=== PATIENT | male | born 1945 | race Caucasian/White ===

== ENCOUNTER 2023-12-10 04:08 | Inpatient (IN) | payer MEDICARE, SELFPAY ==
[2023-12-10] VITALS (21 sets, daily range): BP systolic 82–145; BP diastolic 38–79; PULSE 83–117; RESP 15–34; TEMP 36–36.9; O2SAT 89–100; BMI 20.6; BMI 20.2
--- NOTE | 2023-12-10 04:38 | RAD_ITS ---
INDICATION: dyspnea EXAMINATION/TECHNIQUE: X-RAY - XR Chest 2 Views COMPARISON: None. FINDINGS: LINES/DEVICES: None. LUNGS: Lungs mildly hyperexpanded on lateral view. Posterior right lower lobe airspace opacity, best seen on lateral view. Diffuse mild interstitial thickening. No effusion. No pneumothorax. MEDIASTINUM AND CARDIOVASCULAR STRUCTURES: Cardiac silhouette not enlarged. BONES AND SOFT TISSUES: Unremarkable. RAD/Chest PA and Lateral IMPRESSION: Posterior right lower lobe atelectasis or consolidation. Correlate for clinical pneumonia. Findings compatible with chronic obstructive pulmonary disease. Electronically Signed: Dejon Gomes MD at 6:03 EDT ,
--- NOTE | 2023-12-10 04:38 | EKG12_ITS ---
Test Reason : SOB Blood Pressure : / mmHG Vent. Rate : 107 BPM Atrial Rate : 107 BPM P-R Int : 144 ms QRS Dur : 130 ms QT Int : 372 ms P-R-T Axes : 062 118 -36 degrees QTc Int : 496 ms Sinus tachycardia with Premature atrial complexes with Aberrant conduction Right bundle branch block Left posterior fascicular block Bifascicular block Inferior infarct , age undetermined Abnormal ECG Confirmed by EDUARD SLAUGHTER, TAM ([id number]), associate editor ADA CARPENTER ([id number]) on 12/13/2023 2:09:14 PM Referred By: Confirmed By:CANDACE CHAPA MD
[2023-12-10] MEDS: Ipratropium/Albuterol Sulfate 3 ML AMPUL.NEB INHALATION (04:44)
[2023-12-10 04:46] LABS: Absolute Lymphocyte Count 2.67 X10^3/uL (0.83-4.51); Absolute Neutrophil Count 11.1 X10^3/uL (2.0-7.7); Basophil# 0.12 X10^3/uL; Basophil% 0.8 % (0-1); Eosinophil# 0.31 X10^3/uL; Eosinophils% 2.1 % (0-5); Hematocrit 39.1 % (40-54); Hemoglobin 12.6 g/dL (13.0-16.5); Lymphocyte # 2.67 X10^3/ul (0.83-4.51); Lymphocyte % 17.8 % (19-41); Mean Corp Hgb Conc 32.2 g/dL (32-36); Mean Corpuscular Hgb 29.4 pg (27.0-32.0); Mean Corpuscular Volume 91.4 fL (80-94); Mean Platelet Vol. 11.5 fl (6.2-12.0); Monocyte% 4.7 % (0-10); NRBC Flagged by Analyzer 0 % (0-5); Neutrophil # 11.14 X10^3/uL (2.7-7.7); Platelet Count 204 K/mm3 (150-450); RBC Distribution Width CV 14.3 % (11.6-14.6); RBC Distribution Width SD 47.8 fl (35.1-43.9); Red Blood Count 4.28 M/mm3 (4.6-6.2)
[2023-12-10 05:09] LABS: Anion Gap 6 (5-15); BUN 23 mg/dL (7-18); Calcium,Total 8.7 mg/dL (8.5-10.1); Chloride 105 mmol/L (98-107); Creatinine, Serum 1.44 mg/dL (0.70-1.30); EST Glomerular Filtration Rate 51 mL/min (>60); Est Glom Filt Rate - Afr Amer 61 mL/min (>60); Estimated Creatinine Clearance 37.43 ml/min; Glucose 147 mg/dL (74-106); Magnesium 2.1 mg/dL (1.6-2.6); Potassium 3.6 mmol/L (3.5-5.1); Sodium Level 138 mmol/L (136-145); Troponin-I HS 479 pg/mL (3.0-78.0)
--- NOTE | 2023-12-10 05:21 | CT_ITS ---
INDICATION: chest pain EXAMINATION: CTA CHEST, ABDOMEN AND PELVIS WITH CONTRAST - TECHNIQUE: A CTA of the chest, abdomen, and pelvis is obtained with sagittal and coronal reconstructed MIP views. Three-dimensional surface rendered sequence of the thoracic and abdominal aorta was obtained. A radiation dose optimization technique was used for this scan. 75 mL of Isovue-370. Oral contrast: None. COMPARISON: Chest radiograph on same day. FINDINGS: THORACIC AORTA: Three-vessel aortic arch. Aortic valvular calcifications. Mild aortic atherosclerosis. No dissection or ectasia. ABDOMINAL AORTA: Aortic atherosclerosis with minimal infrarenal ectasia to 2.1 cm. Aortic branch vessels are patent. Accessory left renal artery noted. Extensive iliac artery atherosclerosis without ectasia. . 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 CT CHEST: LUNGS: Trace layering pleural effusions. Lungs mildly hyperexpanded. Mild diffuse smooth interlobular septal thickening, most prominent lung bases with groundglass attenuation. Bilateral peribronchial thickening most prominent in the lower lungs. MEDIASTINUM: The thyroid gland is normal. No mediastinal or hilar adenopathy. HEART: No cardiomegaly or pericardial effusion. Severe calcified coronary atherosclerosis. CT ABDOMEN AND PELVIS: LIVER: The liver enhances homogeneously. No masses identified. GALLBLADDER: The CBD is normal. Normal gallbladder. SPLEEN: Normal. PANCREAS: No masses or inflammation. ADRENAL GLANDS: Normal. KIDNEYS AND URETERS: The kidneys both enhance appropriately. There are normal size and shape. No hydronephrosis or nephrolithiasis. No renal masses or cysts. BOWEL: No acute gastric finding. No small bowel distention or focal wall thickening. Normal appendix. Distal colonic diverticulosis without evidence of diverticulitis.. Right inguinal small bowel fat-containing hernia without inflammation or obstruction. Tiny fat-containing left inguinal hernia present. MESENTERY: No mesenteric inflammation. No ascites. IVC: Normal. RETROPERITONEUM: No retroperitoneal lymphadenopathy. PELVIC STRUCTURES: Bladder is well filled without wall thickening or surrounding inflammation. SOFT TISSUES ABDOMEN: The anterior abdominal wall is normal. SOFT TISSUE CHEST: The extrathoracic soft tissues are normal. BONES: No fractures or significant degenerative disease. CT/CTA Chst, Abd, Pel W and/or WO IMPRESSION: Aortic atherosclerosis without dissection or thoracic ectasia. There is mild infrarenal abdominal aortic ectasia to 2.1 cm. Severe calcified coronary atherosclerosis. Findings compatible acute on chronic bronchitis/bronchiolitis with peribronchial thickening most prominent in the lower lungs. Mild interstitial edema with trace layering effusions. Fat and small bowel containing right inguinal hernia without inflammation or evidence of obstruction. Distal colonic diverticulosis without evidence of diverticulitis. Mildly distended distended bladder. Correlate for ability to void. Electronically Signed: Dejon Gomes MD at 6:14 EDT ,
[2023-12-10] MEDS: 0.9% Normal Saline (500mL Bag) 500 ML 999 ML IV (05:37)
[2023-12-10 05:38] LABS: International Normalized Ratio 1.1; Partial Thromboplast Time 32.6 Seconds (24.1-36.2); Prothrombin Time (Protime)PT. 14.1 SECONDS (11.7-14.9)
--- NOTE | 2023-12-10 05:39 | EX.ED.DYSGE1 ---
HPI History of Present Illness Chief Complaint: Shortness of Breath Informant: patient, family and EMS Narrative Narrative: Patient is a 78-year-old male who is a poor historian but reports a past medical history of COPD from tobacco use but no need for supplemental oxygen. He also reports a history of coronary artery disease/peripheral vascular disease and need for stent placement of his lower aorta and bilateral legs. He states he is on Pletal secondary to this. He denies any fevers chills or known sick contacts and states that over the past 2 days he has been having intermittent bouts of shortness of breath. He states this evening/morning he was watching TV when he had increased shortness of breath and discomfort in his left arm. Secondary to his EMS was notified and when they arrived patient was replaced satting roughly 90% on room air and he was given DuoNeb and Solu-Medrol. Upon arrival to the ER the patient does report feeling better however with potential that this was COPD exacerbation versus infection versus coronary event a workup will be obtained [facility] Medical History no medical history Home Medications ?Medication ?Instructions ?Recorded ?Last Taken ?Type albuterol sulfate 90 mcg/actuation 2 puff inhalation Q4H PRN PRN 12/10/23 12/09/23 History aerosol inhaler shortness of breath or wheezing cilostazol 100 mg tablet 100 mg PO BID 12/10/23 12/09/23 History pantoprazole 40 mg tablet,delayed 40 mg PO BID 12/10/23 12/09/23 History release rosuvastatin 10 mg tablet 10 mg PO DAILY 12/10/23 12/09/23 History tamsulosin 0.4 mg capsule 0.4 mg PO DAILY 12/10/23 12/09/23 History Allergy/AdvReac Type Severity Reaction Status Date / Time pseudoephedrine Allergy Mild Hives Verified 12/10/23 05:38 Social History Smoking Status: Current some day smoker tobacco type: cigarettes ROS ROS ED Constitutional Constitutional ED: Denies chills or fever(s) Eyes Eyes: Denies blurry vision or change in vision ENT ENT ED: Denies rhinorrhea or sore throat Cardiovascular Cardiovascular: Denies chest pain or palpitations Respiratory/Chest Respiratory/Chest: Reports dyspnea; Denies cough Gastrointestinal Gastrointestinal: Denies abdominal pain, diarrhea, nausea or vomiting Genitourinary Genitourinary ED: Denies dysuria Musculoskeletal Musculoskeletal: Denies back pain or neck pain Integumentary Denies rash Neurologic Neurologic: Denies headache(s) Hematologic/Lymphatic Hematologic/Lymphatic: Reports easy bleeding and easy bruising Allergic/Immunologic Allergic/Immunologic ED: Denies mouth swelling or tongue swelling EXAM Physical Exam Const Vital Signs: 12/10/23 04:10 12/10/23 04:16 12/10/23 04:40 Temperature 96.8 F L 96.8 F L Temperature Source Temporal Temporal Pulse Rate 117 H 112 H Respiratory Rate 23 H 23 H Respiratory Effort Short of Breath Labored Respiratory Depth Shallow Respiratory Pattern Tachypnea Blood Pressure 133/70 H 133/70 H Blood Pressure Mean 91 91 Pulse Ox 98 97 Oxygen Delivery Method Nasal Cannula Nasal Cannula Nasal Cannula Oxygen Flow Rate (L/min) 2 2 2 12/10/23 04:45 12/10/23 05:10 12/10/23 05:16 Temperature 98 F Temperature Source Temporal Pulse Rate 100 115 H 110 H Respiratory Rate 15 25 H 27 H Respiratory Effort Respiratory Depth Respiratory Pattern Blood Pressure 121/77 H 121/77 H Blood Pressure Mean 91 91 Pulse Ox 96 95 Oxygen Delivery Method Nasal Cannula Room Air Oxygen Flow Rate (L/min) 2 12/10/23 05:36 12/10/23 06:00 12/10/23 06:00 Temperature 97.7 F L Temperature Source Temporal Pulse Rate 111 H 101 H 102 H Respiratory Rate 33 H 30 H 27 H Respiratory Effort Respiratory Depth Respiratory Pattern Blood Pressure 121/77 H 123/64 H 123/64 H Blood Pressure Mean 91 83 83 Pulse Ox 94 94 94 Oxygen Delivery Method Room Air Room Air Room Air Oxygen Flow Rate (L/min) 12/10/23 06:30 12/10/23 07:00 12/10/23 07:00 Temperature 98.4 F Temperature Source Temporal Pulse Rate 109 H 108 H 106 H Respiratory Rate 30 H 32 H Respiratory Effort Respiratory Depth Respiratory Pattern Blood Pressure 116/79 105/79 105/79 Blood Pressure Mean 87 87 Pulse Ox 95 94 Oxygen Delivery Method Room Air Room Air Oxygen Flow Rate (L/min) 12/10/23 07:08 Temperature Temperature Source Pulse Rate 110 H Respiratory Rate Respiratory Effort Respiratory Depth Respiratory Pattern Blood Pressure 105/79 Blood Pressure Mean Pulse Ox Oxygen Delivery Method Oxygen Flow Rate (L/min) Positive well nourished and well developed General Appearance ED: well developed; Negative for pallor HEENT HEENT Narrative: No tongue or lip swelling no oral lesions no airway edema or compromise No signs of infection noted in the posterior pharynx Eyes PERRL and EOMs intact bilaterally General Eye ED: Negative for scleral icterus Neck supple and no JVD Neck Narrative: No nuchal rigidity or meningeal signs Chest Wall palpation of chest normal Chest Narrative: No bony deformity or crepitance Resp normal respiratory effort Resp Narrative: Breath sounds are diminished throughout with diffuse expiratory wheeze consistent with history of COPD. There is also tachypnea noted However no nasal flaring retractions or accessory muscle use Cardio regular rhythm Rate: tachycardic and other Other Details: Tachycardic rate with regular rhythm There is an occasional ectopic beat noted Radial and carotid pulses are equal and symmetric GI normal to inspection, nondistended, normoactive bowel sounds, non-tender, non-distended and no masses GI Narrative: No voluntary guarding or rigidity or pulsatile mass Auscultation: normoactive bowel sounds Palpation: soft Extremity normal to inspection Extremity Narrative: No asymmetric edema no pitting edema negative Homans' sign bilaterally Neuro oriented x3, CN's II-XII intact bilaterally and no sensory deficits noted Sensorium / Orientation: alert Motor Exam: strength 5/5 throughout Psych mental status grossly normal Skin no rashes or lesions noted General Skin Exam: Negative for jaundice or pallor MDM MDM MDM Narrative Medical decision making narrative: Patient reported that he had had intermittent shortness of breath over the past few days which worsened this morning while at rest. He does have a history of COPD and continues to smoke and therefore was felt that symptoms were mostly related to his COPD exacerbation as his pulse ox was in the high 80s to low 90s initially. He also denied any chest pain upon initial evaluation associate with the shortness of breath but simply left arm numbness/tingling. Symptoms also seem to improve with administration of DuoNeb and steroids. However as there is concern this could be related to pneumonia or pneumothorax as well as acute coronary syndrome or cardiac dysrhythmia or even potentially blood loss anemia or electrolyte abnormality a basic workup was obtained. The patient's troponin is elevated at approximately 480 as he does have a history of peripheral vascular disease requiring stent placement there is concern that he could be having a pulmonary embolus or dissection. Therefore CTA of the chest abdomen and pelvis was performed. CT revealed no dissection or aneurysm or PE. It did document changes consistent with bronchitis which could be acute versus chronic and as patient has known COPD and has not had fever I do not feel this is acute infection but chronic irritation of the lung tissue. With the patient's initial troponin coming back at a value consistent with non-STEMI and he does have multiple risk factors I did discuss the case with administration professional on-call Dr. Santiago. At this time he does agree with heparin drip and recommends continuing to trend the patient's troponin. Therefore medicine was contacted and patient was admitted to the hospital. The patient reported resolution of his chest discomfort with 1 sublingual nitro and therefore was placed on 1 inch Nitropaste. His vitals have remained stable and he states that his pain has been gone ever since the sublingual nitro was given. Therefore this time patient will be admitted to the hospital for further evaluation of his non-STEMI History & Record Review Discussion w/independent historian: Patient and Family Lab Data Attestation: I reviewed the patient's lab results. Labs: Laboratory Results - last 24 hr 12/10/23 12/10/23 04:25 06:24 WBC 15.0 H RBC 4.28 L Hgb 12.6 L Hct 39.1 L MCV 91.4 MCH 29.4 MCHC 32.2 RDW Std Deviation 47.8 H RDW Coeff of Mike 14.3 Plt Count 204 MPV 11.5 Immature Gran % (Auto) 0.600 Neut % (Auto) 74.0 H Lymph % (Auto) 17.8 L [place] % (Auto) 4.7 Eos % (Auto) 2.1 Baso % (Auto) 0.8 Absolute Neuts (auto) 11.1 H Absolute Lymphs (auto) 2.67 Nucleated RBC % 0 PT 14.1 INR 1.1 APTT 32.6 Sodium 138 Potassium 3.6 Chloride 105 Carbon Dioxide 27.0 Anion Gap 6 BUN 23 H Creatinine 1.44 H Estim Creat Clear Calc 37.43 Est GFR (MDRD) Af Amer 61 Est GFR (MDRD) Non-Af 51 L BUN/Creatinine Ratio 16.0 Glucose 147 H Calcium 8.7 Magnesium 2.1 Troponin I High Sens 479 H* 969 H* Radiography Diagnostic Testing: Clinical Impression(s) from Imaging Studies Chest X-Ray 12/10/23 04:38 IMPRESSION: Posterior right lower lobe atelectasis or consolidation. Correlate for clinical pneumonia. Findings compatible with chronic obstructive pulmonary disease. Electronically Signed: Dejon Gomes MD at 6:03 EDT , Chest/Abdomen/Pelvis CTA 12/10/23 05:21 IMPRESSION: Aortic atherosclerosis without dissection or thoracic ectasia. There is mild infrarenal abdominal aortic ectasia to 2.1 cm. Severe calcified coronary atherosclerosis. Findings compatible acute on chronic bronchitis/bronchiolitis with peribronchial thickening most prominent in the lower lungs. Mild interstitial edema with trace layering effusions. Fat and small bowel containing right inguinal hernia without inflammation or evidence of obstruction. Distal colonic diverticulosis without evidence of diverticulitis. Mildly distended distended bladder. Correlate for ability to void. Electronically Signed: Dejon Gomes MD at 6:14 EDT , Chest x-ray as interpreted by the emergency medicine physician reveals COPD changes with atelectasis in the bilateral lower lobes Management Discussion w/another healthcare provider: Stereo Compiler Critical Care Time Critical Care Time: Yes Critical care time (excluding procedures): Discussing w/Patient &/or Family/System Configuration Specialist, Discussing w/Consultants and - (Critical care time of 33 minutes) Discharge Plan Dx/Rx/DC Orders Clinical Impression: Non-ST elevated myocardial infarction (non-STEMI), COPD (chronic obstructive pulmonary disease), Hypertension, Hyperlipidemia Disposition Disposition: Acute Care Hospital [facility]
--- NOTE | 2023-12-10 06:04 | EKG12_ITS ---
Test Reason : REPEAT Blood Pressure : / mmHG Vent. Rate : 110 BPM Atrial Rate : 110 BPM P-R Int : 144 ms QRS Dur : 136 ms QT Int : 368 ms P-R-T Axes : 049 120 -54 degrees QTc Int : 498 ms Sinus tachycardia Right bundle branch block Left posterior fascicular block Bifascicular block Inferior infarct , age undetermined Abnormal ECG Confirmed by EDUARD SLAUGHTER, TAM ([id number]), assistant film editor ADA CARPENTER ([id number]) on 12/13/2023 2:09:41 PM Referred By: Confirmed By:CANDACE CHAPA MD
[2023-12-10] MEDS: Heparin Injection (Vial) 5,000 UNIT/ML VIAL 4000 UNIT IV (06:06)
[2023-12-10] MEDS: HEPARIN/D5w 25,000 UNITS 25,000 UNITS/250 ML IV.SOLN. 8 UNITS CONT INF (06:09)
[2023-12-10] MEDS: Nitroglycerin SL (ED/IMG/CATH) 0.4 MG TABLET SL (06:30)
[2023-12-10 06:50] LABS: Troponin-I HS 969 pg/mL (3.0-78.0)
[2023-12-10] MEDS: Nitroglycerin Oint 1 INCH PACKET TD (07:08)
--- NOTE | 2023-12-10 07:27 | HP.PCM.HOS_ITS ---
HPI - General General Date of Admission: 12/10/23 Date of Service: 12/10/23 Chief Complaint: shortness of breath HPI Narrative TERRANCE RODRIGUEZ, is a 78 M with a PMH as outlined who was admitted via the ED on 12/10/2023 with a complaint of shortness of breath. He was apparently watching tv and said he noted he had shortness of breath which worsened, with associated left arm pain. He said he had been having the shortness of breath for several days, but it was mild. He denied any dizziness, nausea, lightheadedness, dizziness, palpitations or any other symptoms. Review of systems is otherwise negative. He has a history of COPD and continues to smoke. He also has a history of CAD and peripheral vascular disease and had stents inserted in his lower aorta and lower extremities. Vitals in the ED were temp of 97.7F, ID of 110, BP of 105/79, RR of 32 and oxygen sats of 94% on room air. CBC showed hemoglobin of 12.6 with WBC of 15 and platelets of 204. INR was 1.1. Chemistry was significant for creatinine of 1.44, sodium of 138 and potassium of 3.6. Initial troponin was 479 and trended upwards to 969. EKG showed no acute ST changes and showed bifascicular block. CXR showed posterior right lower lobe atelectasis or consolidation and CT chest/abdomen and pelvis done showed no evidence of aortic dissection and showed mild infrarenal abdominal aortic ectasia to 2.1cm, with severe calcified coronary atherosclerosis and evidene of acute on chronic bronchitis/bronchiolitis. He is being admitted to be managed for nonstemi. He was started on heparin drip in the ED. [facility] Medical History no medical history Home Medications ?Medication ?Instructions ?Recorded ?Last Taken ?Type albuterol sulfate 90 mcg/actuation 2 puff inhalation Q4H PRN PRN 12/10/23 12/09/23 History aerosol inhaler shortness of breath or wheezing aspirin 81 mg capsule 81 mg PO DAILY heart disease 12/10/23 Unknown History cilostazol 100 mg tablet 100 mg PO BID 12/10/23 12/09/23 History pantoprazole 40 mg tablet,delayed 40 mg PO BID 12/10/23 12/09/23 History release rosuvastatin 10 mg tablet 10 mg PO DAILY 12/10/23 12/09/23 History tamsulosin 0.4 mg capsule 0.4 mg PO DAILY 12/10/23 12/09/23 History Allergy/AdvReac Type Severity Reaction Status Date / Time pseudoephedrine Allergy Mild Hives Verified 12/10/23 05:38 Family History (Updated 12/10/23 @ 09:23 by Kayla Hwang) Son Heart disease Surgical History (Updated 12/10/23 @ 09:25 by Kayla Hwang) H/O endovascular stent graft for abdominal aortic aneurysm Social History (Updated 12/10/23 @ 09:23 by Kayla Hwang) Smoking Status: Light Smoker (<10/day) Tobacco: How many years used: 57 ROS Constitutional Constitutional: Reports fatigue and malaise; Denies anorexia, chills, fever(s) or weakness Eyes Eyes: Denies change in eye color ENT HEENT: Denies dysphagia, epistaxis or hearing loss Cardiovascular Cardiovascular: Denies dyspnea on exertion, edema, lightheadedness, orthopnea, palpitations, paroxysmal nocturnal dyspnea or rapid heart rate Respiratory/Chest Respiratory/Chest: Denies cough, hemoptysis, productive cough, shortness of breath at rest or shortness of breath with exertion Gastrointestinal Gastrointestinal: Denies abdominal pain, constipation, melena, nausea or vomiting Genitourinary Genitourinary: Denies burning urination or dysuria Musculoskeletal Musculoskeletal: Denies arthralgias Neurologic Neurologic: Denies confusion, dizziness, focal weakness, headache(s) or numbness Psychiatric Psychiatric: Denies anxiety or depression Vital Signs Vital Signs Vital Signs: 12/10/23 04:10 12/10/23 04:16 12/10/23 04:40 Temperature 96.8 F L 96.8 F L Temperature Source Temporal Temporal Pulse Rate 117 H 112 H Respiratory Rate 23 H 23 H Respiratory Effort Short of Breath Labored Respiratory Depth Shallow Respiratory Pattern Tachypnea Blood Pressure 133/70 H 133/70 H Blood Pressure Mean 91 91 Pulse Ox 98 97 Oxygen Delivery Method Nasal Cannula Nasal Cannula Nasal Cannula Oxygen Flow Rate (L/min) 2 2 2 12/10/23 04:45 12/10/23 05:10 12/10/23 05:16 Temperature 98 F Temperature Source Temporal Pulse Rate 100 115 H 110 H Respiratory Rate 15 25 H 27 H Respiratory Effort Respiratory Depth Respiratory Pattern Blood Pressure 121/77 H 121/77 H Blood Pressure Mean 91 91 Pulse Ox 96 95 Oxygen Delivery Method Nasal Cannula Room Air Oxygen Flow Rate (L/min) 2 12/10/23 05:36 12/10/23 06:00 12/10/23 06:00 Temperature 97.7 F L Temperature Source Temporal Pulse Rate 111 H 101 H 102 H Respiratory Rate 33 H 30 H 27 H Respiratory Effort Respiratory Depth Respiratory Pattern Blood Pressure 121/77 H 123/64 H 123/64 H Blood Pressure Mean 91 83 83 Pulse Ox 94 94 94 Oxygen Delivery Method Room Air Room Air Room Air Oxygen Flow Rate (L/min) 12/10/23 06:30 12/10/23 07:00 12/10/23 07:00 Temperature 98.4 F Temperature Source Temporal Pulse Rate 109 H 108 H 106 H Respiratory Rate 30 H 32 H Respiratory Effort Respiratory Depth Respiratory Pattern Blood Pressure 116/79 105/79 105/79 Blood Pressure Mean 87 87 Pulse Ox 95 94 Oxygen Delivery Method Room Air Room Air Oxygen Flow Rate (L/min) 12/10/23 07:08 Temperature Temperature Source Pulse Rate 110 H Respiratory Rate Respiratory Effort Respiratory Depth Respiratory Pattern Blood Pressure 105/79 Blood Pressure Mean Pulse Ox Oxygen Delivery Method Oxygen Flow Rate (L/min) Weight Weight: 135 lb 12.876 oz Body Mass Index (BMI) 20.6 Physical Exam Const alert, no apparent distress and average body habitus General Appearance: cooperative HEENT normocephalic, head/scalp atraumatic, moist oral mucous membranes and oropharynx normal Mouth: oral and palatal mucosa normal Eyes PERRL and EOMs intact bilaterally Resp normal respiratory effort, no use of accessory muscles and clear to auscultation bilaterally Cardio regular rate, regular rhythm, S1 normal heart sound, S2 normal heart sound and no murmurs GI normal to inspection, nondistended, normoactive bowel sounds, soft to palpation and non-tender Extremity normal to inspection, full ROM and no clubbing, cyanosis or edema Neuro oriented x3, CN's II-XII intact bilaterally, moves all extremities and no focal motor deficits Sensorium / Orientation: awake Motor Exam: strength 5/5 throughout Psych affect normal Results Lab / Micro Data 12/10/23 04:25 12/10/23 04:25 Labs: Laboratory Results - last 24 hr 12/10/23 04:25: WBC 15.0 H, RBC 4.28 L, Hgb 12.6 L, Hct 39.1 L, MCV 91.4, MCH 29.4, MCHC 32.2, RDW Std Deviation 47.8 H, RDW Coeff of Mike 14.3, Plt Count 204, MPV 11.5, Immature Gran % (Auto) 0.600, Neut % (Auto) 74.0 H, Lymph % (Auto) 17.8 L, [place] % (Auto) 4.7, Eos % (Auto) 2.1, Baso % (Auto) 0.8, Absolute Neuts (auto) 11.1 H, Absolute Lymphs (auto) 2.67, Nucleated RBC % 0, PT 14.1, INR 1.1, APTT 32.6, Sodium 138, Potassium 3.6, Chloride 105, Carbon Dioxide 27.0, Anion Gap 6, BUN 23 H, Creatinine 1.44 H, Estim Creat Clear Calc 37.43, Est GFR (MDRD) Af Amer 61, Est GFR (MDRD) Non-Af 51 L, BUN/Creatinine Ratio 16.0, Glucose 147 H , Calcium 8.7, Magnesium 2.1, Troponin I High Sens 479 H* 12/10/23 06:24: Troponin I High Sens 969 H* Imaging Radiology Impression Chest X-Ray 12/10/23 04:38 IMPRESSION: Posterior right lower lobe atelectasis or consolidation. Correlate for clinical pneumonia. Findings compatible with chronic obstructive pulmonary disease. Electronically Signed: Dejon Gomes MD at 6:03 EDT Reading Location ID and State: [facility] / [place] Tel , Service support , Chest/Abdomen/Pelvis CTA 12/10/23 05:21 IMPRESSION: Aortic atherosclerosis without dissection or thoracic ectasia. There is mild infrarenal abdominal aortic ectasia to 2.1 cm. Severe calcified coronary atherosclerosis. Findings compatible acute on chronic bronchitis/bronchiolitis with peribronchial thickening most prominent in the lower lungs. Mild interstitial edema with trace layering effusions. Fat and small bowel containing right inguinal hernia without inflammation or evidence of obstruction. Distal colonic diverticulosis without evidence of diverticulitis. Mildly distended distended bladder. Correlate for ability to void. Electronically Signed: Dejon Gomes MD at 6:14 EDT Reading Location ID and State: [facility] / [place] Tel , Service support , Assessment & Plan Assessment/Plan (1) Non-ST elevated myocardial infarction (non-STEMI): PLAN: Plan #Nonstemi * admitted with a complaint of shortness of breath as well as left arm pain * initial troponin was 469, and trended upwards to 949. * EKG showed no acute ST changes and showed chronic bifascicular block * admit to PCU * start on heparin drip, aspirin and loading dose of plavix, as well as high intensity statin * cardiology consulted * get 2D echo * #COPD: CXR showed evidence of acute bronchitis. Breathing treatment with bronchodilators. hold off on steroids for now as he is not in COPD exacerbation #Elevated creatinine: Creatinine is 1.44. Baseline not known. Will hydrate gently with IVF and trend Cr. #Hyperlipidemia: on statin #Peripheral artery disease * s/p stents in lower abdominal aorta and lower extremities * on pletal and statin * #BPH: on flomax DVT prophylaxis: on heparin COde status: full code * Patient counseled extensively about different types of CODE STATUS including full code, DNR CCA and DNR CCA. Patient elects to be full code. * Total [id number] time: 16 minutes. Charges/Coding Visit Charges Inpatient E&M: 96004 Init Hosp L3 Procedures Hospitalists Procedures: 42369 Advncd Care Plan 30 Min
--- NOTE | 2023-12-10 09:16 | ECHOD_ITS ---
Reason For Study: CHEST PAIN Procedure This was a 2D Doppler, Color Flow transthoracic echocardiogram. Myocardial strain analysis was performed in this exam to aid in the assessment of cardiac function. Exam performed portable in patient room. Left Ventricle Normal LV size. The estimated ejection fraction is 40-45 %. Mild hypokinesis of the anterior wall and lateral wall. Right Ventricle Normal RV size. Normal systolic function. Atria The left atrium is mildly enlarged. Normal right atrium. No doppler evidence for ASD. Mitral Valve There is no mitral valve stenosis. Mild (1+) mitral valve insufficiency. Tricuspid Valve There is no tricuspid stenosis. Trivial tricuspid valve insufficiency. Unable to estimate RV systolic pressure due to insufficient tricuspid regurgitant envelope. Aortic Valve Severe diffuse aortic valve thickening. Moderate aortic stenosis. Mild (1+) aortic valve insufficiency. Pulmonic Valve There is no pulmonic valvular stenosis. No pulmonic valve insufficiency. Great Vessels Normal aortic root. Pericardium/Pleural No pericardial effusion. MMode/2D Measurements & Calculations LVIDd: 5.1 cm IVSd: 1.1 cm LVOT diam: 2.0 cm LVIDs: 4.1 cm LVPWd: 0.86 cm LVOT area: 3.2 cm2 RVDd: 3.7 cm FS: 18.8 % Ao root diam: 3.6 cm LAV(MOD-bp): 89.8 ml LVAd ap4: 37.0 cm2 LAV(MOD-bp) Indexed: 51.9 ml/m2 LVLd ap4: 8.8 cm LAV(MOD-sp2): 96.2 ml EDV(MOD-sp4): 125.2 ml LAV(MOD-sp4): 81.9 ml EDV(sp4-el): 132.2 ml LVAs ap4: 28.9 cm2 LVLs ap4: 8.2 cm ESV(MOD-sp4): 84.2 ml ESV(sp4-el): 86.7 ml EF(MOD-sp4): 32.7 % EF(sp4-el): 34.4 % LVAd ap2: 34.8 cm2 SV(MOD-sp4): 40.9 ml SV(MOD-sp2): 31.1 ml LVLd ap2: 9.0 cm EDV(MOD-sp2): 113.8 ml EDV(sp2-el): 113.9 ml LVAs ap2: 28.0 cm2 LVLs ap2: 8.0 cm ESV(MOD-sp2): 82.7 ml ESV(sp2-el): 83.2 ml EF(MOD-sp2): 27.3 % SV(sp4-el): 45.5 ml LA dimension(2D): 4.4 cm LA A4 area: 24.2 cm2 RA A4 area: 14.2 cm2 TAPSE: 1.8 cm Time Measurements MV dec time: 0.12 sec Doppler Measurements & Calculations MV E max james: 117.1 cm/sec Lat Peak E' James: 8.1 cm/sec Med Peak E' James: 7.2 cm/sec MV A max james: 56.7 cm/sec E/E' lat: 14.5 E/E' med: 16.3 MV E/A: 2.1 Ao V2 max: 346.1 cm/sec AI max james: 365.9 cm/sec MV dec slope: 997.1 cm/sec2 Ao max P.0 mmHg AI max P.6 mmHg Ao V2 mean: 277.1 cm/sec Ao mean P.5 mmHg AI dec slope: 527.4 cm/sec2 Ao V2 VTI: 66.6 cm AI P1/2t: 203.2 msec AV (velocity ratio): 0.29 TEODORA(I,D): 0.93 cm2 TEODORA(V,D): 0.76 cm2 LV V1 max: 81.2 cm/sec SV(LVOT): 62.0 ml TV V2 max: 270.4 cm/sec LV V1 max P.6 mmHg TV max P.2 mmHg LV V1 mean P.6 mmHg LV V1 mean: 58.7 cm/sec LV V1 VTI: 19.1 cm PA V2 max: 79.0 cm/sec PA max PG (full): 0.08 mmHg ECHO/Echo Complete Interpretation Summary The estimated ejection fraction is 40-45 %. Mild hypokinesis of the anterior wall and lateral wall Mild (1+) mitral valve insufficiency. Moderate aortic stenosis. Mild (1+) aortic valve insufficiency. Ordering Physician: Mildred Weaver Performed By: Nena Nogueira RDCS
[2023-12-10 10:35] LABS: Troponin-I HS 3490 pg/mL (3.0-78.0)
[2023-12-10] MEDS: Aspirin E.C. 81 MG Tablet PO (12:40)
[2023-12-10] MEDS: Pantoprazole Sodium 40 MG Tablet PO ×2 (12:41→21:29)
[2023-12-10] MEDS: Clopidogrel Bisulfate 75 MG Tablet PO (12:41)
--- NOTE | 2023-12-10 14:41 | CON.PCM.CA_ITS ---
Assessment & Plan Assessment/Plan (1) Non-ST elevated myocardial infarction (non-STEMI): PLAN: Agree with IV heparin. Patient currently has orthopnea. Echo showed an EF of 40 to 45% with regional wall motion abnormalities. Will try 2 doses of IV Lasix to see if this helps with his symptoms. Patient is already on aspirin, Plavix, statin. Recommend starting him on carvedilol 3.125 mg p.o. twice daily and lisinopril 2.5 mg p.o. daily. Will plan on proceeding with coronary angiography on Tuesday. Plan was discussed with the patient in detail. (2) Shortness of breath: HPI Consult Data Date of Consult: 12/10/23 HPI Narrative Reason for Consultation: Non-STEMI HPI Narrative: TERRANCE RODRIGUEZ, is a 78 M who presents with shortness of breath. He denies any chest pain. Patient's troponin was elevated and he was started on heparin drip. He is currently admitted in the PCU. He has orthopnea but otherwise denies chest pain or shortness of breath. Review of systems: All systems reviewed. All else is negative except in HPI PFSH Medical History no medical history Home Medications ?Medication ?Instructions ?Recorded ?Last Taken ?Type albuterol sulfate 90 mcg/actuation 2 puff inhalation Q4H PRN PRN 12/10/23 12/09/23 History aerosol inhaler shortness of breath or wheezing aspirin 81 mg capsule 81 mg PO DAILY heart disease 12/10/23 Unknown History cilostazol 100 mg tablet 100 mg PO BID 12/10/23 12/09/23 History pantoprazole 40 mg tablet,delayed 40 mg PO BID 12/10/23 12/09/23 History release rosuvastatin 10 mg tablet 10 mg PO DAILY 12/10/23 12/09/23 History tamsulosin 0.4 mg capsule 0.4 mg PO DAILY 12/10/23 12/09/23 History Allergy/AdvReac Type Severity Reaction Status Date / Time pseudoephedrine Allergy Mild Hives Verified 12/10/23 05:38 Family History (Updated 12/10/23 @ 09:23 by Kayla Hwang) Son Heart disease Surgical History (Updated 12/10/23 @ 09:25 by Kayla Hwang) H/O endovascular stent graft for abdominal aortic aneurysm Social History (Updated 12/10/23 @ 09:23 by Kayla Baker Smoking Status: Light Smoker (<10/day) Tobacco: How many years used: 57 Physical Exam Const alert and oriented x3 HEENT normocephalic Eyes no scleral icterus Resp Resp Narrative: Bibasal crackles Cardio regular rhythm Extremity no pedal edema Psych mental status grossly normal Risk Stratification Risk Stratification Applicable: No Charges/Coding Visit Charges Inpatient E&M: 40662 Init Hosp L2 Objective Data Vital Signs: Vital Signs Temp Pulse Resp BP Pulse Ox O2 Del Method O2 Flow Rate 97.7 F L 98 16 106/65 98 Room Air 2 12/10/23 12:44 12/10/23 12:44 12/10/23 12:44 12/10/23 12:44 12/10/23 12:44 12/10/23 12:44 12/10/23 05:10 Oxygen Flow Rate (L/min) 2 Oxygen Delivery Method Room Air Weight: 132 lb 11.492 oz Body Mass Index (BMI) 20.2 Intake & Output: Intake and Output for Last 24 Hours 12/08/23 12/09/23 12/10/23 23:59 23:59 23:59 Intake Total 500 / 500 Balance 500 / 500 Lab / Micro Data 12/10/23 04:25 12/10/23 04:25 Labs: Laboratory Results - last 24 hr 12/10/23 04:25: WBC 15.0 H, RBC 4.28 L, Hgb 12.6 L, Hct 39.1 L, MCV 91.4, MCH 29.4, MCHC 32.2, RDW Std Deviation 47.8 H, RDW Coeff of Mike 14.3, Plt Count 204, MPV 11.5, Immature Gran % (Auto) 0.600, Neut % (Auto) 74.0 H, Lymph % (Auto) 17.8 L, [place] % (Auto) 4.7, Eos % (Auto) 2.1, Baso % (Auto) 0.8, Absolute Neuts (auto) 11.1 H, Absolute Lymphs (auto) 2.67, Nucleated RBC % 0, PT 14.1, INR 1.1, APTT 32.6, Sodium 138, Potassium 3.6, Chloride 105, Carbon Dioxide 27.0, Anion Gap 6, BUN 23 H, Creatinine 1.44 H, Estim Creat Clear Calc 37.43, Est GFR (MDRD) Af Amer 61, Est GFR (MDRD) Non-Af 51 L, BUN/Creatinine Ratio 16.0, Glucose 147 H , Calcium 8.7, Magnesium 2.1, Troponin I High Sens 479 H* 12/10/23 06:24: Troponin I High Sens 969 H* 12/10/23 10:10: Troponin I High Sens 3490 H* 12/10/23 12:05: APTT 56.0 H Cardiology Labs/Tests 12/10/23 04:25: WBC 15.0 H, RBC 4.28 L, Hgb 12.6 L, Hct 39.1 L, MCV 91.4, MCH 29.4, MCHC 32.2, Plt Count 204, MPV 11.5, Immature Gran % (Auto) 0.600, Neut % (Auto) 74.0 H, Lymph % (Auto) 17.8 L, [place] % (Auto) 4.7, Eos % (Auto) 2.1, Baso % (Auto) 0.8, Absolute Neuts (auto) 11.1 H, Nucleated RBC % 0, PT 14.1, INR 1.1, APTT 32.6, Sodium 138, Potassium 3.6, Chloride 105, Carbon Dioxide 27.0, Anion Gap 6, BUN 23 H, Creatinine 1.44 H, Est GFR (MDRD) Af Amer 61, Est GFR (MDRD) Non-Af 51 L, BUN/Creatinine Ratio 16.0, Glucose 147 H, Calcium 8.7, Magnesium 2.1 12/10/23 12:05: APTT 56.0 H Rhythm: EKG: ECHO: Stress Test: Cardiac Cath: PCI: CT Surgery: Holter monitor: EPS: PPM: CXR: Chest CT Scan: Radiography Diagnostic Testing: Radiology Impression Chest X-Ray 12/10/23 04:38 IMPRESSION: Posterior right lower lobe atelectasis or consolidation. Correlate for clinical pneumonia. Findings compatible with chronic obstructive pulmonary disease. Electronically Signed: Dejon Gomes MD at 6:03 EDT , Chest/Abdomen/Pelvis CTA 12/10/23 05:21 IMPRESSION: Aortic atherosclerosis without dissection or thoracic ectasia. There is mild infrarenal abdominal aortic ectasia to 2.1 cm. Severe calcified coronary atherosclerosis. Findings compatible acute on chronic bronchitis/bronchiolitis with peribronchial thickening most prominent in the lower lungs. Mild interstitial edema with trace layering effusions. Fat and small bowel containing right inguinal hernia without inflammation or evidence of obstruction. Distal colonic diverticulosis without evidence of diverticulitis. Mildly distended distended bladder. Correlate for ability to void. Electronically Signed: Dejon Gomes MD at 6:14 EDT , Echocardiogram 12/10/23 09:16 Interpretation Summary The estimated ejection fraction is 40-45 %. Mild hypokinesis of the anterior wall and lateral wall Mild (1+) mitral valve insufficiency. Moderate aortic stenosis. Mild (1+) aortic valve insufficiency. Ordering Physician: Mildred Weaver Performed By: Nena Nogueira, RDLYNSEY
[2023-12-10] MEDS: Tamsulosin HCl 0.4 MG Capsule PO (16:19)
[2023-12-10] MEDS: Furosemide 40 MG/4 ML Vial IV (16:19)
[2023-12-10 18:31] LABS: Partial Thromboplast Time 49.4 Seconds (24.1-36.2)
[2023-12-10] MEDS: Atorvastatin Calcium 40 MG Tablet PO (21:29)
[2023-12-10] MEDS: Cilostazol 50 MG Tablet 100 MG PO (21:29)
[2023-12-10] MEDS: MELATONIN 3 MG TABLET PO (22:21)
[2023-12-11] VITALS (7 sets, daily range): BP systolic 104–131; BP diastolic 53–67; PULSE 80–100; RESP 16–20; TEMP 36.3–36.7; O2SAT 97–98
[2023-12-11 01:40] LABS: Partial Thromboplast Time 72.3 Seconds (24.1-36.2)
[2023-12-11 08:20] LABS: Absolute Lymphocyte Count 2.19 X10^3/uL (0.83-4.51); Absolute Neutrophil Count 13.5 X10^3/uL (2.0-7.7); Basophil# 0.08 X10^3/uL; Basophil% 0.5 % (0-1); Eosinophil# 0.13 X10^3/uL; Eosinophils% 0.8 % (0-5); Hematocrit 40.5 % (40-54); Hemoglobin 13.4 g/dL (13.0-16.5); Lymphocyte # 2.19 X10^3/ul (0.83-4.51); Lymphocyte % 12.9 % (19-41); Mean Corp Hgb Conc 33.1 g/dL (32-36); Mean Corpuscular Hgb 30.5 pg (27.0-32.0); Mean Corpuscular Volume 92.3 fL (80-94); Mean Platelet Vol. 11.4 fl (6.2-12.0); Monocyte# 0.97 X10^3/uL; Monocyte% 5.7 % (0-10); NRBC Flagged by Analyzer 0 % (0-5); Neutrophil % 79.6 % (47-70); POSITIVE MORPHOLOGY YES; Platelet Count 207 K/mm3 (150-450); RBC Distribution Width CV 14.5 % (11.6-14.6); RBC Distribution Width SD 49.6 fl (35.1-43.9); Red Blood Count 4.39 M/mm3 (4.6-6.2)
[2023-12-11 08:57] LABS: Anion Gap 4 (5-15); BUN 20 mg/dL (7-18); BUN/Creat Ratio 16.1 RATIO (10-20); Chloride 107 mmol/L (98-107); Creatinine, Serum 1.24 mg/dL (0.70-1.30); EST Glomerular Filtration Rate 60 mL/min (>60); Est Glom Filt Rate - Afr Amer 73 mL/min (>60); Estimated Creatinine Clearance 42.48 ml/min; Glucose 122 mg/dL (74-106); Potassium 4.1 mmol/L (3.5-5.1); Sodium Level 138 mmol/L (136-145)
[2023-12-11 09:01] LABS: Differential Indicated SCAN CRITERIA MET
[2023-12-11] MEDS: Furosemide 40 MG/4 ML Vial IV ×2 (10:42→15:12)
[2023-12-11] MEDS: Lisinopril 2.5 MG Tablet PO (10:43)
[2023-12-11] MEDS: Carvedilol 3.125 MG TABLET PO ×2 (10:43→21:25)
[2023-12-11] MEDS: Pantoprazole Sodium 40 MG Tablet PO ×2 (10:44→21:25)
[2023-12-11] MEDS: Aspirin E.C. 81 MG Tablet PO (10:44)
--- NOTE | 2023-12-11 11:03 | PN_ITS ---
Subjective Subjective Patient seen and examined. He had no complaints and had an uneventful night. Review of systems otherwise negative. He has remained hemodynamically stable. He is for cardiac cath tomorrow. He is on room air. Objective Data Objective Data Vital Signs: Vital Signs Temp Pulse Resp BP Pulse Ox O2 Del Method O2 Flow Rate 98.1 F 89 16 111/61 98 Room Air 2 12/11/23 10:00 12/11/23 10:00 12/11/23 10:00 12/11/23 10:00 12/11/23 10:00 12/11/23 10:00 12/11/23 09:09 Oxygen Flow Rate (L/min) 2 Oxygen Delivery Method Room Air Weight: 132 lb 11.492 oz Body Mass Index (BMI) 20.2 Intake & Output: Intake and Output for Last 24 Hours 12/09/23 12/10/23 12/11/23 23:59 23:59 23:59 Intake Total 964.53 / 1444.53 544.8 / 544.8 Balance 964.53 / 1444.53 544.8 / 544.8 Lab / Micro Data 12/11/23 08:12 12/11/23 08:12 Labs: Laboratory Results - last 24 hr 12/10/23 12:05: APTT 56.0 H 12/10/23 18:05: APTT 49.4 H 12/11/23 01:13: APTT 72.3 H 12/11/23 08:12: WBC 17.0 H, RBC 4.39 L, Hgb 13.4, Hct 40.5, MCV 92.3, MCH 30.5, MCHC 33.1, RDW Std Deviation 49.6 H, RDW Coeff of Mike 14.5, Plt Count 207, MPV 11.4, Immature Gran % (Auto) 0.500, Neut % (Auto) 79.6 H, Lymph % (Auto) 12.9 L, [place] % (Auto) 5.7, Eos % (Auto) 0.8, Baso % (Auto) 0.5, Absolute Neuts (auto) 13.5 H, Absolute Lymphs (auto) 2.19, Nucleated RBC % 0, APTT 63.0 H, Sodium 138, Potassium 4.1, Chloride 107, Carbon Dioxide 27.0, Anion Gap 4 L, BUN 20 H, Creatinine 1.24, Estim Creat Clear Calc 42.48, Est GFR (MDRD) Af Amer 73, Est GFR (MDRD) Non-Af 60, BUN/Creatinine Ratio 16.1, Glucose 122 H, Calcium 9.0 Radiography Diagnostic Testing: Radiology Impression Echocardiogram 12/10/23 09:16 Interpretation Summary The estimated ejection fraction is 40-45 %. Mild hypokinesis of the anterior wall and lateral wall Mild (1+) mitral valve insufficiency. Moderate aortic stenosis. Mild (1+) aortic valve insufficiency. Ordering Physician: Mildred Weaver Performed By: Nena Nogueira RDCS Physical Exam Const alert, oriented x3, no apparent distress and average body habitus General Appearance: cooperative HEENT normocephalic, head/scalp atraumatic, moist oral mucous membranes and oropharynx normal Eyes PERRL and EOMs intact bilaterally Neck no lymphadenopathy and supple Resp normal respiratory effort, normal air movement, no use of accessory muscles and clear to auscultation bilaterally Cardio regular rate, regular rhythm, S1 normal heart sound, S2 normal heart sound and no murmurs GI normal to inspection, nondistended, normoactive bowel sounds, soft to palpation and non-tender Extremity normal to inspection, full ROM, normal capillary refill and no clubbing, cyanosis or edema Skin General Skin Exam: no breakdown Neuro oriented x3, CN's II-XII intact bilaterally, moves all extremities and no focal motor deficits Sensorium / Orientation: awake Motor Exam: strength 5/5 throughout Psych thought process normal, cooperative and affect normal Appearance: appropriate Assessment & Plan Assessment/Plan (1) Non-ST elevated myocardial infarction (non-STEMI): PLAN: Plan #Nonstemi * admitted with a complaint of shortness of breath as well as left arm pain * initial troponin was 469, and trended upwards to 949 and to a peak of 3490. * EKG showed no acute ST changes and showed chronic bifascicular block * admit to PCU * on heparin drip, aspirin and plavix, as well as high intensity statin * cardiology on board; for cardiac cath tomorrow * 2D echo showed EF of 40 to 45% with mild hypokinesis of the anterior and lateral maloney and moderate aortic stenosis * * #COPD: CXR showed evidence of acute bronchitis. Breathing treatment with bronchodilators. hold off on steroids for now as he is not in COPD exacerbation #Elevated creatinine: Creatinine is down to 1.24 from 1.44. Improving. Will monitor. #Hyperlipidemia: on statin #Peripheral artery disease * s/p stents in lower abdominal aorta and lower extremities * on pletal and statin * pletal held as he is on plavix now * #BPH: on flomax DVT prophylaxis: on heparin drip Code status: full code * Charges/Coding Visit Charges Inpatient E&M: 51956 Subs Hosp L2
[2023-12-11] MEDS: Clopidogrel Bisulfate 75 MG Tablet PO (13:24)
[2023-12-11] MEDS: HEPARIN/D5w 25,000 UNITS 25,000 UNITS/250 ML IV.SOLN. 8 UNITS CONT INF (13:25)
[2023-12-11 14:38] LABS: Partial Thromboplast Time 70.2 Seconds (24.1-36.2)
[2023-12-11] MEDS: Tamsulosin HCl 0.4 MG Capsule PO (18:46)
[2023-12-11] MEDS: Atorvastatin Calcium 40 MG Tablet PO (21:25)
[2023-12-11] MEDS: MELATONIN 3 MG TABLET PO (21:25)
[2023-12-11 22:00] LABS: Partial Thromboplast Time 98.6 Seconds (24.1-36.2)
[2023-12-12] VITALS (13 sets, daily range): BP systolic 87–110; BP diastolic 52–76; PULSE 66–95; RESP 15–18; TEMP 36.3–36.7; O2SAT 95–100
[2023-12-12 04:21] LABS: Absolute Lymphocyte Count 3.11 X10^3/uL (0.83-4.51); Absolute Neutrophil Count 8.2 X10^3/uL (2.0-7.7); Basophil# 0.09 X10^3/uL; Basophil% 0.7 % (0-1); Eosinophil# 0.31 X10^3/uL; Eosinophils% 2.4 % (0-5); Hematocrit 39.8 % (40-54); Hemoglobin 13.3 g/dL (13.0-16.5); Lymphocyte # 3.11 X10^3/ul (0.83-4.51); Lymphocyte % 24.5 % (19-41); Mean Corp Hgb Conc 33.4 g/dL (32-36); Mean Corpuscular Hgb 30.4 pg (27.0-32.0); Mean Corpuscular Volume 91.1 fL (80-94); Mean Platelet Vol. 11.7 fl (6.2-12.0); Monocyte# 0.92 X10^3/uL; Monocyte% 7.3 % (0-10); NRBC Flagged by Analyzer 0 % (0-5); Neutrophil % 64.8 % (47-70); Platelet Count 206 K/mm3 (150-450); RBC Distribution Width CV 14.3 % (11.6-14.6); Red Blood Count 4.37 M/mm3 (4.6-6.2); White Blood Count 12.7 K/mm3 (4.4-11.0)
[2023-12-12 04:43] LABS: Anion Gap 5 (5-15); BUN 26 mg/dL (7-18); Calcium,Total 9.1 mg/dL (8.5-10.1); Chloride 101 mmol/L (98-107); EST Glomerular Filtration Rate 57 mL/min (>60); Est Glom Filt Rate - Afr Amer 69 mL/min (>60); Estimated Creatinine Clearance 40.52 ml/min; Glucose 100 mg/dL (74-106); Potassium 3.6 mmol/L (3.5-5.1); Sodium Level 136 mmol/L (136-145)
--- NOTE | 2023-12-12 05:00 | EKG12_ITS ---
Test Reason : AM EKG Blood Pressure : / mmHG Vent. Rate : 076 BPM Atrial Rate : 076 BPM P-R Int : 136 ms QRS Dur : 136 ms QT Int : 432 ms P-R-T Axes : 059 099 -13 degrees QTc Int : 486 ms Sinus rhythm with frequent Premature ventricular complexes Right bundle branch block Inferior infarct , age undetermined Anterior infarct , age undetermined Abnormal ECG When compared with ECG of 10-DEC-2023 06:06, MANUAL COMPARISON REQUIRED, DATA IS UNCONFIRMED Confirmed by EDUARD SLAUGHTER, TAM ([id number]), editor department KENYA SLAUGHTER ([id number]) on 12/16/2023 9:47:54 AM Referred By: SALEEM Confirmed By:CANDACE CHAPA MD
[2023-12-12] MEDS: Clopidogrel Bisulfate 75 MG Tablet PO (06:25)
[2023-12-12] MEDS: Aspirin E.C. 81 MG Tablet PO (06:25)
--- NOTE | 2023-12-12 09:17 | NURSING ---
Report called to [facility] [employer]. 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
--- NOTE | 2023-12-12 09:25 | PN_ITS ---
Subjective Subjective Patient seen and examined. His son was by his bedside. He had no active complaints and had an uneventful night. Review of systems otherwise negative. He is for cardiac cath today. He has remained hemodynamically stable. Objective Data Objective Data Vital Signs: Vital Signs Temp Pulse Resp BP Pulse Ox O2 Del Method O2 Flow Rate 97.8 F 76 18 93/52 L 96 Room Air 2 12/12/23 06:24 12/12/23 06:24 12/12/23 06:24 12/12/23 06:24 12/12/23 08:13 12/12/23 08:15 12/11/23 15:13 Oxygen Flow Rate (L/min) 2 Oxygen Delivery Method Room Air Weight: 132 lb 11.492 oz Body Mass Index (BMI) 20.2 Intake & Output: Intake and Output for Last 24 Hours 12/10/23 12/11/23 12/12/23 23:59 23:59 23:59 Intake Total 964.53 / 1444.53 2137.65 / 2137.65 Balance 964.53 / 1444.53 2137.65 / 2137.65 Lab / Micro Data 12/12/23 03:55 12/12/23 03:55 Labs: Laboratory Results - last 24 hr 12/11/23 14:05: APTT 70.2 H 12/11/23 21:30: APTT 98.6 H* 12/12/23 03:55: WBC 12.7 H, RBC 4.37 L, Hgb 13.3, Hct 39.8 L, MCV 91.1, MCH 30.4, MCHC 33.4, RDW Std Deviation 48.0 H, RDW Coeff of Mike 14.3, Plt Count 206, MPV 11.7, Immature Gran % (Auto) 0.300, Neut % (Auto) 64.8, Lymph % (Auto) 24.5, [place] % (Auto) 7.3, Eos % (Auto) 2.4, Baso % (Auto) 0.7, Absolute Neuts (auto) 8.2 H, Absolute Lymphs (auto) 3.11, Nucleated RBC % 0, APTT 61.0 H, Sodium 136, Potassium 3.6, Chloride 101, Carbon Dioxide 30.0, Anion Gap 5, BUN 26 H, Creatinine 1.30, Estim Creat Clear Calc 40.52, Est GFR (MDRD) Af Amer 69, Est GFR (MDRD) Non-Af 57 L, BUN/Creatinine Ratio 20.0, Glucose 100, Calcium 9.1 Physical Exam Const alert, oriented x3, no apparent distress and average body habitus General Appearance: cooperative HEENT normocephalic, head/scalp atraumatic, moist oral mucous membranes and oropharynx normal Eyes PERRL and EOMs intact bilaterally Neck no lymphadenopathy and supple Resp normal respiratory effort, normal air movement, no use of accessory muscles and clear to auscultation bilaterally Cardio regular rate, regular rhythm, S1 normal heart sound, S2 normal heart sound and no murmurs GI normal to inspection, nondistended, normoactive bowel sounds, soft to palpation and non-tender Extremity normal to inspection, full ROM, normal capillary refill and no clubbing, cyanosis or edema Skin General Skin Exam: no breakdown Neuro oriented x3, CN's II-XII intact bilaterally, moves all extremities and no focal motor deficits Sensorium / Orientation: awake Motor Exam: strength 5/5 throughout Psych thought process normal, cooperative and affect normal Appearance: appropriate Assessment & Plan Assessment/Plan (1) Non-ST elevated myocardial infarction (non-STEMI): PLAN: Plan #Nonstemi * admitted with a complaint of shortness of breath as well as left arm pain * initial troponin was 469, and trended upwards to 949 and to a peak of 3490. * EKG showed no acute ST changes and showed chronic bifascicular block * admit to PCU * on heparin drip, aspirin and plavix, as well as high intensity statin * cardiology on board; for cardiac cath tomorrow * 2D echo showed EF of 40 to 45% with mild hypokinesis of the anterior and lateral maloney and moderate aortic stenosis * * #COPD: CXR showed evidence of acute bronchitis. Breathing treatment with bronchodilators. hold off on steroids for now as he is not in COPD exacerbation. On room air. #Elevated creatinine: Creatinine is 1.3 today. Stable. Will monitor #Hyperlipidemia: on statin #Peripheral artery disease * s/p stents in lower abdominal aorta and lower extremities * on pletal and statin * pletal held as he is on plavix now * #BPH: on flomax DVT prophylaxis: on heparin drip Code status: full code * Charges/Coding Visit Charges Inpatient E&M: 85233 Subs Hosp L2
[2023-12-12 09:42] LABS: Partial Thromboplast Time 43.1 Seconds (24.1-36.2)
--- NOTE | 2023-12-12 10:31 | CASEMGMT ---
Tertiary facilities in-network with patient's insurance: [facility], [facility], [facility], , [facility]
[2023-12-12] MEDS: 0.9% Normal Saline (1000mL) 1,000 ML 75 ML IV (11:21)
[2023-12-12] MEDS: Pantoprazole Sodium 40 MG Tablet PO ×2 (11:22→20:56)
--- NOTE | 2023-12-12 11:22 | CL.D_ITS ---
Patient Name: TERRANCE RODRIGUEZ Study Date: 12/12/2023 Performing: Jong Santiago MD Ht: 68 inches 172.72 cm : 1945 Wt: 132.9 lbs 60.2 kg Age: 78 Gender: male BSA: 1.72 PROCEDURE(S) PERFORMED [id number]-([id number])[facility] CLINICAL PROFILE AND INDICATIONS Indications: ACS <= 24 hrs, NSTEMI, CHF Heart Failure: Newly Diagnosed: Yes CONCLUSIONS Multivessel coronary artery disease as described RECOMMENDATIONS CT surgery consult for possible CABG plus AVR DESCRIPTION OF PROCEDURE The patient arrived to the procedure lab. The risks and benefits of the procedure as well as a full description of our services here and current unavailability of surgical backup were fully explained to the patient and/or their significant other prior to the catheterization. The Timeout was completed, verifying the correct patient and procedure. The patient's procedural site was prepped and draped in the usual fashion. Local anesthetic was given subcutaneously to right radial region with Lidocaine 2%. Using a modified Seldinger technique, arterial access was obtained via the right radial artery, a 6Fr sheath was inserted. Left Coronary Artery selective angiography was performed in multiple views using a 5 Fr. JL3.5 catheter. Right Coronary Artery selective angiography was then performed in multiple views using a 5 Fr. JR 4 catheter.The arterial sheath was pulled and a TR Band was applied for hemostasis w/ 11ml air CORONARY ANGIOGRAPHY DOMINANCE: Right Dominant Collaterals noted from the left to the PDA, RPL and OM. There was dampening of pressure waveform with LM engagement LEFT MAIN: 60% eccentric stenosis LEFT ANTERIOR DESCENDING ARTERY: 30% proximal stenosis, 80% mid stenosis, 90% stenosis at the apex DIAGONAL 1: Proximal - 80 % Stenosis CIRCUMFLEX ARTERY: PROX CIRC: 100 % Stenosis RIGHT CORONARY ARTERY: PROX RCA: 100 % Stenosis COMPLICATIONS No Complications PROCEDURE MEDICATIONS Versed 1 mg IV Fentanyl 50 mcg IV Oxygen: 2 L/min via nasal cannula Heparin drip discontinued 12/12/2023 09:35:22 IV Bolus: .9 NaCl 200 ml total 12/12/2023 10:35:50 SUMMARY OF HEMODYNAMIC DATA Time AIR REST ECG 09:38:40 AO 89/47 (65) SA 10:22:51 AO 98/59 (77) 10:31:09 Signed By Jong Santiago MD On 12/12/2023 11:23:53 Jong Santiago MD
[2023-12-12] MEDS: Tamsulosin HCl 0.4 MG Capsule PO (16:36)
--- NOTE | 2023-12-12 18:02 | DS.PCM_ITS ---
Providers Date of Admission: 12/10/23 Date of Discharge: 12/12/23 Primary Care Physician: Dr. Rex Lizama MD Consultations 12/10/23 10:27 Consult: Cardiology Routine Consulting Provider: Yesenia Santiago Reason for Consult: nonstemi EMERGENT Consult: No MD Notified: Yes Date Notified: 12/10/23 Time Notified: 10:28 Method of Notification: Text Reason For Visit: NONSTEMI Diagnosis Discharge Diagnosis (1) Non-ST elevated myocardial infarction (non-STEMI): Status: Acute Code(s): I21.4 - Non-ST elevation (NSTEMI) myocardial infarction Plan #Nonstemi * admitted with a complaint of shortness of breath as well as left arm pain * initial troponin was 469, and trended upwards to 949 and to a peak of 3490. * EKG showed no acute ST changes and showed chronic bifascicular block * admit to PCU * on heparin drip, aspirin and plavix, as well as high intensity statin * cardiology on board; for cardiac cath tomorrow * 2D echo showed EF of 40 to 45% with mild hypokinesis of the anterior and lateral maloney and moderate aortic stenosis * * #COPD: CXR showed evidence of acute bronchitis. Breathing treatment with bronchodilators. hold off on steroids for now as he is not in COPD exacerbation. On room air. #Elevated creatinine: Creatinine is 1.3 today. Stable. Will monitor #Hyperlipidemia: on statin #Peripheral artery disease * s/p stents in lower abdominal aorta and lower extremities * on pletal and statin * pletal held as he is on plavix now * #BPH: on flomax DVT prophylaxis: on heparin drip Code status: full code * Medications at Discharge Home Medications albuterol sulfate 90 mcg/actuation aerosol inhaler 2 puff inhalation Q4H PRN PRN shortness of breath or wheezing 12/10/23 aspirin 81 mg capsule 81 mg PO DAILY heart disease 12/10/23 cilostazol 100 mg tablet 100 mg PO BID 12/10/23 rosuvastatin 10 mg tablet 10 mg PO DAILY 12/10/23 tamsulosin 0.4 mg capsule 0.4 mg PO DAILY 12/10/23 Hospital Course Operations None Procedures 2-D Echocardiogram and Cardiac catheterization Summary of Care Provided Minutes Spent on Discharge: 55 Hospital Course: TERRANCE RODRIGUEZ, is a 78 M with a PMH as outlined who was admitted via the ED on 12/10/2023 with a complaint of shortness of breath. He was apparently watching tv and said he noted he had shortness of breath which worsened, with associated left arm pain. He said he had been having the shortness of breath for several days, but it was mild. He denied any dizziness, nausea, lightheadedness, dizziness, palpitations or any other symptoms. Review of systems is otherwise negative. He has a history of COPD and continues to smoke. He also has a history of CAD and peripheral vascular disease and had stents inserted in his lower aorta and lower extremities. Vitals in the ED were temp of 97.7F, NV of 110, BP of 105/79, RR of 32 and oxygen sats of 94% on room air. CBC showed hemoglobin of 12.6 with WBC of 15 and platelets of 204. INR was 1.1. Chemistry was significant for creatinine of 1.44, sodium of 138 and potassium of 3.6. Initial troponin was 479 and trended upwards to 969. EKG showed no acute ST changes and showed bifascicular block. CXR showed posterior right lower lobe atelectasis or consolidation and CT chest/abdomen and pelvis done showed no evidence of aortic dissection and showed mild infrarenal abdominal aortic ectasia to 2.1cm, with severe calcified coronary atherosclerosis and evidence of acute on chronic bronchitis/bronchiolitis. He was admitted to be managed for nonstemi. He was started on heparin drip in the ED. cardiology was consulted. He was also started on aspirin and Plavix as well as high intensity statin. 2D echo showed EF of 40 to 45% with mild hypokinesis of the anterior and lateral maloney as well as moderate to aortic stenosis. He had cardiac cath on 12/12/2023 which showed multivessel coronary artery disease. He was recommended to have CT surgery consult. He was accepted at [facility] and was transferred on 12/12/2023 for evaluation for CABG. Patient was seen and examined prior to discharge. He had no complaints. His son was by his bedside. Review of systems otherwise negative. Labs and vitals reviewed. Home medication reviewed and reconciled. Physical Exam Const alert, oriented x3, no apparent distress and average body habitus General Appearance: cooperative, comfortable and well kempt Orientation / Consciousness: awake Exam Limitations: no limitations HEENT normocephalic, head/scalp atraumatic, hearing grossly normal bilaterally, moist oral mucous membranes and oropharynx normal Mouth: oral and palatal mucosa normal Eyes PERRL, EOMs intact bilaterally and conjunctivae normal Neck no lymphadenopathy, supple and no JVD Resp normal respiratory effort, normal air movement, no retractions, no use of accessory muscles and clear to auscultation bilaterally Cardio regular rate, regular rhythm, S1 normal heart sound, S2 normal heart sound and no murmurs GI normal to inspection, nondistended, normoactive bowel sounds, soft to palpation and non-tender Extremity normal to inspection, full ROM, normal capillary refill and no clubbing, cyanosis or edema Skin no rashes or lesions noted General Skin Exam: no breakdown Neuro oriented x3, CN's II-XII intact bilaterally, moves all extremities and no focal motor deficits Sensorium / Orientation: awake and alert Motor Exam: strength 5/5 throughout Psych thought process normal, cooperative and affect normal Appearance: appropriate Weight / BMI Weight Weight: 132 lb 11.492 oz Body Mass Index (BMI) 20.2 ABG / Lab / Microbiology Data 12/12/23 03:55 12/12/23 03:55 Laboratory: Laboratory Results - last 24 hr 12/11/23 21:30: APTT 98.6 H* 12/12/23 03:55: WBC 12.7 H, RBC 4.37 L, Hgb 13.3, Hct 39.8 L, MCV 91.1, MCH 30.4, MCHC 33.4, RDW Std Deviation 48.0 H, RDW Coeff of Mike 14.3, Plt Count 206, MPV 11.7, Immature Gran % (Auto) 0.300, Neut % (Auto) 64.8, Lymph % (Auto) 24.5, [place] % (Auto) 7.3, Eos % (Auto) 2.4, Baso % (Auto) 0.7, Absolute Neuts (auto) 8.2 H, Absolute Lymphs (auto) 3.11, Nucleated RBC % 0, APTT 61.0 H, Sodium 136, Potassium 3.6, Chloride 101, Carbon Dioxide 30.0, Anion Gap 5, BUN 26 H, Creatinine 1.30, Estim Creat Clear Calc 40.52, Est GFR (MDRD) Af Amer 69, Est GFR (MDRD) Non-Af 57 L, BUN/Creatinine Ratio 20.0, Glucose 100, Calcium 9.1 12/12/23 09:26: APTT 43.1 H D/C Instructions Discharge Diet: Low fat / Low cholesterol Discharge Activity: Return to Normal Activity Weight Bearing Status: Weight bearing as tolerated Call your doctor if you observe: Fever of 101 or Higher, Shortness of breath, Dizziness, Swelling in the ankles, Chest pain and Increased palpitations (irregular heartbeat) Meaningful Use Info Meaningful Use Meaningful Use Diagnoses (Choose all that apply): AMI AMI/Post PCI/Angioplasty Aspirin given w/in 24hrs of arrival?: Yes ASA at discharge?: Yes Antiplatelet Therapy at Discharge:: No Reason Antiplatelet Therapy not ordered:: transferred Statins at discharge?: No Reason statins not ordered:: Drug Interaction (transferred) Colten/ARB at discharge?: No Reason Colten/ARB not ordered:: Allergy (transferred) Beta Eris at discharge?: No Reason Beta Eris not ordered:: Allergy (transferred) Done w/ Acute DE measure.: Yes Documented LVEF (%): 40 Ischemic Stroke Statin Dosing Therapy Reference: STATIN DOSE THERAPY REFERENCE: * Patients > 75 years receive moderate or high dose statin therapy. * Patients 75 years or YOUNGER should receive HIGH intensity statin dose unless contraindicated. You will be required to document reason for non-treatment if statin daily dose does not meet guidelines. HIGH DOSE STATIN THERAPY DAILY Atorvastatin > than or = to 40 mg Rosuvastatin > than or = to 20 mg Amlodipine + Atorvastatin > than or = to 2.5/40 mg Ezetimibe + Simvastatin 10/80 mg Simvastatin 80mg Discharge Plan Admission Admit Date/Time: 12/10/23 07:41 Primary Reason for Your Visit: nonstemi Attending Provider: Mildred Weaver Primary Care Provider: Rex Lizama Consulting Providers: Yesenia Santiago Instructions Patient Instructions: Heart Attack Angina Sx, Heart Attack Dc, Heart Attack Meds Discharge Orders/Prescriptions Prescriptions: No Action albuterol sulfate 90 mcg/actuation HFA aerosol inhaler 2 puff INHALATION Q4H PRN PRN (Reason: shortness of breath or wheezing) cilostazol 100 mg tablet 100 mg PO BID tamsulosin 0.4 mg capsule 0.4 mg PO DAILY rosuvastatin 10 mg tablet 10 mg PO DAILY aspirin 81 mg capsule 81 mg PO DAILY Referrals / Follow Up: Rex Lizama MD [Primary Care Provider] - Disposition Disposition (needs filled in before D/C Order can be placed): Acute Care Hospital Charges/Coding Visit Charges Inpatient E&M: 85360 Disch Hosp >30min
[2023-12-12] MEDS: Atorvastatin Calcium 40 MG Tablet PO (20:56)
[2023-12-12] MEDS: Carvedilol 3.125 MG TABLET PO (20:56)
== END 2023-12-12 21:15 | disposition short-term general hospital (02) | DRG 280 ==
LOC: ED 07:41 → PCU 07:58
PROVIDERS: Hospitalist; Admitting Provider Student in an Organized Health Care Education/Training Program; Emergency Provider Emergency Medicine; PCP Family Medicine; Visit Provider Student in an Organized Health Care Education/Training Program
DX: I21.4 Non-ST elevation (NSTEMI) myocardial infarction (principal); I50.31 Acute diastolic (congestive) heart failure; I45.2 Bifascicular block; J44.0 Chronic obstructive pulmonary disease with (acute) lower respiratory infection; I73.9 Peripheral vascular disease, unspecified; I11.0 Hypertensive heart disease with heart failure; I35.0 Nonrheumatic aortic (valve) stenosis; I25.10 Atherosclerotic heart disease of native coronary artery without angina pectoris; E78.5 Hyperlipidemia, unspecified; J20.9 Acute bronchitis, unspecified; F17.210 Nicotine dependence, cigarettes, uncomplicated; N40.0 Benign prostatic hyperplasia without lower urinary tract symptoms; Z95.820 Peripheral vascular angioplasty status with implants and grafts
CPT/HCPCS: 36415; 71046; 71275; 74174; 80048; 83735; 84484; 85025; 85610; 85730; 93005; 93306; 93454; 94640; 99152; 99153; 99284; C1769; Q9967; A4216; C1894; J1938

== ENCOUNTER 2024-01-24 22:37 | Inpatient (IN) | payer MEDICARE, SELFPAY ==
[2024-01-24] VITALS (7 sets, daily range): BP systolic 119–179; BP diastolic 53–98; PULSE 92–132; RESP 12–42; TEMP 36.2–36.3; O2SAT 94–100; BMI 21.1
--- NOTE | 2024-01-24 22:41 | EKG12_ITS ---
Test Reason : SOB Blood Pressure : / mmHG Vent. Rate : 123 BPM Atrial Rate : 123 BPM P-R Int : 144 ms QRS Dur : 130 ms QT Int : 348 ms P-R-T Axes : 059 100 022 degrees QTc Int : 498 ms Sinus tachycardia with occasional Premature ventricular complexes Possible Left atrial enlargement Right bundle branch block Possible Inferior infarct (cited on or before 10-DEC-2023) Abnormal ECG Confirmed by GERMÁN SLAUGHTER, OLVIN ([id number]), editorial project manager KENYA SLAUGHTER ([id number]) on 01/25/2024 1:23:47 PM Referred By: Confirmed By:OLVIN DUNLAP MD
--- NOTE | 2024-01-24 22:45 | EDS_ITS ---
HPI History of Present Illness Chief Complaint: Shortness of Breath Informant: patient Onset/Context/Timing Onset: Today Context: gradual Timing: Continuous Quality: Positive for Dyspnea on exertion and Wheezing Worsened by: Exertion Relieved by: Oxygen and Albuterol Associated Symptoms cough and white sputum; Negative for rhinorrhea, ear pain, fever, chills, yellow sputum or green sputum Chest Pain: Positive for None Narrative Narrative: Patient presents with shortness of breath that has been getting worse throughout the day today. Patient states he became acutely worse over the past few hours. Patient called EMS. EMS administered Solu-Medrol and albuterol. EMS placed patient on BiPAP. Patient states that his breathing is starting to improve but he still feels very short of breath. Patient mitts to a cough with some white sputum. Patient denies any fevers or chills. Patient denies any chest pain. Patient denies any nausea or vomiting. Patient denies any pain or swelling in his legs. PFSH PFS Medical History Hyperlipidemia Hypertension COPD (chronic obstructive pulmonary disease) Non-ST elevated myocardial infarction (non-STEMI) Home Medications ?Medication ?Instructions ?Recorded ?Last Taken ?Type albuterol sulfate 90 mcg/actuation 2 puff inhalation Q4H PRN PRN 12/10/23 12/09/23 History aerosol inhaler shortness of breath or wheezing aspirin 81 mg capsule 81 mg PO DAILY heart disease 12/10/23 Unknown History cilostazol 100 mg tablet 100 mg PO BID 12/10/23 12/09/23 History rosuvastatin 10 mg tablet 10 mg PO DAILY 12/10/23 12/09/23 History tamsulosin 0.4 mg capsule 0.4 mg PO DAILY 12/10/23 12/09/23 History Allergy/AdvReac Type Severity Reaction Status Date / Time pseudoephedrine Allergy Mild Hives Verified 12/10/23 05:38 Family History (Updated 12/10/23 @ 09:23 by Kayla Hwang) Son Heart disease Surgical History H/O endovascular stent graft for abdominal aortic aneurysm Social History Smoking Status: Former smoker Tobacco: How many years used: 57 ROS ROS ED Constitutional Constitutional ED: Denies chills or fever(s) ENT ENT ED: Denies rhinorrhea or sore throat Cardiovascular Cardiovascular: Denies chest pain Respiratory/Chest Respiratory/Chest: Reports cough, dyspnea and dyspnea on exertion Gastrointestinal Gastrointestinal: Denies nausea or vomiting Musculoskeletal Musculoskeletal: Denies back pain or neck pain Neurologic Neurologic: Denies headache(s) or weakness EXAM Physical Exam Const Vital Signs: 01/24/24 22:37 01/24/24 22:37 01/24/24 22:41 Temperature 97.1 F L Temperature Source Temporal Pulse Rate 132 H Respiratory Rate 42 H Respiratory Effort Short of Breath Labored Accessory Muscle Use Respiratory Depth Shallow Respiratory Pattern Tachypnea Blood Pressure 179/98 H Blood Pressure Mean 125 Pulse Ox 95 Oxygen Delivery Method Bi-pap Bi-pap Bi-pap Fraction of Inspired Oxygen (FIO2) 01/24/24 22:44 01/24/24 22:50 01/24/24 23:00 Temperature 97.4 F L Temperature Source Temporal Pulse Rate 114 H 115 H 120 H Respiratory Rate 35 H 37 H 38 H Respiratory Effort Respiratory Depth Respiratory Pattern Blood Pressure 179/98 H Blood Pressure Mean 125 Pulse Ox 99 100 Oxygen Delivery Method Bi-pap Fraction of Inspired Oxygen (FIO2) 45 01/24/24 23:00 01/24/24 23:25 01/24/24 23:30 Temperature Temperature Source Pulse Rate 99 96 93 Respiratory Rate 36 H 27 H 32 H Respiratory Effort Respiratory Depth Respiratory Pattern Blood Pressure 141/83 H 123/91 H Blood Pressure Mean 102 101 Pulse Ox 95 97 94 Oxygen Delivery Method Fraction of Inspired Oxygen (FIO2) 35 01/24/24 23:45 01/25/24 00:00 01/25/24 00:00 Temperature Temperature Source Pulse Rate 92 97 Respiratory Rate 31 H 18 Respiratory Effort Respiratory Depth Respiratory Pattern Blood Pressure 119/53 L 110/53 L 110/54 L Blood Pressure Mean 68 72 68 Pulse Ox 97 97 Oxygen Delivery Method Fraction of Inspired Oxygen (FIO2) 01/25/24 00:15 01/25/24 00:21 01/25/24 00:30 Temperature Temperature Source Pulse Rate 91 88 88 Respiratory Rate 26 H 27 H 18 Respiratory Effort Respiratory Depth Respiratory Pattern Blood Pressure 110/71 101/59 L Blood Pressure Mean 83 69 Pulse Ox 97 98 99 Oxygen Delivery Method Fraction of Inspired Oxygen (FIO2) 35 01/25/24 00:45 01/25/24 01:00 01/25/24 01:15 Temperature Temperature Source Pulse Rate 86 87 76 Respiratory Rate 18 24 H 20 H Respiratory Effort Respiratory Depth Respiratory Pattern Blood Pressure 107/55 L 105/70 104/65 Blood Pressure Mean 72 78 76 Pulse Ox 98 99 100 Oxygen Delivery Method Fraction of Inspired Oxygen (FIO2) 01/25/24 01:30 Temperature Temperature Source Pulse Rate 80 Respiratory Rate 24 H Respiratory Effort Respiratory Depth Respiratory Pattern Blood Pressure 97/72 Blood Pressure Mean 80 Pulse Ox 97 Oxygen Delivery Method Fraction of Inspired Oxygen (FIO2) Positive well nourished and well developed General Appearance ED: well developed HEENT Reports moist mucous membranes Neck supple and no meningeal signs Resp Auscultation: wheezes throughout and diminished lung sounds diffuse Cardio regular rhythm Rate: tachycardic GI non-tender and non-distended Extremity normal to inspection General Extremety ED: Negative for edema or tenderness General Extremity: Negative for edema Neuro oriented x3, CN's II-XII intact bilaterally and no sensory deficits noted Delilah Coma Scale: document GCS findings Spontaneous Obeys Commands Oriented 15 Sensorium / Orientation: alert Motor Exam: strength 5/5 throughout Psych Mood & Affect: anxious Sepsis Attestation Sepsis Alert: Yes Date exam was performed: 01/24/24 Time exam was performed: 23:00 Possible Source of Sepsis: Pulmonary Sepsis Organ Dysfunction Criteria Present: Acute Respiratory Failure (New need for BiPAP/CPAP or MV) and Lactic Acid > 2 mmol/L MDM MDM MDM Narrative Medical decision making narrative: Differential diagnose includes cardiac dysrhythmia, cardiac ischemia, pneumonia, pneumothorax, COPD exacerbation, pulmonary embolism, and viral illness. EKG will be obtained to assess for cardiac dysrhythmia and cardiac ischemia. Chest x-ray will be obtained to assess for pneumonia, pneumothorax, and COPD exacerbation. CBC will be obtained to assess for leukocytosis and anemia. Basic metabolic profile will be obtained to assess for electrolyte abnormality and renal function. High-sensitivity troponin will be obtained to assess for cardiac ischemia. Serum lactate will be obtained to assess for sepsis. COVID- 19, influenza, and RSV PCR will be obtained to assess for viral illness. D- dimer will be obtained to assess for pulmonary embolism. Lab Data Attestation: I reviewed the patient's lab results. Lab results narrative: CBC was reviewed. There is a leukocytosis of 16.8. Platelets were normal. Hemoglobin and hematocrit were normal. Basic metabolic profile was reviewed and was essentially within normal limits. Glucose was mildly elevated at 229. D- dimer was reviewed and was elevated at 1.67. Initial high-sensitivity troponin was reviewed and was normal at 60. Serum lactate was reviewed and was elevated at 3.1. 2-hour repeat high-sensitivity troponin was reviewed and was elevated at 114. BNP was reviewed and was 1228.6. COVID-19 PCR was reviewed and was negative. Influenza PCR was reviewed and was negative for influenza A and influenza B. RSV PCR was reviewed and was negative. Labs: Laboratory Results - last 24 hr 01/24/24 01/25/24 22:53 01:15 WBC 16.8 H RBC 4.56 L Hgb 13.3 Hct 42.2 MCV 92.5 MCH 29.2 MCHC 31.5 L RDW Std Deviation 49.5 H RDW Coeff of Mike 14.4 Plt Count 270 MPV 11.3 Immature Gran % (Auto) 0.500 Neut % (Auto) 50.4 Lymph % (Auto) 40.1 [place] % (Auto) 4.4 Eos % (Auto) 3.4 Baso % (Auto) 1.2 H Absolute Neuts (auto) 8.5 H Absolute Lymphs (auto) 6.72 H Nucleated RBC % 0 Differential Comment SCANNED D-Dimer Quant (PE/DVT) 1.67 H* Sodium 138 Potassium 3.7 Chloride 104 Carbon Dioxide 23.0 Anion Gap 11 BUN 21 H Creatinine 1.25 Estim Creat Clear Calc 44.24 Est GFR (MDRD) Af Amer 72 Est GFR (MDRD) Non-Af 60 BUN/Creatinine Ratio 16.8 Glucose 229 H Lactic Acid 3.1 H* Calcium 9.2 Troponin I High Sens 60 114 H B-Natriuretic Peptide 1228.6 H ABG Data Attestation: I personally reviewed and interpreted this ABG as follows: Interpretation: Arterial blood gas was reviewed. There is a respiratory acidosis with a pH of 7.27 and pCO2 of 47.0. pO2 was 102. Bicarb was 21.4. Oxygen saturation was 97%. This was taken on BiPAP with respiratory rate of 12 and FiO2 of 45. ABG results: ABG 01/24/24 23:05 Specimen Type ART Sample Site R Radial pH 7.27 L Bicarbonate Actual 21.4 L Total CO2 23 Base Excess -6 L O2 Saturation 97 O2 % 45.0 ABG pCO2 47.0 H ABG pO2 102 H Mitch Test Positive Respiration Rate 12 O2 Delivery Device BiPAP Vent Mode Not entered POC PEEP 8 Peak Inspir Pressure 18 Radiography Chest X-Ray - ED: 1 View, Read by ED Physician, Read by Radiologist, Right Infiltrate and Left Infiltrate Diagnostic Testing: Clinical Impression(s) from Imaging Studies Chest X-Ray 01/24/24 23:01 IMPRESSION: Bilateral infiltrates and small pleural effusions likely edema. Electronically Signed: Jeanne Lopez MD at 23:39 EDT , Chest CTA 01/24/24 23:35 IMPRESSION: 1. No evidence of pulmonary emboli. 2. Findings consistent with pulmonary edema with small to moderate bilateral pleural effusions, increased compared to the prior study. Cannot exclude superimposed pneumonia especially in the lower lobes. 3. Underlying emphysematous changes. The presence of pulmonary emphysema on CT scan is an independent risk factor for lung cancer. Consider low dose lung cancer screening in the future. This study serves as a baseline. 4. Mediastinal and hilar adenopathy may be reactive, and not significantly changed. Follow-up suggested. Electronically Signed: Jeanne Lopez MD at 1:33 EDT , Portable chest x-ray was obtained. There is 1 view. On my independent interpretation, there is small to moderate bilateral pleural effusions. There is bilateral infiltrates. Bony thorax is normal. There is no cardiomegaly noted. Radiologist also interpreted the x-rays and agrees. Because of the elevated D-dimer, CTA of the chest was obtained. There is no evidence of pulmonary emboli. There is findings consistent with pulmonary edema with small to moderate bilateral pleural effusions. Cannot exclude superimposed pneumonia in the lower lobes. There is underlying emphysematous changes. There is mediastinal and hilar adenopathy. This was interpreted by the radiologist and was also independently reviewed by myself. EKG Initial EKG: Attestation: I personally reviewed and interpreted this EKG as follows: Interpretation: Sinus Tachycardia (123), RBBB and Non-Specific ST Changes Comments: EKG was obtained. On my independent interpretation, it showed sinus tachycardia with occasional PVCs with a rate of 123. MT interval was normal at 144 ms. QRS interval was slightly prolonged at 130 ms. QTc interval was borderline at 498 ms. [place] was normal. There are nonspecific ST-T wave changes noted. Prior EKG tracings: available for review Prior: Unchanged (12/12/2023) Management Discussion w/another healthcare provider: Hospitalist Treatment and Re-Evaluation :: Patient was given a DuoNeb aerosol here. Patient was given albuterol aerosols after that. Patient was placed on BiPAP. Patient was started on Rocephin and Zithromax. When the repeat troponin came back mildly elevated, patient was given aspirin. Patient was also given Lasix. Patient was advised of his findings. Patient was advised of the need for hospitalization. Patient is agreeable with this. Case was discussed with the hospitalist. He will admit the patient to ICU. Patient understood and was agreeable with the plan. All questions were answered. Critical Care Time Critical Care Time: Yes Critical care time (excluding procedures): 30-74 minutes (37), Including time spent:, Discussing w/Patient &/or Family/Admissions Manager Rn, Discussing w/Consultants, Arranging Admission or Transfer and Performing Direct Patient Care at Bedside Discharge Plan Dx/Rx/DC Orders Clinical Impression: Pulmonary edema, COPD (chronic obstructive pulmonary disease), Acute respiratory acidosis, Elevated troponin, Leukocytosis, Lactic acidosis, Sepsis Disposition Disposition: Acute Care [facility]
[2024-01-24] MEDS: Ipratropium/Albuterol Sulfate 3 ML AMPUL.NEB INHALATION (22:49)
[2024-01-24] MEDS: Albuterol 2.5 MG/3 ML VIAL.NEB. INHALATION ×2 (22:49)
--- NOTE | 2024-01-24 23:01 | RAD_ITS ---
INDICATION: DYSPNEA EXAMINATION/TECHNIQUE: X-RAY - XR Chest 1 View AP portable.10:58 PM COMPARISON: 12/10/2023 FINDINGS: LINES/DEVICES: None. LUNGS: Mixed interstitial and alveolar infiltrates bilaterally increased compared to the prior study. Small bilateral pleural effusions increased. No consolidation. No pneumothorax. MEDIASTINUM: Aorta is atherosclerotic. CARDIAC SILHOUETTE: Not enlarged. BONES AND SOFT TISSUES: No acute abnormalities. RAD/Chest 1 View (Portable) IMPRESSION: Bilateral infiltrates and small pleural effusions likely edema. Electronically Signed: Jeanne Lopez MD at 23:39 EDT ,
[2024-01-24 23:06] LABS: Absolute Lymphocyte Count 6.72 X10^3/uL (0.83-4.51); Absolute Neutrophil Count 8.5 X10^3/uL (2.0-7.7); Basophil% 1.2 % (0-1); Eosinophil# 0.57 X10^3/uL; Eosinophils% 3.4 % (0-5); Hematocrit 42.2 % (40-54); Hemoglobin 13.3 g/dL (13.0-16.5); Lymphocyte # 6.72 X10^3/ul (0.83-4.51); Lymphocyte % 40.1 % (19-41); Mean Corp Hgb Conc 31.5 g/dL (32-36); Mean Corpuscular Hgb 29.2 pg (27.0-32.0); Mean Corpuscular Volume 92.5 fL (80-94); Mean Platelet Vol. 11.3 fl (6.2-12.0); Monocyte# 0.74 X10^3/uL; Monocyte% 4.4 % (0-10); NRBC Flagged by Analyzer 0 % (0-5); Neutrophil # 8.45 X10^3/uL (2.7-7.7); Neutrophil % 50.4 % (47-70); POSITIVE DIFFERENTIAL YES; Platelet Count 270 K/mm3 (150-450); RBC Distribution Width CV 14.4 % (11.6-14.6); RBC Distribution Width SD 49.5 fl (35.1-43.9); Red Blood Count 4.56 M/mm3 (4.6-6.2); White Blood Count 16.8 K/mm3 (4.4-11.0)
[2024-01-24 23:09] LABS: Allen Test Positive; Base Excess -6 mmol/L (-2 to +2); Bicarbonate 21.4 mmol/L (22-26); Blood Gas Specimen Type ART; Mode Not entered; O2 Delivery Device BiPAP; PEEP 8; PIP 18; PO2 102 mmHG (75-100); RR 12; SITE R Radial; SO2 97 % (95-99); Total Carbon Dioxide 23 mmol/L; pH 7.27 (7.35-7.45)
[2024-01-24 23:10] LABS: Differential Indicated SCAN CRITERIA MET
[2024-01-24 23:30] LABS: Anion Gap 11 (5-15); BUN 21 mg/dL (7-18); BUN/Creat Ratio 16.8 RATIO (10-20); Calcium,Total 9.2 mg/dL (8.5-10.1); Chloride 104 mmol/L (98-107); Creatinine, Serum 1.25 mg/dL (0.70-1.30); EST Glomerular Filtration Rate 60 mL/min (>60); Est Glom Filt Rate - Afr Amer 72 mL/min (>60); Estimated Creatinine Clearance 44.24 ml/min; Glucose 229 mg/dL (74-106); Potassium 3.7 mmol/L (3.5-5.1); Sodium Level 138 mmol/L (136-145); Troponin-I HS 60 pg/mL (3.0-78.0); Troponin-I HS (w/2H Reflex) 60 pg/mL (3.0-78.0)
--- NOTE | 2024-01-24 23:35 | CT_ITS ---
STUDY: CTA CHEST REASON FOR EXAM: Male, 78 years old. HYPOXIA RADIATION DOSAGE (If Supplied By Facility): CTDIvol = ( 17.61 ) mGy, DLP = ( 526.45 ) mGycm TECHNIQUE: The examination was performed with the intravenous administration of IV 100mL Isovue-370. Post-processing of the angiographic images was performed, with multiplanar reformation and 3D reconstruction. The protocol utilizes one or more of the following dose reduction techniques: automated exposure control, adjustment of mA and/or kV according to patient size,and/or use of iterative reconstruction technique. COMPARISON: CT chest 12/10/2023 FINDINGS: LUNGS: Hazy groundglass opacities throughout the lungs. More focal consolidation or atelectasis in the lower lobes. Mild septal thickening. Findings are increased compared to the prior. Underlying emphysematous changes. PLEURA: Small to moderate bilateral pleural effusions, greater on the left, increased compared to prior. No pneumothorax. PULMONARY VESSELS: No pulmonary emboli identified. MEDIASTINUM: Several mildly enlarged lymph nodes in the mediastinum and hilar regions not significantly changed. HEART: Not enlarged. Coronary artery calcifications are noted. AORTA/GREAT VESSELS: Thoracic aorta is normal caliber. No aneurysm or dissection. UPPER ABDOMEN: No acute findings. BONES/SOFT TISSUES: No acute findings. OTHER: None. CT/CTA Chest W/WO Contrast IMPRESSION: 1. No evidence of pulmonary emboli. 2. Findings consistent with pulmonary edema with small to moderate bilateral pleural effusions, increased compared to the prior study. Cannot exclude superimposed pneumonia especially in the lower lobes. 3. Underlying emphysematous changes. The presence of pulmonary emphysema on CT scan is an independent risk factor for lung cancer. Consider low dose lung cancer screening in the future. This study serves as a baseline. 4. Mediastinal and hilar adenopathy may be reactive, and not significantly changed. Follow-up suggested. Electronically Signed: Jeanne Lopez MD at 1:33 EDT ,
[2024-01-24 23:47] LABS: Lactic Acid 3.1 mmol/L (0.4-1.9)
[2024-01-24 23:51] LABS: D-Dimer Quantitative (DVT/PE) 1.67 FEU/ug/m (0.27-0.49)
[2024-01-25] VITALS (33 sets, daily range): BP systolic 97–156; BP diastolic 53–85; PULSE 66–128; RESP 12–35; TEMP 36.2–36.7; O2SAT 91–100; BMI 20.2
[2024-01-25 00:41] LABS: Differential Comment SCANNED
[2024-01-25 01:02] LABS: Reflex Troponin-HS? (from REC) Y
[2024-01-25 01:45] LABS: Troponin-I HS 114 pg/mL (3.0-78.0)
[2024-01-25 01:50] LABS: BNP,B-Type NATRIURETIC PEPTIDE 1228.6 pg/mL (0-100)
[2024-01-25] MEDS: Ceftriaxone 2 GM in 0.9% Normal Saline (50mL MB+) 50 ML IV (02:06)
--- NOTE | 2024-01-25 02:19 | HP.PCM.HOS_ITS ---
[facility] - General General Date of Admission: 01/25/24 Date of Service: 01/25/24 Chief Complaint: SOB. [facility] Narrative TERRANCE RUSSELL, is a 78 M with a past medical history of essential hypertension, hyperlipidemia, history of tobacco abuse; with subsequent COPD, CAD; s/p NSTEMI, Chronic Systolic CHF; with reduced LVEF ~45% (11/2023), history of AAA; s/p endovascular stent graft, BPH and OA who presents to [facility] ER complaining of SOB. Mr. Russell reports his symptoms began approximately one day prior to admission with the gradual-onset of BRYAN that progressed to SOB at rest with wheezing. He also admits to cough productive of whitish sputum. He states his symptoms have improved after he called EMS who treated him with supplemental oxygen and albuterol. He denies associated fever, chills, nausea, vomiting, LE edema or chest pain. In the ER he was diagnosed with Sepsis due to suspected Pneumonia on CTA of chest with Leukocytosis of 16.8K and Lactic Acidosis of 3.1 mmol/L present on admission complicated by clinical evidence of AE COPD along with AE of Chronic Systolic CHF; with reduced LVEF ~45% evidenced by an elevated BNP of 1,228.6 pg/mL present on admission with elevated second troponin of 114 pg/mL resulting in Acute Hypoxic and Hypercapnic Respiratory Failure with Acute Respiratory Acidosis; on BiPAP and he was then admitted to the ICU for ongoing care for a stay that is expected to extend beyond 2 midnights. [facility] Medical History Elevated troponin Hyperlipidemia Hypertension COPD (chronic obstructive pulmonary disease) Non-ST elevated myocardial infarction (non-STEMI) Home Medications ?Medication ?Instructions ?Recorded ?Last Taken ?Type albuterol sulfate 90 mcg/actuation 2 puff inhalation Q4H PRN PRN 12/10/23 12/09/23 History aerosol inhaler shortness of breath or wheezing aspirin 81 mg capsule 81 mg PO DAILY heart disease 12/10/23 Unknown History cilostazol 100 mg tablet 100 mg PO BID 12/10/23 12/09/23 History rosuvastatin 10 mg tablet 10 mg PO DAILY 12/10/23 12/09/23 History tamsulosin 0.4 mg capsule 0.4 mg PO DAILY 12/10/23 12/09/23 History Allergy/AdvReac Type Severity Reaction Status Date / Time pseudoephedrine Allergy Mild Hives Verified 12/10/23 05:38 Family History Son Heart disease Surgical History H/O endovascular stent graft for abdominal aortic aneurysm Social History Smoking Status: Former smoker Tobacco: How many years used: 57 ROS ROS Narrative Review of Systems: Constitutional: Patient denies fever or chills. Eyes: Patient denies changes in vision or discharge from eyes. ENT: Patient denies runny nose, sore throat or ear pain. Resp: Patient admits to BRYAN that progressed to SOB at rest with wheezing and cough productive of whitish sputum. CV: Patient denies chest pain, palpitations or heart racing. GI: Patient denies abdominal pain, nausea, vomiting, diarrhea or constipation. : Patient denies dysuria or hematuria. MSK: Patient denies neck pain or back pain. Skin: Patient denies rash, abscess or jaundice. Psych: Patient denies symptoms of uncontrolled depression or anxiety. Neuro: Patient denies headache, paresthesias or focal neurologic deficits. Allergy: Patient denies lip swelling, tongue swelling or urticaria. Hematology: Patient denies easy bleeding or easy bruisability. Endocrinology: Patient denies polyuria, polydipsia and polyphagia. 14 point ROS otherwise negative except for positives noted above in HPI. Vital Signs Vital Signs Vital Signs: 01/24/24 22:37 01/24/24 22:37 01/24/24 22:41 Temperature 97.1 F L Temperature Source Temporal Pulse Rate 132 H Respiratory Rate 42 H Respiratory Effort Short of Breath Labored Accessory Muscle Use Respiratory Depth Shallow Respiratory Pattern Tachypnea Blood Pressure 179/98 H Blood Pressure Mean 125 Pulse Ox 95 Oxygen Delivery Method Bi-pap Bi-pap Bi-pap Fraction of Inspired Oxygen (FIO2) 01/24/24 22:44 01/24/24 22:50 01/24/24 23:00 Temperature 97.4 F L Temperature Source Temporal Pulse Rate 114 H 115 H 120 H Respiratory Rate 35 H 37 H 38 H Respiratory Effort Respiratory Depth Respiratory Pattern Blood Pressure 179/98 H Blood Pressure Mean 125 Pulse Ox 99 100 Oxygen Delivery Method Bi-pap Fraction of Inspired Oxygen (FIO2) 45 01/24/24 23:00 01/24/24 23:25 01/24/24 23:30 Temperature Temperature Source Pulse Rate 99 96 93 Respiratory Rate 36 H 27 H 32 H Respiratory Effort Respiratory Depth Respiratory Pattern Blood Pressure 141/83 H 123/91 H Blood Pressure Mean 102 101 Pulse Ox 95 97 94 Oxygen Delivery Method Fraction of Inspired Oxygen (FIO2) 35 01/24/24 23:45 01/25/24 00:00 01/25/24 00:00 Temperature Temperature Source Pulse Rate 92 97 Respiratory Rate 31 H 18 Respiratory Effort Respiratory Depth Respiratory Pattern Blood Pressure 119/53 L 110/53 L 110/54 L Blood Pressure Mean 68 72 68 Pulse Ox 97 97 Oxygen Delivery Method Fraction of Inspired Oxygen (FIO2) 01/25/24 00:15 01/25/24 00:21 01/25/24 00:30 Temperature Temperature Source Pulse Rate 91 88 88 Respiratory Rate 26 H 27 H 18 Respiratory Effort Respiratory Depth Respiratory Pattern Blood Pressure 110/71 101/59 L Blood Pressure Mean 83 69 Pulse Ox 97 98 99 Oxygen Delivery Method Fraction of Inspired Oxygen (FIO2) 35 01/25/24 00:45 01/25/24 01:00 01/25/24 01:15 Temperature Temperature Source Pulse Rate 86 87 76 Respiratory Rate 18 24 H 20 H Respiratory Effort Respiratory Depth Respiratory Pattern Blood Pressure 107/55 L 105/70 104/65 Blood Pressure Mean 72 78 76 Pulse Ox 98 99 100 Oxygen Delivery Method Fraction of Inspired Oxygen (FIO2) 01/25/24 01:30 Temperature Temperature Source Pulse Rate 80 Respiratory Rate 24 H Respiratory Effort Respiratory Depth Respiratory Pattern Blood Pressure 97/72 Blood Pressure Mean 80 Pulse Ox 97 Oxygen Delivery Method Fraction of Inspired Oxygen (FIO2) Weight Weight: 139 lb 5.314 oz Body Mass Index (BMI) 21.1 Physical Exam Const alert, oriented x3 and average body habitus Constitutional Narrative: Patient appears more comfortable on BiPAP. General Appearance: cooperative HEENT normocephalic, head/scalp atraumatic, hearing grossly normal bilaterally and moist oral mucous membranes Eyes PERRL and EOMs intact bilaterally Neck no lymphadenopathy and supple Resp Resp Narrative: Diminished breath sounds throughout with diffuse wheezing. Auscultation: wheezes Cardio regular rhythm Cardio Narrative: Tachycardia noted. GI normal to inspection, nondistended, normoactive bowel sounds, soft to palpation, non-tender and non-distended Extremity normal to inspection, full ROM and no clubbing, cyanosis or edema Skin Skin Narrative: Patient has no evidence of rash, abscess or jaundice. Neuro oriented x3, CN's II-XII intact bilaterally, moves all extremities and no focal motor deficits Sensorium / Orientation: awake, alert, oriented to person, oriented to place and oriented to time Speech: speech normal Psych affect normal Results Medical Records Data Attestation: I reviewed the patient's medical records Lab / Micro Data Attestation: I reviewed the patient's lab results. 01/24/24 22:53 01/24/24 22:53 Labs: Laboratory Results - last 24 hr 01/24/24 22:53: WBC 16.8 H, RBC 4.56 L, Hgb 13.3, Hct 42.2, MCV 92.5, MCH 29.2, MCHC 31.5 L, RDW Std Deviation 49.5 H, RDW Coeff of Mike 14.4, Plt Count 270, MPV 11.3, Immature Gran % (Auto) 0.500, Neut % (Auto) 50.4, Lymph % (Auto) 40.1, [place] % (Auto) 4.4, Eos % (Auto) 3.4, Baso % (Auto) 1.2 H, Absolute Neuts (auto) 8.5 H, Absolute Lymphs (auto) 6.72 H, Nucleated RBC % 0, Differential Comment SCANNED, D-Dimer Quant (PE/DVT) 1.67 H*, Sodium 138, Potassium 3.7, Chloride 104, Carbon Dioxide 23.0, Anion Gap 11, BUN 21 H, Creatinine 1.25, Estim Creat Clear Calc 44.24, Est GFR (MDRD) Af Amer 72, Est GFR (MDRD) Non-Af 60, BUN/Creatinine Ratio 16.8, Glucose 229 H, Lactic Acid 3.1 H*, Calcium 9.2, Troponin I High Sens 60, B-Natriuretic Peptide 1228.6 H 01/25/24 01:15: Troponin I High Sens 114 H Micro: Microbiology 01/24/24 22:53 Mucosa - Nose SARS-CoV-2, Influenza & RSV (PCR) - Final ABG Data ABG results: ABG 01/24/24 23:05 Specimen Type ART Sample Site R Radial pH 7.27 L Bicarbonate Actual 21.4 L Total CO2 23 Base Excess -6 L O2 Saturation 97 O2 % 45.0 ABG pCO2 47.0 H ABG pO2 102 H Mitch Test Positive Respiration Rate 12 O2 Delivery Device BiPAP Vent Mode Not entered POC PEEP 8 Peak Inspir Pressure 18 Imaging Radiology Impression Chest X-Ray 01/24/24 23:01 IMPRESSION: Bilateral infiltrates and small pleural effusions likely edema. Electronically Signed: Jeanne Lopez MD at 23:39 EDT , Chest CTA 01/24/24 23:35 IMPRESSION: 1. No evidence of pulmonary emboli. 2. Findings consistent with pulmonary edema with small to moderate bilateral pleural effusions, increased compared to the prior study. Cannot exclude superimposed pneumonia especially in the lower lobes. 3. Underlying emphysematous changes. The presence of pulmonary emphysema on CT scan is an independent risk factor for lung cancer. Consider low dose lung cancer screening in the future. This study serves as a baseline. 4. Mediastinal and hilar adenopathy may be reactive, and not significantly changed. Follow-up suggested. Electronically Signed: Jeanne Lopez MD at 1:33 EDT , Assessment & Plan Assessment/Plan (1) Sepsis: QUALIFIERS: Acute respiratory failure type: unspecified Sepsis acute organ dysfunction status: with acute organ dysfunction Sepsis type: s epsis due to unspecified organism Severe sepsis acute organ dysfunction type: a cute respiratory failure Severe sepsis shock status: without septic shock Q ualified Code(s): A41.9 - Sepsis, unspecified organism; R65.20 - Severe sepsis without septic shock; J96.00 - Acute respiratory failure, unspecified whether with hypoxia or hypercapnia (2) Pneumonia: QUALIFIERS: Laterality: bilateral Lung location: unspecified part of lung Pneumonia type: due to unspecified organism Qualified Code(s): J18.9 - Pneumonia, unspecified organism (3) COPD with acute exacerbation: (4) Acute hypoxic on chronic hypercapnic respiratory failure: (5) Leukocytosis: QUALIFIERS: Leukocytosis type: unspecified Qualified Code(s): D 72.829 - Elevated white blood cell count, unspecified (6) Lactic acidosis: (7) Acute respiratory acidosis: (8) Pulmonary edema: QUALIFIERS: Chronicity: acute Qualified Code(s): J81.0 - Acute pulmonary edema (9) Heart failure, systolic, chronic, etiology unknown: (10) Elevated troponin: (11) D-dimer, elevated: (12) Hyperglycemia: PLAN: Plan 1. Sepsis with CT positive for evidence of Pneumonia with Leukocytosis of 16.8K and Lactic Acidosis of 3.1 mmol/L present on admission - Admit to ICU for treatment under the Sepsis protocol. Give empiric IV Zosyn and IV Vancomycin and then await culture & sensitivity data. Check urinary antigens for Streptococcus pneumonia and Legionella. Give Tylenol prn pain or fever. Followup lactate decreased to 2.1 mmol/L after initial round of treatment. 2. AE COPD complicating #1 - Add IV Solumedrol plus scheduled and prn nebulizers. Give Mucinex 600 mg PO BID. 3. AE of Chronic Systolic CHF; with reduced LVEF ~45% evidenced by elevated BNP of 1,228.6 pg/mL present on admission with confirmatory pleural effusions on CT and elevated second troponin of 114 pg/mL likely due to Acute Cardiac Strain compounding #1 & #2 - Patient will need at least a limited fluid bolus to treat the Sepsis outlined in #1 before diuresis can begin. Serialize troponin. 4. Acute Hypoxic and Hypercapnic Respiratory Failure requiring BiPAP attributable to #1 - #3 - Wean BiPAP as tolerated. 5. Elevated d-dimer of 1.67 present on admission adding to the complexity of #1 - #4 - CTA negative for PE done on admission. Check bilateral LE dopplers. Start full-dose Lovenox until study confirmed negative. 6. Hyperglycemia of 229 mg/dL present on admission worrisome for possible underlying DM-2 - Check HgbA1c to confirm suspicion. 7. Essential hypertension - Hold scheduled antihypertensives until infection outlined in #1. 8. Hyperlipidemia - Resume statin. 9. CAD; s/p NSTEMI - Noted. Serialize troponin and continue BASA and statin. 10. History of AAA; s/p endovascular stent graft - Noted. 11. BPH - Stable. 12. OA - Give Tylenol prn. 13. DVT prophylaxis - Patient on full-dose Lovenox for #5. Total time: Approximately 75 minutes. Sepsis Attestation Sepsis Alert: Yes Sepsis Attestation: Agree w/Sepsis Date exam was performed: 01/25/24 Time exam was performed: 03:00 Possible Source of Sepsis: Pulmonary Sepsis Organ Dysfunction Criteria Present: Acute Respiratory Failure (New need for BiPAP/CPAP or MV) and Lactic Acid > 2 mmol/L Fluid Resuscitation Fluid resuscitation indicated?: Yes Fluid Resuscitation ordered: 30 ml/kg fluid bolus ordered Amount of fluid ordered: 1 Reason for lesser fluid bolus:: Concern for fluid overload and Heart failure Sepsis Note Date exam was performed: 01/25/24 Time exam was performed: 06:15 Sepsis Attestation: Sepsis re-evaluation was performed Response to fluids: Fluid responsive hypotension Charges/Coding Visit Charges Inpatient E&M: 15144 Init Hosp L3
--- NOTE | 2024-01-25 02:45 | VDLE_ITS ---
Reason For Study: Elevated D-dimer: 1.67 RIGHT LEFT GSV is normal. GSV is normal. CFV is compressible, spontaneous, phasic, CFV is compressible, spontaneous, phasic, competent and demonstrates normal competent, and demonstrates normal augmentation. augmentation. FV is compressible, spontaneous, phasic, FV is compressible, spontaneous, phasic, competent and demonstrates normal competent and demonstrates normal augmentation. augmentation. POP V is compressible, spontaneous, phasic, POP V is compressible, spontaneous, phasic, competent and demonstrates normal competent and demonstrates normal augmentation. augmentation. T/P Trunk is compressible. T/P Trunk is compressible. PTV is compressible. PTV is compressible. RT PerV is compressible. LT PerV is compressible. Procedure This is a venous duplex using B-mode, color flow and spectral Doppler. Exam performed in department. A preliminary report was called and/or faxed to [facility]. VL/Venous Duplex US - Amrc Extrem Interpretation Summary Deep veins of the bilateral lower extremities are patent and compressible segme ntally. There is no evidence of bilateral lower extremity deep vein thrombosis. The bilateral great saphenous veins appear patent and compressible segmentally. Ordering Physician: Isreal Tovar Referring Physician: Rex Lizama Performed By: Martine Hernandez RVT
[2024-01-25 03:02] LABS: Reflex Lactate? Y
[2024-01-25] MEDS: Azithromycin 500 MG in Dextrose 5%-Water (250mL Bag) 250 ML 250 MG IV (03:14)
[2024-01-25] MEDS: Furosemide 40 MG/4 ML Vial IV ×2 (03:14→19:57)
[2024-01-25] MEDS: Aspirin 81 MG TAB.CHEW 324 MG PO (03:14)
[2024-01-25 03:19] LABS: Allen Test Positive; Base Excess -1 mmol/L (-2 to +2); Bicarbonate 23.4 mmol/L (22-26); Blood Gas Specimen Type ART; Comment 18. 8.; Mode Not entered; O2 Delivery Device BiPAP; PO2 91 mmHG (75-100); SITE R Radial; SO2 97 % (95-99); Total Carbon Dioxide 25 mmol/L; pCO2 36.6 mmHg (35-45); pH 7.41 (7.35-7.45)
[2024-01-25] MEDS: Enoxaparin 60 MG/0.6 ML Syringe SC ×2 (04:05→17:49)
[2024-01-25] MEDS: Vancomycin HCl 1,500 MG in 0.9% Normal Saline (500mL Bag) 500 ML 250 MG IV (04:06)
[2024-01-25] MEDS: 0.9% Normal Saline (1000mL) 1,000 ML 999 ML IV ×2 (04:06→06:17)
[2024-01-25] MEDS: MethylPREDNISolone 125 MG/2 ML Vial IV (04:06)
--- NOTE | 2024-01-25 04:13 | PCM.RX.CS ---
Consult Antibiotic Management Pharmacy has been consulted to manage selected antibiotic: Vancomycin Type of Intervention Type of Consult: New start Suspected Infection Suspected Infection: Sepsis Labs Labs: Sodium 138 mmol/L (136-145) 01/24/24 22:53 Potassium 3.7 mmol/L (3.5-5.1) 01/24/24 22:53 Chloride 104 mmol/L (98-107) 01/24/24 22:53 Carbon Dioxide 23.0 mmol/L (21.0-32.0) 01/24/24 22:53 Anion Gap 11 (5-15) 01/24/24 22:53 BUN 21 mg/dL (7-18) H 01/24/24 22:53 Creatinine 1.25 mg/dL (0.70-1.30) 01/24/24 22:53 Est GFR (MDRD) Af Amer 72 mL/min (>60) 01/24/24 22:53 Est GFR (MDRD) Non-Af 60 mL/min (>60) 01/24/24 22:53 BUN/Creatinine Ratio 16.8 RATIO (10-20) 01/24/24 22:53 Glucose 229 mg/dL (74-106) H 01/24/24 22:53 Microbiology Microbiology: Microbiology 01/24/24 22:53 Mucosa - Nose SARS-CoV-2, Influenza & RSV (PCR) - Final Goal Trough Goal Trough: 15-20 mcg/mL Pharmacy Plan for Drug Dosing Pharmacy Plan for Drug Dosing: NEW START IV VANCOMYCIN Consulting Physician: Dr. Tovar Indication: Sepsis Goal Trough: 15-20 SrCr: 1.25 CrCl: 44.2 Comments: Loading dose 1500mg x1 given @ 04:06 01/25/24 Vancomycin Dose: 500mg Q12H to start at 16:00 01/25/24 Pending Level: Vancomycin trough @ 15:30 01/26/24 Pharmacy Service will continue to monitor and adjust dosing as required. Follow-Up Labs Follow-Up Labs: Trough: Vancomycin (15:30 01/26/24)
[2024-01-25 04:29] LABS: Troponin-I HS 134 pg/mL (3.0-78.0)
[2024-01-25 04:43] LABS: Lactic Acid 2.1 mmol/L (0.4-1.9)
[2024-01-25] MEDS: Piperacil/Tazobactam 3.375 GM in 0.9% Normal Saline (50mL MB+) 50 ML IV ×3 (06:17→21:41)
--- NOTE | 2024-01-25 07:19 | PN.HOSP_ITS ---
Reason for Visit Reason for Visit: Diagnoses Sepsis, unspecified organism (01/25/24) Elevated white blood cell count, unspecified (01/25/24) Acidosis, unspecified (01/25/24) Chronic systolic (congestive) heart failure (01/25/24) Heart failure, unspecified (01/25/24) Pneumonia, unspecified organism (01/25/24) Chronic obstructive pulmonary disease with (acute) exacerbation (01/25/24) Acute pulmonary edema (01/25/24) Chronic pulmonary edema (01/25/24) Acute respiratory failure, unspecified whether with hypoxia or hypercapnia (01/25/24) Acute respiratory failure with hypoxia (01/25/24) Acute respiratory failure with hypercapnia (01/25/24) Chronic respiratory failure with hypercapnia (01/25/24) Severe sepsis without septic shock (01/25/24) Hyperglycemia, unspecified (01/25/24) Other specified abnormal findings of blood chemistry (01/25/24) Subjective Subjective Feeling better. Now back on room air. Objective Data Objective Data Vital Signs: Vital Signs Temp Pulse Resp BP Pulse Ox O2 Del Method O2 Flow Rate 36.3 C L 67 22 H 108/69 99 Nasal Cannula 4 01/25/24 03:49 01/25/24 06:00 01/25/24 03:49 01/25/24 03:49 01/25/24 06:00 01/25/24 06:00 01/25/24 06:00 FiO2 35 01/25/24 00:21 Oxygen Flow Rate (L/min) 4 Oxygen Delivery Method Nasal Cannula Weight: 60.5 kg Body Mass Index (BMI) 20.2 Intake & Output: Intake and Output for Last 24 Hours 01/23/24 01/24/24 01/25/24 23:59 23:59 23:59 Intake Total 1000 / 1000 Balance 1000 / 1000 Lab / Micro Data 01/24/24 22:53 01/24/24 22:53 Labs: Laboratory Results - last 24 hr 01/24/24 22:53: WBC 16.8 H, RBC 4.56 L, Hgb 13.3, Hct 42.2, MCV 92.5, MCH 29.2, MCHC 31.5 L, RDW Std Deviation 49.5 H, RDW Coeff of Mike 14.4, Plt Count 270, MPV 11.3, Immature Gran % (Auto) 0.500, Neut % (Auto) 50.4, Lymph % (Auto) 40.1, [place] % (Auto) 4.4, Eos % (Auto) 3.4, Baso % (Auto) 1.2 H, Absolute Neuts (auto) 8.5 H, Absolute Lymphs (auto) 6.72 H, Nucleated RBC % 0, Differential Comment SCANNED, D-Dimer Quant (PE/DVT) 1.67 H*, Sodium 138, Potassium 3.7, Chloride 104, Carbon Dioxide 23.0, Anion Gap 11, BUN 21 H, Creatinine 1.25, Estim Creat Clear Calc 44.24, Est GFR (MDRD) Af Amer 72, Est GFR (MDRD) Non-Af 60, BUN/Creatinine Ratio 16.8, Glucose 229 H, Lactic Acid 3.1 H*, Calcium 9.2, Troponin I High Sens 60, B-Natriuretic Peptide 1228.6 H 01/25/24 01:15: Troponin I High Sens 114 H 01/25/24 03:55: Lactic Acid 2.1 H*, Troponin I High Sens 134 H*, B-Natriuretic Peptide 1330.0 H Micro: Microbiology 01/24/24 22:53 Mucosa - Nose SARS-CoV-2, Influenza & RSV (PCR) - Final ABG Data ABG results: ABG 01/24/24 01/25/24 23:05 03:15 Specimen Type ART ART Sample Site R Radial R Radial pH 7.27 L 7.41 Bicarbonate Actual 21.4 L 23.4 Total CO2 23 25 Base Excess -6 L -1 O2 Saturation 97 97 O2 % 45.0 35.0 ABG pCO2 47.0 H 36.6 ABG pO2 102 H 91 Mitch Test Positive Positive Respiration Rate 12 O2 Delivery Device BiPAP BiPAP Vent Mode Not entered Not entered POC PEEP 8 Peak Inspir Pressure 18 Clinical Comments 18. 8. Radiography Diagnostic Testing: Radiology Impression Chest X-Ray 01/24/24 23:01 IMPRESSION: Bilateral infiltrates and small pleural effusions likely edema. Electronically Signed: Jeanne Lopez MD at 23:39 EDT , Chest CTA 01/24/24 23:35 IMPRESSION: 1. No evidence of pulmonary emboli. 2. Findings consistent with pulmonary edema with small to moderate bilateral pleural effusions, increased compared to the prior study. Cannot exclude superimposed pneumonia especially in the lower lobes. 3. Underlying emphysematous changes. The presence of pulmonary emphysema on CT scan is an independent risk factor for lung cancer. Consider low dose lung cancer screening in the future. This study serves as a baseline. 4. Mediastinal and hilar adenopathy may be reactive, and not significantly changed. Follow-up suggested. Electronically Signed: Jeanne Lopez MD at 1:33 EDT , Physical Exam Const alert and no apparent distress HEENT head/scalp atraumatic and moist oral mucous membranes Resp normal respiratory effort, no retractions, no use of accessory muscles and clear to auscultation bilaterally Cardio regular rate, regular rhythm, S1 normal heart sound and S2 normal heart sound GI normal to inspection, nondistended, normoactive bowel sounds, soft to palpation, non-tender, non-distended and hepatosplenomegaly Extremity normal to inspection Assessment & Plan Assessment/Plan (1) Sepsis: QUALIFIERS: Acute respiratory failure type: unspecified Sepsis acute organ dysfunction status: with acute organ dysfunction Sepsis type: s epsis due to unspecified organism Severe sepsis acute organ dysfunction type: a cute respiratory failure Severe sepsis shock status: without septic shock Q ualified Code(s): A41.9 - Sepsis, unspecified organism; R65.20 - Severe sepsis without septic shock; J96.00 - Acute respiratory failure, unspecified whether with hypoxia or hypercapnia (2) Pneumonia: QUALIFIERS: Laterality: bilateral Lung location: unspecified part of lung Pneumonia type: due to unspecified organism Qualified Code(s): J18.9 - Pneumonia, unspecified organism (3) COPD with acute exacerbation: (4) Acute hypoxic on chronic hypercapnic respiratory failure: (5) Leukocytosis: QUALIFIERS: Leukocytosis type: unspecified Qualified Code(s): D 72.829 - Elevated white blood cell count, unspecified (6) Lactic acidosis: (7) Pulmonary edema: QUALIFIERS: Chronicity: acute Qualified Code(s): J81.0 - Acute pulmonary edema (8) Heart failure, systolic, chronic, etiology unknown: (9) D-dimer, elevated: PLAN: Plan Possible Sepsis * SIRS 3/4 (HR 132, RR 42, WBC 16.8), qSOFA 2 (BP 97/72, RR 42) * pt did not receive 30cc/kg of IVF due to CHF. * on pip/tazo and vancomycin. Follow up cultures. * Etiology unclear: possible pneumonia, but cannot parse out at this time given CHF. Additionally, cannot determine if pt does indeed have an infection at this time. Through [employer], WBCs have chronically been elevated. * Follow up SCx, BCx, Strep and legionella antigens, UA, UCx. * CCM consult AECOPD * on methylpred and BDs. Acute HFrEF: * Echo on 12/09: EF 45% * Did receive 40 of IV furosemide in ED Acute hypercapnic respiratory failure * improved. Did require BiPAP, but since weaned down. NSTEMI * suspect type II given possible sepsis. respiratory failure. Elevation not as profound as it was back in November. * on therapeutic enoxaparin. * Pt noted to have multivessel disease back in November and was transferred to [facility] for a bypass. Attempted to review through [facility] but the service currently unavailable. Request records from [facility]. Discussed with the patient he stated that when he was at [facility] that he did not have any procedures performed however, he is supposed undergo a CABG later on this month at the [facility]. * repeat echo * on ASA, atorvastatin Elevated d-dimer * 1.67 present on admission * CTA of the chest negative for PE. Duplex lower extremities negative. Discontinue therapeutic enoxaparin. Chronic conditions: * Hyperlipidemia: statintin. * PAD: AAA s/p endovascular stent graft * BPH: tamsulosin VTE prophylaxis: Not indicated as patient is anticoagulated Charges/Coding Procedures Hospitalists Procedures: Other Procedure - See Report (Nonbillable rounding as patient was admitted after midnight.)
[2024-01-25 07:41] LABS: Hemoglobin A1c 5.5 % (3.8-5.6)
--- NOTE | 2024-01-25 08:05 | ECHOD_ITS ---
Reason For Study: NSTEMI Procedure This was a 2D Doppler, Color Flow transthoracic echocardiogram. Myocardial strain analysis was performed in this exam to aid in the assessment of cardiac function. Exam performed portable in ICU/CCU. Left Ventricle Normal LV size. The left ventricular ejection fraction is 50 %. Mild segmental systolic dysfunction (see wall motion). Infero-Basal: Hypokinetic. Mid-Inferior: Hypokinetic. Right Ventricle Normal RV size. Normal systolic function. Mitral Valve Bileaflet diffuse mitral valve thickening. Mild-Moderate (1-2+) eccentric mitral valve insufficiency. Tricuspid Valve Normal tricuspid valve. Aortic Valve Trisinus/trileaflet aortic valve. Severe focal aortic valve calcification. Peak aortic valve gradient 61 mmHg. Mean aortic valve gradient 35 mmHg. Moderate to severe aortic stenosis. Mild (1+) aortic valve insufficiency. Pulmonic Valve Normal pulmonic valve. Great Vessels Normal aortic root. The pulmonary artery is normal size. Inferior vena cava collapse with respiration. Pericardium/Pleural No pericardial effusion. MMode/2D Measurements & Calculations LVIDd: 5.0 cm IVSd: 1.6 cm LVOT diam: 2.0 cm LVIDs: 4.3 cm LVPWd: 1.1 cm LVOT area: 3.1 cm2 RVDd: 3.6 cm FS: 14.7 % LA dimension: 4.5 cm LAV(MOD-bp): 65.4 ml LVAd ap4: 42.1 cm2 LAV(MOD-bp) Indexed: 38.0 ml/m2 LVLd ap4: 9.2 cm LAV(MOD-sp2): 66.4 ml EDV(MOD-sp4): 158.5 ml LAV(MOD-sp4): 64.5 ml EDV(sp4-el): 163.7 ml LVAs ap4: 28.2 cm2 LVLs ap4: 7.6 cm ESV(MOD-sp4): 87.2 ml ESV(sp4-el): 88.7 ml EF(MOD-sp4): 45.0 % EF(sp4-el): 45.8 % SV(MOD-sp4): 71.4 ml SV(sp4-el): 75.0 ml LA A4 area: 20.3 cm2 RA A4 area: 11.1 cm2 TAPSE: 1.9 cm Time Measurements MV dec time: 0.16 sec Doppler Measurements & Calculations MV E max james: 97.4 cm/sec Lat Peak E' James: 6.9 cm/sec Med Peak E' James: 5.9 cm/sec MV A max james: 54.4 cm/sec E/E' lat: 14.0 E/E' med: 16.6 MV E/A: 1.8 MV V2 max: 140.5 cm/sec MV P1/2t max james: 138.3 cm/sec Ao V2 max: 391.1 cm/sec MV max P.9 mmHg MV P1/2t: 65.1 msec Ao max P.2 mmHg MV V2 mean: 69.0 cm/sec Ao V2 mean: 279.6 cm/sec MV mean P.4 mmHg MV dec slope: 622.9 cm/sec2 Ao mean P.4 mmHg MV V2 VTI: 35.3 cm MVA(P1/2t): 3.4 cm2 Ao V2 VTI: 91.1 cm AV (velocity ratio): 0.19 MVA(VTI): 1.5 cm2 TEODORA(I,D): 0.59 cm2 TEODORA(V,D): 0.56 cm2 AI max james: 393.1 cm/sec LV V1 max: 71.1 cm/sec MR max james: 488.3 cm/sec AI max P.8 mmHg LV V1 max P.0 mmHg MR max P.4 mmHg AI dec slope: 358.2 cm/sec2 LV V1 mean P.2 mmHg MR mean james: 363.7 cm/sec AI P1/2t: 321.4 msec LV V1 mean: 52.1 cm/sec MR mean P.6 mmHg LV V1 VTI: 17.6 cm MR VTI: 150.6 cm SV(LVOT): 54.1 ml PA V2 max: 85.2 cm/sec TR max james: 127.4 cm/sec PA max PG (full): -0.23 mmHg TR max P.5 mmHg ECHO/Echo Complete Interpretation Summary Normal LV size. The left ventricular ejection fraction is 50 %. Mild segmental systolic dysfunction (see wall motion). Mean aortic valve gradient 35 mmHg. Severe focal aortic valve calcification. Mild (1+) aortic valve insufficiency. Moderate to severe aortic stenosis. The global longitudinal strain is severely abnormal. The global longitudinal st rain = -10.9% (abnormal). Ordering Physician: Pablo Noel Performed By: Ebenezer Styles RCS
[2024-01-25 08:10] LABS: Bacteria 0 SEEN /hpf (None Seen); Mucous, Urine 0 SEEN /hpf (<or=2+); Red Blood Cells-Urine 0 SEEN /hpf (0-5); Squamous Epithelial Cells - UA 0 SEEN /hpf (0-5); White Blood Cells 0 SEEN /hpf (0-5)
[2024-01-25 08:15] LABS: Color, Urine Straw (Yellow); Glucose, Dipstick Normal (Normal); Ketone-Dipstick Negative (Negative); Leukocyte Esterase-Dipstick Negative /ul (Negative); Nitrite-Dipstick Negative (Negative); Occult Blood-Urine Negative /ul (Negative); Protein-Dipstick Negative (Negative); Urine Bilirubin Dipstick Negative (Negative); Urine Clarity Clear (Clear); Urine Urobilinogen Normal (Normal)
--- NOTE | 2024-01-25 08:30 | EX.PCM.CONCC ---
Assessment & Plan Assessment/Plan (1) Acute respiratory failure with hypoxia and hypercapnia: PLAN: Plan RECOMMENDATIONS: 1. Continue supplemental oxygen to maintain saturations at or above 90%. 2. Start scheduled bronchodilator therapy. 3. Continue IV steroids. 4. Recommend PAP therapy with naps and nightly. 5. Continue empiric antibiotics, pending infectious workup. 6. Repeat echocardiogram is pending. 7. Check respiratory viral panel. 8. Continue Lovenox for prophylaxis. 9. Ultimately, close outpatient follow-up with primary linderman machine operator at [facility] is recommended. IMPRESSIONS: 1. Acute hypoxemic and hypercapnic respiratory failure Clinical concern for underlying COPD with exacerbation coupled with decompensated heart failure, given findings noted on chest imaging and rapid response clinically to diuretics and noninvasive positive pressure ventilatory support. The patient is currently being worked up by an outside linderman machine operator. While he does have an extensive tobacco abuse history, he has yet to complete pulmonary function studies to confirm a diagnosis of COPD. Regardless, it is reasonable at this particular time, to continue bronchodilator therapy and steroids. While sepsis is a possibility, I feel that it is far more likely that his presenting respiratory failure and lactic acidemia are likely secondary to inadequately addressed chronic lung disease with resultant hypoxemia. Nevertheless, we will plan to continue empiric antibiotics for the next 24 hours, pending infectious workup. 2. Acute on chronic systolic heart failure The patient has known multivessel coronary disease and was referred to undergo CABG. According to the patient, he is being worked up by cardiothoracic surgery through [facility], with tentative plans for upcoming surgical intervention. Repeat echocardiogram is pending. 3. History of tobacco dependency in remission/history of AAA/hyperlipidemia Complicates care, management, recovery and prognosis. Continue supportive measures as noted above. CODE status: Discussed CODE status at length including difference between FULL code, DNR-CCA and DNR-CC status. Following discussions about the differences in these status, patient requested FULL CODE STATUS. Advanced Care Planning Face to Face Time: 19 minutes This note was generated with CoderBuddyation software. It may contain incorrect words, spelling, and punctuation that were not noted in checking the note before signing. HPI Consult Data Date of Consult: 01/25/24 HPI Narrative Reason for Consultation: Respiratory failure HPI Narrative: The patient is a 78-year-old male, with a history as outlined below, who presented to the emergency department on January 23 with progressive shortness of breath. The patient did report a longstanding tobacco abuse history, but stated that he quit smoking 1 month ago. He also reported that he used to be a heavy drinker, but more recently, only drinks on average 3 beers per month. According to the patient, he was evaluated by Dr. Tessie Ortega at [facility] pulmonary, who apparently ordered pulmonary function studies on him. He has yet to complete testing. He reported that he does not regularly utilize supplemental oxygen at his baseline. He stated that he does have access to an albuterol rescue inhaler, but is not currently prescribed any maintenance inhaler medications. In addition to the aforementioned, the patient underwent cardiac catheterization in November 2023 which demonstrated multivessel coronary artery disease for which CT surgery consultation for possible CABG was recommended. The patient reported to me that he was seen by cardiothoracic who is apparently planning for surgery in 1 week. On presentation to the emergency department, the patient was documented to have a temperature of 97.4 ?F. He was mildly tachycardic and tachypneic but otherwise hemodynamically stable. Laboratory evaluation revealed an elevated white blood cell count to 17,000. D-dimer was mildly elevated at 1.67. ABG was obtained and was notable for a pH of 7.27 with a pCO2 of 47 and pO2 of 102. Chemistry profile was unremarkable. Lactate was elevated at 3.1. Troponin was increased at 114 with a BNP of 1228. Urine analysis was unremarkable. CTA chest showed no evidence for pulmonary embolism. Bilateral emphysematous changes were noted along with interstitial septal thickening and small bilateral pleural effusions. The patient ultimately received IV Lasix and was started on PAP therapy along with antimicrobials. He was admitted to the medical intensive care unit for further management. [facility] Medical History Elevated troponin Hyperlipidemia Hypertension COPD (chronic obstructive pulmonary disease) Non-ST elevated myocardial infarction (non-STEMI) Home Medications ?Medication ?Instructions ?Recorded ?Last Taken ?Type albuterol sulfate 90 mcg/actuation 2 puff inhalation Q4H PRN PRN 12/10/23 12/09/23 History aerosol inhaler shortness of breath or wheezing aspirin 81 mg capsule 81 mg PO DAILY heart disease 12/10/23 Unknown History cilostazol 100 mg tablet 100 mg PO BID 12/10/23 12/09/23 History rosuvastatin 10 mg tablet 10 mg PO DAILY 12/10/23 12/09/23 History tamsulosin 0.4 mg capsule 0.4 mg PO DAILY 12/10/23 12/09/23 History Allergy/AdvReac Type Severity Reaction Status Date / Time pseudoephedrine Allergy Mild Hives Verified 12/10/23 05:38 Family History Son Heart disease Surgical History H/O endovascular stent graft for abdominal aortic aneurysm Social History Smoking Status: Former smoker Tobacco: How many years used: 57 ROS ROS Narrative 10 systems were reviewed with pertinent positives as noted in the HPI above. Physical Exam Const alert, oriented x3 and no apparent distress General Appearance: cooperative HEENT normocephalic, head/scalp atraumatic and moist oral mucous membranes Eyes PERRL, EOMs intact bilaterally and conjunctivae normal Neck supple General: trachea midline Chest Chest Narrative: Increased AP diameter Resp normal respiratory effort Auscultation: diminished lung sounds; Negative for rales, rhonchi or wheezes Cardio regular rate and regular rhythm GI normal to inspection, nondistended, normoactive bowel sounds Extremity no clubbing, cyanosis or edema Skin no rashes or lesions noted Neuro CN's II-XII intact bilaterally, moves all extremities and no focal motor deficits Psych cooperative and affect normal Lab / Micro Data 01/24/24 22:53 01/24/24 22:53 Labs: Laboratory Results - last 24 hr 01/24/24 22:53: WBC 16.8 H, RBC 4.56 L, Hgb 13.3, Hct 42.2, MCV 92.5, MCH 29.2, MCHC 31.5 L, RDW Std Deviation 49.5 H, RDW Coeff of Mike 14.4, Plt Count 270, MPV 11.3, Immature Gran % (Auto) 0.500, Neut % (Auto) 50.4, Lymph % (Auto) 40.1, [place] % (Auto) 4.4, Eos % (Auto) 3.4, Baso % (Auto) 1.2 H, Absolute Neuts (auto) 8.5 H, Absolute Lymphs (auto) 6.72 H, Nucleated RBC % 0, Differential Comment SCANNED, D-Dimer Quant (PE/DVT) 1.67 H*, Sodium 138, Potassium 3.7, Chloride 104, Carbon Dioxide 23.0, Anion Gap 11, BUN 21 H, Creatinine 1.25, Estim Creat Clear Calc 44.24, Est GFR (MDRD) Af Amer 72, Est GFR (MDRD) Non-Af 60, BUN/Creatinine Ratio 16.8, Glucose 229 H, Lactic Acid 3.1 H*, Calcium 9.2, Troponin I High Sens 60, B-Natriuretic Peptide 1228.6 H 01/25/24 01:15: Troponin I High Sens 114 H 01/25/24 03:55: Lactic Acid 2.1 H*, Troponin I High Sens 134 H*, B-Natriuretic Peptide 1330.0 H 01/25/24 06:10: Hemoglobin A1c 5.5 01/25/24 08:00: Urine Color Straw, Urine Clarity Clear, Urine pH 6.0, Ur Specific [place] 1.010, Urine Protein Negative, Urine Glucose (UA) Normal, Urine Ketones Negative, Urine Occult Blood Negative, Urine Nitrite Negative, Urine Bilirubin Negative, Urine Urobilinogen Normal, Ur Leukocyte Esterase Negative, Urine RBC 0 SEEN, Urine WBC 0 SEEN, Ur Squamous Epith Cells 0 SEEN, Urine Bacteria 0 SEEN, Urine Mucus 0 SEEN Micro: Microbiology 01/24/24 22:53 Mucosa - Nose SARS-CoV-2, Influenza & RSV (PCR) - Final ABG Data ABG results: ABG 01/24/24 01/25/24 23:05 03:15 Specimen Type ART ART Sample Site R Radial R Radial pH 7.27 L 7.41 Bicarbonate Actual 21.4 L 23.4 Total CO2 23 25 Base Excess -6 L -1 O2 Saturation 97 97 O2 % 45.0 35.0 ABG pCO2 47.0 H 36.6 ABG pO2 102 H 91 Mitch Test Positive Positive Respiration Rate 12 O2 Delivery Device BiPAP BiPAP Vent Mode Not entered Not entered POC PEEP 8 Peak Inspir Pressure 18 Clinical Comments 18. 8. Imaging Radiology Impression Chest X-Ray 01/24/24 23:01 IMPRESSION: Bilateral infiltrates and small pleural effusions likely edema. Electronically Signed: Jeanne Lopez MD at 23:39 EDT , Chest CTA 01/24/24 23:35 IMPRESSION: 1. No evidence of pulmonary emboli. 2. Findings consistent with pulmonary edema with small to moderate bilateral pleural effusions, increased compared to the prior study. Cannot exclude superimposed pneumonia especially in the lower lobes. 3. Underlying emphysematous changes. The presence of pulmonary emphysema on CT scan is an independent risk factor for lung cancer. Consider low dose lung cancer screening in the future. This study serves as a baseline. 4. Mediastinal and hilar adenopathy may be reactive, and not significantly changed. Follow-up suggested. Electronically Signed: Jeanne Lopez MD at 1:33 EDT , Charges/Coding Visit Charges Inpatient E&M: 98360 Init Hosp L3 Multi Select Codes Hospitalists' Procedures Procedures: 43962 Advncd Care Plan 30 Min
[2024-01-25] MEDS: Atorvastatin Calcium 20 MG Tablet PO (09:45)
[2024-01-25] MEDS: Aspirin 81 MG TAB.CHEW PO (09:45)
[2024-01-25] MEDS: Tamsulosin HCl 0.4 MG Capsule PO (09:45)
[2024-01-25] MEDS: Cilostazol 50 MG Tablet 100 MG PO ×2 (09:46→21:43)
[2024-01-25] MEDS: Pantoprazole Sodium 40 MG Tablet PO (09:46)
[2024-01-25] MEDS: 0.9% Saline Lock 10 ML Syringe IV ×3 (09:46→17:52)
[2024-01-25] MEDS: MethylPREDNISolone 125 MG/2 ML Vial 60 MG IV (09:46)
[2024-01-25] MEDS: guaiFENesin 600 MG Tablet PO ×2 (09:46→21:43)
[2024-01-25] MEDS: Ipratropium/Albuterol Sulfate 3 ML AMPUL.NEB INHALATION ×3 (11:12→18:58)
--- NOTE | 2024-01-25 12:03 | CASEMGMT ---
YAYO CAUSEY Assessment Face to Face with patient for initial transition planning/care coordination assessment. RN MARIUM introduced self and role at [facility], pt voices understanding. Pt is A&Ox4 and is resting comfortably in bed and is calm. Care providers, pharmacy, and demographics verified. Admitting dx: AE COPD, PNA, Elevated Troponin LACE Strata: 2 PCP: Rex Lizama Specialists: Dr. Tessie Ortega (Pulmonary). Per chart review, Dr. Will Ortega states that apparently the pt has pulmonary function studies ordered from this specialist that the pt has yet to complete. Pt also states that he plans to see a technical illustrator at [facility] for cardiac surgery sometime after DC. Preferred Pharmacy: [facility] Insurance: [employer] Prescription Benefit: Yes LNOK: Ancelmo Russell (Son). Pt also has 2 more sons that he declined to give names Living Arrangements: Pt lives with his 3 sons in a two story home with a flat entrance ADLs/IADLs: Ind Transportation: Self, Sons. Denies concerns DME: [employer]. Pt denies all other DME uses or needs. CM to follow in the case that the pt qualifies for home oxygen. Pt is currently 96% on RA. HHC/SNF: Denies Hx or needs ETOH/ Smoking Hx: Pt states that he quit smoking x 1 month ago. Pt states that he drinks around 3 beers per month Pt?s goal: Home Plan: Home. 6c=23. Pt denies the need for HHC, OP Tx, or SNF. Pt states that he plans to DC home with his sons once he is medically ready. Pt states that he plans to f/u with his technical illustrator through the for cardiac surgery in the near future. Pt denies further questions or concerns from this RN MARIUM at this time. Raheel Martínez RN, CM
[2024-01-25] MEDS: Vancomycin IV 500 MG/100 ML BAG 100 MG IV (16:29)
[2024-01-25 17:00] LABS: Troponin-I HS 58 pg/mL (3.0-78.0)
[2024-01-25] MEDS: Isosorbide Mononitrate 30 MG Tablet PO (18:41)
[2024-01-25 18:56] LABS: Troponin-I HS 1110 pg/mL (3.0-78.0)
[2024-01-25] MEDS: Metoprolol Tartrate 25 MG Tablet PO (21:40)
[2024-01-25 22:57] LABS: Troponin-I HS 14834 pg/mL (3.0-78.0)
[2024-01-26] VITALS (15 sets, daily range): BP systolic 92–114; BP diastolic 47–83; PULSE 72–109; RESP 17–31; TEMP 36.4–36.7; O2SAT 96–99; BMI 19.8
[2024-01-26] MEDS: Vancomycin IV 500 MG/100 ML BAG 100 MG IV (03:50)
[2024-01-26] MEDS: Piperacil/Tazobactam 3.375 GM in 0.9% Normal Saline (50mL MB+) 50 ML IV ×2 (05:16→14:41)
[2024-01-26] MEDS: Enoxaparin 60 MG/0.6 ML Syringe SC ×2 (05:42→16:29)
--- NOTE | 2024-01-26 06:43 | PCM.PN.INT ---
Assessment & Plan Assessment/Plan (1) Acute respiratory failure with hypoxia and hypercapnia: PLAN: Plan RECOMMENDATIONS: 1. Continue scheduled bronchodilator therapy. 2. Continue prednisone daily. 3. Recommend PAP therapy with naps and nightly. 4. Okay from my perspective to discontinue antimicrobials. 5. Continue Lovenox for prophylaxis. 6. Ultimately, close outpatient follow-up with primary cobol mainframe developer at [facility] is recommended. 7. Transfer to [facility] is pending. Will sign off from a critical care perspective. IMPRESSIONS: 1. Acute hypoxemic and hypercapnic respiratory failure Clinical concern for underlying COPD with exacerbation coupled with decompensated heart failure, given findings noted on chest imaging and rapid response clinically to diuretics and noninvasive positive pressure ventilatory support. The patient is currently being worked up by an outside cobol mainframe developer. While he does have an extensive tobacco abuse history, he has yet to complete pulmonary function studies to confirm a diagnosis of COPD. Regardless, it is reasonable at this particular time, to continue bronchodilator therapy and steroids. While sepsis is a possibility, I feel that it is far more likely that his presenting respiratory failure and lactic acidemia are likely secondary to inadequately addressed chronic lung disease with resultant hypoxemia. Given low suspicion for underlying pulmonary infectious etiology, I am okay with discontinuing antimicrobials. 2. Acute on chronic systolic heart failure/NSTEMI The patient has known multivessel coronary disease and was referred to undergo CABG. According to the patient, he is being worked up by cardiothoracic surgery through [facility], with tentative plans for upcoming surgical intervention. Given his elevated troponin and a chest discomfort, the patient is going to be transferred to [facility], as he will ultimately require surgical intervention. 3. History of tobacco dependency in remission/history of AAA/hyperlipidemia Complicates care, management, recovery and prognosis. Continue supportive measures as noted above. CODE status: Full code This note was generated with [employer] dictation software. It may contain incorrect words, spelling, and punctuation that were not noted in checking the note before signing. Subjective Subjective The patient was seen and examined at the bedside this morning. Events from the last 24 hours have been reviewed. The patient is currently afebrile, hemodynamically stable and maintaining appropriate oxygen saturations on room air. The patient had an elevated troponin and chest discomfort overnight. He currently has a pending transfer to [facility], given his history of multivessel coronary disease, which will require surgical intervention. White count is elevated at 21,000. Potassium is low at 3.1 with a normal creatinine. The patient's last troponin was noted to be 14,834. Objective Data Objective Data The patient's most recent lab work, culture data and imaging studies have all been personally reviewed. Surface echocardiogram demonstrated normal LV size and function with an ejection fraction of 50%. Severe aortic valve calcification was noted. Moderate to severe aortic stenosis was present. Lower extremity Doppler study was negative for DVT. Vital Signs: Vital Signs Temp Pulse Resp BP Pulse Ox O2 Del Method O2 Flow Rate 97.9 F 72 20 H 101/60 97 Room Air 2 01/26/24 04:00 01/26/24 04:00 01/26/24 04:00 01/26/24 04:00 01/26/24 06:00 01/26/24 06:00 01/25/24 09:00 FiO2 25 01/26/24 04:00 Oxygen Flow Rate (L/min) 2 Oxygen Delivery Method Room Air Weight: 131 lb Body Mass Index (BMI) 19.8 Intake & Output: Intake and Output for Last 24 Hours 01/24/24 01/25/24 01/26/24 23:59 23:59 23:59 Intake Total 3755 / 3755 150 / 150 Output Total 1050 / 1950 1100 / 1100 Balance 2705 / 1805 -950 / -950 Lab / Micro Data Attestation: I reviewed the patient's lab results. 01/26/24 07:02 01/26/24 07:02 Labs: Laboratory Results - last 24 hr 01/25/24 06:10: Hemoglobin A1c 5.5 01/25/24 08:00: Urine Color Straw, Urine Clarity Clear, Urine pH 6.0, Ur Specific [place] 1.010, Urine Protein Negative, Urine Glucose (UA) Normal, Urine Ketones Negative, Urine Occult Blood Negative, Urine Nitrite Negative, Urine Bilirubin Negative, Urine Urobilinogen Normal, Ur Leukocyte Esterase Negative, Urine RBC 0 SEEN, Urine WBC 0 SEEN, Ur Squamous Epith Cells 0 SEEN, Urine Bacteria 0 SEEN, Urine Mucus 0 SEEN 01/25/24 16:25: Troponin I High Sens 58 01/25/24 18:24: Troponin I High Sens 1110 H* 01/25/24 22:29: Troponin I High Sens 92930 H* Micro: Microbiology 01/24/24 22:59 Sputum, Expectorated/Coughed Gram Stain - Final 01/24/24 22:59 Sputum, Expectorated/Coughed Respiratory Culture - Preliminary Appears to be normal respiratory andrew. Further studies to follow. 01/25/24 09:24 Mucosa - Nasopharyngeal Respiratory Panel (PCR) - Final 01/25/24 07:50 Urine, Random Legionella Antigen - Final 01/25/24 07:50 Urine, Random Streptococcus pneumoniae Antigen (M - Final 01/24/24 22:53 Mucosa - Nose SARS-CoV-2, Influenza & RSV (PCR) - Final Radiography Diagnostic Testing: Radiology Impression Venous Doppler Study 01/25/24 02:45 Interpretation Summary Deep veins of the bilateral lower extremities are patent and compressible segmentally. There is no evidence of bilateral lower extremity deep vein thrombosis. The bilateral great saphenous veins appear patent and compressible segmentally. Ordering Physician: Isreal Tovar Referring Physician: Rex Lizama Performed By: Martine Hernandez RVT Echocardiogram 01/25/24 08:05 Interpretation Summary Normal LV size. The left ventricular ejection fraction is 50 %. Mild segmental systolic dysfunction (see wall motion). Mean aortic valve gradient 35 mmHg. Severe focal aortic valve calcification. Mild (1+) aortic valve insufficiency. Moderate to severe aortic stenosis. The global longitudinal strain is severely abnormal. The global longitudinal strain = -10.9% (abnormal). Ordering Physician: Pablo Noel Performed By: Brodwolf, Ebenezer, RCS Physical Exam Const alert, oriented x3 and no apparent distress General Appearance: cooperative HEENT normocephalic, head/scalp atraumatic and moist oral mucous membranes Eyes PERRL, EOMs intact bilaterally and conjunctivae normal Neck supple General: trachea midline Chest Chest Narrative: Increased AP diameter Resp normal respiratory effort Auscultation: diminished lung sounds; Negative for rales, rhonchi or wheezes Cardio regular rate and regular rhythm Heart Sounds: murmur GI normal to inspection, nondistended, normoactive bowel sounds Extremity no clubbing, cyanosis or edema Skin no rashes or lesions noted Neuro CN's II-XII intact bilaterally, moves all extremities and no focal motor deficits Psych cooperative and affect normal Charges/Coding Visit Charges Inpatient E&M: 88495 Subs Hosp L2
--- NOTE | 2024-01-26 07:09 | PN.HOSP_ITS ---
Reason for Visit Reason for Visit: Diagnoses Sepsis, unspecified organism (01/25/24) Elevated white blood cell count, unspecified (01/25/24) Acidosis, unspecified (01/25/24) Chronic systolic (congestive) heart failure (01/25/24) Heart failure, unspecified (01/25/24) Pneumonia, unspecified organism (01/25/24) Chronic obstructive pulmonary disease with (acute) exacerbation (01/25/24) Acute pulmonary edema (01/25/24) Chronic pulmonary edema (01/25/24) Acute respiratory failure, unspecified whether with hypoxia or hypercapnia (01/25/24) Acute respiratory failure with hypoxia (01/25/24) Acute respiratory failure with hypercapnia (01/25/24) Chronic respiratory failure with hypercapnia (01/25/24) Severe sepsis without septic shock (01/25/24) Hyperglycemia, unspecified (01/25/24) Other specified abnormal findings of blood chemistry (01/25/24) Subjective Subjective Had chest pain last night. Currently chest pain free. Objective Data Objective Data Vital Signs: Vital Signs Temp Pulse Resp BP Pulse Ox O2 Del Method O2 Flow Rate 36.6 C 72 20 H 101/60 97 Room Air 2 01/26/24 04:00 01/26/24 04:00 01/26/24 04:00 01/26/24 04:00 01/26/24 06:00 01/26/24 06:00 01/25/24 09:00 FiO2 25 01/26/24 04:00 Oxygen Flow Rate (L/min) 2 Oxygen Delivery Method Room Air Weight: 59.421 kg Body Mass Index (BMI) 19.8 Intake & Output: Intake and Output for Last 24 Hours 01/24/24 01/25/24 01/26/24 23:59 23:59 23:59 Intake Total 3755 / 3755 150 / 150 Output Total 1050 / 1950 1100 / 1100 Balance 2705 / 1805 -950 / -950 Lab / Micro Data 01/26/24 07:02 01/26/24 07:02 Labs: Laboratory Results - last 24 hr 01/25/24 06:10: Hemoglobin A1c 5.5 01/25/24 08:00: Urine Color Straw, Urine Clarity Clear, Urine pH 6.0, Ur Specific [place] 1.010, Urine Protein Negative, Urine Glucose (UA) Normal, Urine Ketones Negative, Urine Occult Blood Negative, Urine Nitrite Negative, Urine Bilirubin Negative, Urine Urobilinogen Normal, Ur Leukocyte Esterase Negative, Urine RBC 0 SEEN, Urine WBC 0 SEEN, Ur Squamous Epith Cells 0 SEEN, Urine Bacteria 0 SEEN, Urine Mucus 0 SEEN 01/25/24 16:25: Troponin I High Sens 58 01/25/24 18:24: Troponin I High Sens 1110 H* 01/25/24 22:29: Troponin I High Sens 00799 H* Micro: Microbiology 01/24/24 22:59 Sputum, Expectorated/Coughed Gram Stain - Final 01/24/24 22:59 Sputum, Expectorated/Coughed Respiratory Culture - Preliminary Appears to be normal respiratory andrew. Further studies to follow. 01/25/24 09:24 Mucosa - Nasopharyngeal Respiratory Panel (PCR) - Final 01/25/24 07:50 Urine, Random Legionella Antigen - Final 01/25/24 07:50 Urine, Random Streptococcus pneumoniae Antigen (M - Final 01/24/24 22:53 Mucosa - Nose SARS-CoV-2, Influenza & RSV (PCR) - Final Radiography Diagnostic Testing: Radiology Impression Venous Doppler Study 01/25/24 02:45 Interpretation Summary Deep veins of the bilateral lower extremities are patent and compressible segmentally. There is no evidence of bilateral lower extremity deep vein thrombosis. The bilateral great saphenous veins appear patent and compressible segmentally. Ordering Physician: Isreal Tovar Referring Physician: Rex Lizama Performed By: Martine Hernandez RVT Echocardiogram 01/25/24 08:05 Interpretation Summary Normal LV size. The left ventricular ejection fraction is 50 %. Mild segmental systolic dysfunction (see wall motion). Mean aortic valve gradient 35 mmHg. Severe focal aortic valve calcification. Mild (1+) aortic valve insufficiency. Moderate to severe aortic stenosis. The global longitudinal strain is severely abnormal. The global longitudinal strain = -10.9% (abnormal). Ordering Physician: Pablo Noel Performed By: Ebenezer Styles RCS Physical Exam Const alert and no apparent distress HEENT head/scalp atraumatic and moist oral mucous membranes Resp normal respiratory effort, no retractions, no use of accessory muscles and clear to auscultation bilaterally Cardio regular rate, regular rhythm, S1 normal heart sound, S2 normal heart sound and no murmurs GI normal to inspection, nondistended, normoactive bowel sounds, soft to palpation, non-tender and non-distended Extremity normal to inspection and full ROM Neuro moves all extremities Sensorium / Orientation: awake and alert Psych affect normal Assessment & Plan Assessment/Plan (1) Sepsis: QUALIFIERS: Acute respiratory failure type: unspecified Sepsis acute organ dysfunction status: with acute organ dysfunction Sepsis type: s epsis due to unspecified organism Severe sepsis acute organ dysfunction type: a cute respiratory failure Severe sepsis shock status: without septic shock Q ualified Code(s): A41.9 - Sepsis, unspecified organism; R65.20 - Severe sepsis without septic shock; J96.00 - Acute respiratory failure, unspecified whether with hypoxia or hypercapnia (2) Pneumonia: QUALIFIERS: Laterality: bilateral Lung location: unspecified part of lung Pneumonia type: due to unspecified organism Qualified Code(s): J18.9 - Pneumonia, unspecified organism (3) COPD with acute exacerbation: (4) Acute hypoxic on chronic hypercapnic respiratory failure: (5) Leukocytosis: QUALIFIERS: Leukocytosis type: unspecified Qualified Code(s): D 72.829 - Elevated white blood cell count, unspecified (6) Lactic acidosis: (7) Pulmonary edema: QUALIFIERS: Chronicity: acute Qualified Code(s): J81.0 - Acute pulmonary edema (8) Heart failure, systolic, chronic, etiology unknown: (9) D-dimer, elevated: PLAN: Plan NSTEMI * Developed chest pain while he was here and initial troponins went down but only to go up significantly up to 14,834. * Pt noted to have multivessel disease back in November and was transferred to [facility] for a bypass. Did review records from [facility] And patient did see CT surgery, vascular surgery. Patient states that he saw Dr. Murrell earlier this week who the patient states referred him to cardiothoracic surgeon at [facility]. I discussed the case with Dr. Santiago who did his heart cath in November and would be available for discussion with the accepting facility if necessary. I reached out to [facility] about initiating transfer with this non-STEMI. * repeat echo shows an EF of 50%, severe focal aortic valve calcification, +1 aortic valve insufficiency, moderate to severe aortic stenosis. * on ASA, atorvastatin. On therapeutic enoxaparin. * DW Dr. Santiago, who recommends transfer. I call [facility] for transfer and spoke with Dr. Pringle, who agreed to accept the patient for transfer. Possible Sepsis * SIRS 3/4 (HR 132, RR 42, WBC 16.8), qSOFA 2 (BP 97/72, RR 42) * pt did not receive 30cc/kg of IVF due to CHF. * on pip/tazo and vancomycin. Follow up cultures. * Etiology unclear: possible pneumonia, but cannot parse out at this time given CHF. Additionally, cannot determine if pt does indeed have an infection at this time. Through [employer], WBCs have chronically been elevated. * Follow up SCx, BCx, Strep and legionella antigens, UA, UCx. * [facility] consult AECOPD * on methylpred and BDs. Acute HFrEF: * Echo on 12/09: EF 45% * Did receive 40 of IV furosemide in ED. Patient also did receive an additional dose on the . Patient was tachypneic and did require BiPAP temporarily. Acute hypercapnic respiratory failure * improved. Did require BiPAP, but since weaned down. Elevated d-dimer * 1.67 present on admission * CTA of the chest negative for PE. Duplex lower extremities negative. Discontinue therapeutic enoxaparin. Chronic conditions: * Hyperlipidemia: statintin. * PAD: AAA s/p endovascular stent graft * BPH: tamsulosin VTE prophylaxis: Not indicated as patient is anticoagulated Awaiting on transfer to [facility] main. DW patient's son at bedside. Greater than 75 minutes of which greater than 50% of time was coordinating care and guards to facilitating transfer, discussing with specialists. Charges/Coding Visit Charges Inpatient E&M: 00789 Subs Hosp L3
[2024-01-26] MEDS: Ipratropium/Albuterol Sulfate 3 ML AMPUL.NEB INHALATION ×4 (07:18→19:10)
[2024-01-26 07:23] LABS: Absolute Neutrophil Count 18.5 X10^3/uL (2.0-7.7); Basophil# 0.03 X10^3/uL; Basophil% 0.1 % (0-1); Hemoglobin 11.5 g/dL (13.0-16.5); Lymphocyte % 6.7 % (19-41); Mean Corp Hgb Conc 32.9 g/dL (32-36); Mean Corpuscular Hgb 29.6 pg (27.0-32.0); Mean Platelet Vol. 11.7 fl (6.2-12.0); Monocyte# 0.96 X10^3/uL; Monocyte% 4.6 % (0-10); NRBC Flagged by Analyzer 0 % (0-5); Neutrophil # 18.45 X10^3/uL (2.7-7.7); Neutrophil % 87.9 % (47-70); Platelet Count 206 K/mm3 (150-450); RBC Distribution Width CV 14.4 % (11.6-14.6); RBC Distribution Width SD 47.6 fl (35.1-43.9); Red Blood Count 3.89 M/mm3 (4.6-6.2)
[2024-01-26 07:52] LABS: Anion Gap 9 (5-15); BUN 27 mg/dL (7-18); BUN/Creat Ratio 20.9 RATIO (10-20); Chloride 107 mmol/L (98-107); Creatinine, Serum 1.29 mg/dL (0.70-1.30); EST Glomerular Filtration Rate 57 mL/min (>60); Est Glom Filt Rate - Afr Amer 69 mL/min (>60); Glucose 146 mg/dL (74-106); Potassium 3.1 mmol/L (3.5-5.1); Sodium Level 139 mmol/L (136-145)
[2024-01-26] MEDS: guaiFENesin 600 MG Tablet PO ×2 (07:53→21:06)
[2024-01-26] MEDS: Cilostazol 50 MG Tablet 100 MG PO ×2 (07:53→21:06)
[2024-01-26] MEDS: Aspirin 81 MG TAB.CHEW PO (07:53)
[2024-01-26] MEDS: Pantoprazole Sodium 40 MG Tablet PO (07:53)
[2024-01-26] MEDS: Tamsulosin HCl 0.4 MG Capsule PO (07:53)
[2024-01-26] MEDS: Isosorbide Mononitrate 30 MG Tablet PO (07:53)
[2024-01-26] MEDS: predniSONE 20 MG Tablet 40 MG PO (07:53)
[2024-01-26] MEDS: Metoprolol Tartrate 25 MG Tablet PO ×2 (09:55→21:06)
[2024-01-26] MEDS: Vancomycin Trough/Random Due 1 LAB MC (14:25)
--- NOTE | 2024-01-26 14:51 | CHAPLAIN ---
Type of Pastoral Visit _x__ Initial Visit ___ Follow-up Visit ___ On-call Visit ___ General Patient Visit ___ Spiritual Assessment ___ Family Conference ___ Bereavement ___ Rapid Response ___ Code Blue ___ Other (describe below) Pastoral Care Referral From _x__ Patient ___ Family ___ Nurse ___ Physician ___ Senior Php Web Developer ___ Ssn[employer]Ss[employer] Assistant Navigator ___ Other (describe below) Sacrament/Intervention _x__ Active listening ___ Anointing ___ Bahai ___ Bereavement ___ Communion _x__ Celia exploration ___ ___ Life review _x__ Prayer ___ Reconciliation ___ Sacrament of Sick _x__ Supportive presence ___ Wedding ___ Other (describe below) Pastoral Comments patient is waiting for transfer to another hospital for heart surgery; pt admits to anxiety feelings and is tearful during the visit; pt reviews his health and reports of the deaths of his friends; pt is thinking about his survival and being in a larger hospital in a large [facility]; pt has sons and a grandson that help him 'who are working'; pt is asked about what helps to bring calm and hope to his life; pt is asked about the role of celia and God in his life; pt refers to his childhood and going to mormonism with my grandparents and this offers his acknowledgement of celia and trust in God; pt welcomes prayers and the presence of this mutual fund accountant to talk with him;
[2024-01-26 15:50] LABS: Vancomycin, Trough Level 11.6 ug/mL (5.0-15.0)
--- NOTE | 2024-01-26 16:10 | PCM.RX.CS ---
Consult Antibiotic Management Pharmacy has been consulted to manage selected antibiotic: Vancomycin Type of Intervention Type of Consult: Follow-up Suspected Infection Suspected Infection: Sepsis Prior Doses of Antibiotics Prior Doses of Antibiotics Received/Current Regimen: Vancomycin 500 mg IV last dose given 01/28/24 @ 0330 Labs Labs: Sodium 139 mmol/L (136-145) 01/26/24 07:02 Potassium 3.1 mmol/L (3.5-5.1) L 01/26/24 07:02 Chloride 107 mmol/L (98-107) 01/26/24 07:02 Carbon Dioxide 23.0 mmol/L (21.0-32.0) 01/26/24 07:02 Anion Gap 9 (5-15) 01/26/24 07:02 BUN 27 mg/dL (7-18) H 01/26/24 07:02 Creatinine 1.29 mg/dL (0.70-1.30) 01/26/24 07:02 Est GFR (MDRD) Af Amer 69 mL/min (>60) 01/26/24 07:02 Est GFR (MDRD) Non-Af 57 mL/min (>60) L 01/26/24 07:02 BUN/Creatinine Ratio 20.9 RATIO (10-20) H 01/26/24 07:02 Glucose 146 mg/dL (74-106) H 01/26/24 07:02 Vancomycin Trough 11.6 ug/mL (5.0-15.0) 01/26/24 15:15 Microbiology Microbiology: Microbiology 01/25/24 08:00 Urine, Clean Catch Urine Culture - Preliminary Culture exhibits no growth. 01/24/24 22:59 Sputum, Expectorated/Coughed Gram Stain - Final 01/24/24 22:59 Sputum, Expectorated/Coughed Respiratory Culture - Preliminary Appears to be normal respiratory andrew. Further studies to follow. 01/25/24 09:24 Mucosa - Nasopharyngeal Respiratory Panel (PCR) - Final 01/25/24 07:50 Urine, Random Legionella Antigen - Final 01/25/24 07:50 Urine, Random Streptococcus pneumoniae Antigen (M - Final 01/24/24 22:53 Mucosa - Nose SARS-CoV-2, Influenza & RSV (PCR) - Final Dosing Weight Weight used for dosin kg Estimated Creatinine Clearance Estimated Creatinine Clearance: ~ 40 Goal Trough Goal Trough: 15-20 mcg/mL Pharmacy Plan for Drug Dosing Pharmacy Plan for Drug Dosing: Vancomycin trough = 11.6, increase to 750 mg Q12H Pharmacy Service will continue to monitor and adjust dosing as required. Follow-Up Labs Follow-Up Labs: Trough: Vancomycin Date/Time Labs Ordered Labs to be done on [date and time ordered]: 01/28/24 @ 2665
[2024-01-26] MEDS: Vancomycin HCl 750 MG in 0.9% Normal Saline (250mL Bag) 250 ML 250 MG IV (16:29)
--- NOTE | 2024-01-26 18:23 | DS.PCM_ITS ---
Providers Date of Admission: 01/25/24 Primary Care Physician: Dr. Rex Lizama MD Consultations 01/25/24 03:30 Consult: [place] / Pulmonary Medicine Routine Consulting Provider: Intensivists/Pulmonary Med Reason for Consult: Sepsis, PNA, AE COPD; on BiPAP, AE CHF and Elevated Troponin. EMERGENT Consult: No MD Notified: Yes Date Notified: 01/25/24 Time Notified: 06:44 Method of Notification: Text Reason For Visit: AE COPD, PNA, SEPSIS & ELEVATED TROPONIN 2/2 Diagnosis Discharge Diagnosis (1) Sepsis: Status: Acute Code(s): A41.9 - Sepsis, unspecified organism Qualifiers: Sepsis type: sepsis due to unspecified organism Sepsis acute organ dysfunction status: with acute organ dysfunction Severe sepsis acute organ dysfunction type: acute respiratory failure Acute respiratory failure type: u nspecified Severe sepsis shock status: without septic shock Qualified Code(s): A41.9 - Sepsis, unspecified organism; R65.20 - Severe sepsis without septic shock; J96.00 - Acute respiratory failure, unspecified whether with hypoxia or hypercapnia (2) Pneumonia: Status: Acute Code(s): J18.9 - Pneumonia, unspecified organism Qualifiers: Pneumonia type: due to unspecified organism Laterality: bilateral Lung location: unspecified part of lung Qualified Code(s): J18.9 - Pneumonia, unspecified organism (3) COPD with acute exacerbation: Status: Chronic Code(s): J44.1 - Chronic obstructive pulmonary disease with (acute) exacerbation (4) Acute hypoxic on chronic hypercapnic respiratory failure: Status: Acute Code(s): J96.01 - Acute respiratory failure with hypoxia; J96.12 - Chronic respiratory failure with hypercapnia (5) Leukocytosis: Status: Acute Code(s): D72.829 - Elevated white blood cell count, unspecified Qualifiers: Leukocytosis type: unspecified Qualified Code(s): D72.829 - Elevated white blood cell count, unspecified (6) Lactic acidosis: Status: Acute Code(s): E87.20 - Acidosis, unspecified (7) Pulmonary edema: Status: Acute Code(s): J81.1 - Chronic pulmonary edema Qualifiers: Chronicity: acute Qualified Code(s): J81.0 - Acute pulmonary edema (8) Heart failure, systolic, chronic, etiology unknown: Status: Chronic Code(s): I50.22 - Chronic systolic (congestive) heart failure (9) D-dimer, elevated: Status: Acute Code(s): R79.89 - Other specified abnormal findings of blood chemistry Plan NSTEMI * Developed chest pain while he was here and initial troponins went down but only to go up significantly up to 14,834. * Pt noted to have multivessel disease back in November and was transferred to [facility] for a bypass. Did review records from [facility] And patient did see CT surgery, vascular surgery. Patient states that he saw Dr. Murrell earlier this week who the patient states referred him to cardiothoracic surgeon at [facility]. I discussed the case with Dr. Santiago who did his heart cath in November and would be available for discussion with the accepting facility if necessary. I reached out to [facility] about initiating transfer with this non-STEMI. * repeat echo shows an EF of 50%, severe focal aortic valve calcification, +1 aortic valve insufficiency, moderate to severe aortic stenosis. * on ASA, atorvastatin. On therapeutic enoxaparin. * DW Dr. Santiago, who recommends transfer. I call [facility] for transfer and spoke with Dr. Pringle, who agreed to accept the patient for transfer. Possible Sepsis * SIRS 3/4 (HR 132, RR 42, WBC 16.8), qSOFA 2 (BP 97/72, RR 42) * pt did not receive 30cc/kg of IVF due to CHF. * on pip/tazo and vancomycin. Follow up cultures. * Etiology unclear: possible pneumonia, but cannot parse out at this time given CHF. Additionally, cannot determine if pt does indeed have an infection at this time. Through [employer], WBCs have chronically been elevated. * Follow up SCx, BCx, Strep and legionella antigens, UA, UCx. * [facility] consult AECOPD * on methylpred and BDs. Acute HFrEF: * Echo on 12/09: EF 45% * Did receive 40 of IV furosemide in ED. Patient also did receive an additional dose on the . Patient was tachypneic and did require BiPAP temporarily. Acute hypercapnic respiratory failure * improved. Did require BiPAP, but since weaned down. Elevated d-dimer * 1.67 present on admission * CTA of the chest negative for PE. Duplex lower extremities negative. Discontinue therapeutic enoxaparin. Chronic conditions: * Hyperlipidemia: statintin. * PAD: AAA s/p endovascular stent graft * BPH: tamsulosin VTE prophylaxis: Not indicated as patient is anticoagulated Awaiting on transfer to [facility]. DW patient's son at bedside. Greater than 75 minutes of which greater than 50% of time was coordinating care and guards to facilitating transfer, discussing with specialists. Medications at Discharge Home Medications albuterol sulfate 90 mcg/actuation aerosol inhaler 2 puff inhalation Q4H PRN PRN shortness of breath or wheezing 12/10/23 aspirin 81 mg capsule 81 mg PO DAILY heart disease 12/10/23 cilostazol 100 mg tablet 100 mg PO BID for stents 12/10/23 rosuvastatin 10 mg tablet 10 mg PO DAILY heart 12/10/23 tamsulosin 0.4 mg capsule 0.4 mg PO DAILY urinary retention 12/10/23 chlorhexidine gluconate 0.12 % mouthwash 15 ml PO DAILY surgery 01/25/24 metoprolol tartrate 25 mg tablet 25 mg PO DAILY heart 01/25/24 mupirocin 2 % topical ointment 1 applic topical TID surgery 01/25/24 rosuvastatin 40 mg tablet 40 mg PO DAILY heart 01/25/24 spironolactone 25 mg tablet 25 mg PO DAILY heart 01/25/24 Hospital Course Operations None Summary of Care Provided Minutes Spent on Discharge: 60 Hospital Course: Patient presents with shortness of breath. Initially concern for sepsis given lactic acidosis and leukocytosis, however seem less likely the patient was septic but more likely having heart failure. While he was here he developed chest pain and his troponins went up to 14,000. Patient been seen here previously at the end of November and was noted to have multivessel disease and transferred to [facility] at that time. He was seen by cardiothoracic surgery but under unclear circumstances he left AGAINST MEDICAL ADVICE. He did follow-up with the cardiothoracic surgeon later who referred him to a cardiothoracic surgeon at [facility]. I reached out to [facility] on the and the patient was excepted by Dr. Pringle. Patient was later discharged to [facility] in stable condition. Case was discussed with the patient's son earlier in the day. Weight / BMI Weight Weight: 59.421 kg Body Mass Index (BMI) 19.8 ABG / Lab / Microbiology Data 01/26/24 07:02 01/26/24 07:02 Microbiology: Microbiology 01/24/24 23:03 Blood Culture (Wb) - Anticubital Right Blood Culture - Preliminary No growth in 48 hours. 01/25/24 08:00 Urine, Clean Catch Urine Culture - Final Culture exhibits no growth. 01/24/24 22:59 Sputum, Expectorated/Coughed Gram Stain - Final 01/24/24 22:59 Sputum, Expectorated/Coughed Respiratory Culture - Final 01/25/24 09:24 Mucosa - Nasopharyngeal Respiratory Panel (PCR) - Final 01/25/24 07:50 Urine, Random Legionella Antigen - Final 01/25/24 07:50 Urine, Random Streptococcus pneumoniae Antigen (M - Final 01/24/24 22:53 Mucosa - Nose SARS-CoV-2, Influenza & RSV (PCR) - Final Meaningful Use Info Meaningful Use Meaningful Use Diagnoses (Choose all that apply): AMI AMI/Post PCI/Angioplasty Aspirin given w/in 24hrs of arrival?: Yes ASA at discharge?: Yes Statins at discharge?: Yes Colten/ARB at discharge?: No Reason Colten/ARB not ordered:: Hypotension Beta Eris at discharge?: Yes Done w/ Acute ND measure.: Yes Ischemic Stroke Statin Dosing Therapy Reference: STATIN DOSE THERAPY REFERENCE: * Patients > 75 years receive moderate or high dose statin therapy. * Patients 75 years or YOUNGER should receive HIGH intensity statin dose unless contraindicated. You will be required to document reason for non-treatment if statin daily dose does not meet guidelines. HIGH DOSE STATIN THERAPY DAILY Atorvastatin > than or = to 40 mg Rosuvastatin > than or = to 20 mg Amlodipine + Atorvastatin > than or = to 2.5/40 mg Ezetimibe + Simvastatin 10/80 mg Simvastatin 80mg Discharge Plan Admission Admit Date/Time: 01/25/24 02:22 Attending Provider: Pablo Noel Primary Care Provider: Rex Lizama Consulting Providers: Isreal Tovar Discharge Orders/Prescriptions Prescriptions: No Action albuterol sulfate 90 mcg/actuation HFA aerosol inhaler 2 puff INHALATION Q4H PRN PRN (Reason: shortness of breath or wheezing) cilostazol 100 mg tablet 100 mg PO BID tamsulosin 0.4 mg capsule 0.4 mg PO DAILY rosuvastatin 10 mg tablet 10 mg PO DAILY aspirin 81 mg capsule 81 mg PO DAILY rosuvastatin 40 mg tablet 40 mg PO DAILY spironolactone 25 mg tablet 25 mg PO DAILY Patient Comments: just ordered not started yet metoprolol tartrate 25 mg tablet 25 mg PO DAILY Patient Comments: did not brass pickler Rx recently ordered mupirocin 2 % ointment 1 applic topical TID Patient Comments: ordered by didn't brass pickler yet. Dr marcos chlorhexidine gluconate 0.12 % mouthwash 15 ml PO DAILY Patient Comments: for surgery Referrals / Follow Up: Rex Lizama MD [Primary Care Provider] - Disposition Disposition (needs filled in before D/C Order can be placed): DC/Tx to Another Type of HCF Charges/Coding Visit Charges Inpatient E&M: 64181 Disch Hosp >30min
--- NOTE | 2024-01-26 18:37 | NURSING ---
report called to YAYO Morales at [facility] main [place] unit [id number]
--- NOTE | 2024-01-26 21:01 | CPS ---
Patient refused PAP therapy for the night.
[2024-01-26] MEDS: Atorvastatin Calcium 20 MG Tablet PO (21:06)
--- NOTE | 2024-01-26 21:57 | NURSING ---
[facility]- [facility] arrived to unit to transport pt to [facility], report given by this RN, transfer papers copied.
== END 2024-01-26 22:10 | disposition short-term general hospital (02) | DRG 871 ==
LOC: ED 01-25 02:12 → ICU 01-25 02:33
PROVIDERS: Internal Medicine Critical Care Medicine; Admitting Provider Internal Medicine; Emergency Provider Emergency Medicine; PCP Family Medicine
DX: A41.9 Sepsis, unspecified organism (principal); J96.01 Acute respiratory failure with hypoxia; I50.23 Acute on chronic systolic (congestive) heart failure; I21.A1 Myocardial infarction type 2; J18.9 Pneumonia, unspecified organism; J96.02 Acute respiratory failure with hypercapnia; E87.29 Other acidosis; J44.0 Chronic obstructive pulmonary disease with (acute) lower respiratory infection; J44.1 Chronic obstructive pulmonary disease with (acute) exacerbation; I11.0 Hypertensive heart disease with heart failure; E11.65 Type 2 diabetes mellitus with hyperglycemia; Z95.828 Presence of other vascular implants and grafts; I25.10 Atherosclerotic heart disease of native coronary artery without angina pectoris; E78.5 Hyperlipidemia, unspecified; I25.2 Old myocardial infarction; R65.20 Severe sepsis without septic shock; D72.829 Elevated white blood cell count, unspecified; M19.90 Unspecified osteoarthritis, unspecified site; Z87.891 Personal history of nicotine dependence; Z79.899 Other long term (current) drug therapy; Z79.82 Long term (current) use of aspirin; N40.0 Benign prostatic hyperplasia without lower urinary tract symptoms; R79.89 Other specified abnormal findings of blood chemistry; R79.1 Abnormal coagulation profile
CPT/HCPCS: 36415; 36600; 71045; 71275; 80048; 80202; 81001; 82803; 83036; 83605; 83880; 84484; 85025; 85379; 87040; 87070; 87086; 87205; 87449; 87631; 87633; 93005; 93306; 93970; 94002; 94003; 94640; 99285; 99406; Q9957; A4216; J0696; J1938

== ENCOUNTER 2024-04-30 20:52 | Inpatient (IN) | payer MEDICARE, SELFPAY ==
[2024-04-30 20:53] VITALS: BP 112/43; PULSE 91; RESP 20; TEMP 36.9; O2SAT 98; BMI 21.4
[2024-04-30 23:22] VITALS: BP 136/54; PULSE 76; RESP 17; O2SAT 98
--- NOTE | 2024-04-30 23:22 | EKG12_ITS ---
Test Reason : DYSRHYTHMIA Blood Pressure : */* mmHG Vent. Rate : 79 BPM Atrial Rate : 79 BPM P-R Int : 170 ms QRS Dur : 128 ms QT Int : 430 ms P-R-T Axes : 33 76 56 degrees QTcB Int : 493 ms Normal sinus rhythm Right bundle branch block Possible Inferior infarct Abnormal ECG Confirmed by GERMÁN SLAUGHTER, OLVIN ([id number]), food expeditor ANIVAL COTTRELL ([id number]) on 05/02/2024 6:36:12 AM Referred By: Confirmed By: OLVIN DUNLAP MD
[2024-04-30 23:55] LABS: Absolute Lymphocyte Count 2.71 X10^3/uL (0.83-4.51); Absolute Neutrophil Count 5.4 X10^3/uL (2.0-7.7); Basophil# 0.06 X10^3/uL; Eosinophil# 0.28 X10^3/uL; Hematocrit 18.4 % (40-54); Lymphocyte # 2.71 X10^3/ul (0.83-4.51); Mean Corp Hgb Conc 29.9 g/dL (32-36); Mean Corpuscular Hgb 25.6 pg (27.0-32.0); Mean Corpuscular Volume 85.6 fL (80-94); Mean Platelet Vol. 10.7 fl (6.2-12.0); Monocyte# 0.82 X10^3/uL; NRBC Flagged by Analyzer 0 % (0-5); Neutrophil # 5.43 X10^3/uL (2.7-7.7); POSITIVE COUNT YES; Platelet Count 234 K/mm3 (150-450); RBC Distribution Width CV 15.2 % (11.6-14.6); RBC Distribution Width SD 47.5 fl (35.1-43.9); Red Blood Count 2.15 M/mm3 (4.6-6.2); White Blood Count 9.3 K/mm3 (4.4-11.0)
[2024-05-01] VITALS (21 sets, daily range): BP systolic 104–144; BP diastolic 43–72; PULSE 65–81; RESP 16–19; TEMP 36.4–37; O2SAT 96–100; BMI 20.8
[2024-05-01 00:04] LABS: International Normalized Ratio 1.6; Prothrombin Time (Protime)PT. 18.6 SECONDS (11.7-14.9)
[2024-05-01 00:05] LABS: Partial Thromboplast Time 33.7 Seconds (24.1-36.2)
[2024-05-01 00:10] LABS: Anion Gap 7 (5-15); BUN 31 mg/dL (7-18); BUN/Creat Ratio 21.4 RATIO (10-20); Calcium,Total 8.7 mg/dL (8.5-10.1); Chloride 109 mmol/L (98-107); Creatinine, Serum 1.45 mg/dL (0.70-1.30); EST Glomerular Filtration Rate 50 mL/min (>60); Est Glom Filt Rate - Afr Amer 61 mL/min (>60); Estimated Creatinine Clearance 38.65 ml/min; Glucose 109 mg/dL (74-106); Potassium 4.1 mmol/L (3.5-5.1); Sodium Level 139 mmol/L (136-145)
--- NOTE | 2024-05-01 00:14 | EDS_ITS ---
HPI History of Present Illness Chief Complaint: Abn Labs Narrative Narrative: Chief complaint and HPI: Abnormal lab/anemia. 78-year-old male with recent CABG and valvular surgery at [facility] 2 months ago on Eliquis, HTN, HLD presents for evaluation of anemia. Patient states that he had a routine visit with his PCP who ordered blood work today. He states that he got a call this evening stating that his hemoglobin was 5 and that he needed to present to the emergency department. Patient does endorse some fatigue but states this has been ongoing since his surgery. He denies any lightheadedness, chest pain, shortness of breath. Denies any fever, chills, abdominal pain, nausea, vomiting, diarrhea. Patient denies any dark or bloody bowel movements. Review of systems: See HPI Medications: As listed on the chart Allergies: As listed on the chart PFSH: Per chart Vital signs: As listed on the chart. Reviewed. Physical exam: Gen: A&O x3, NAD Head: Normocephalic, atraumatic Eyes: No sclera icterus, conjunctiva clear ENT: Moist mucous membranes Neck: Trachea midline, No JVD CV: RRR, no peripheral edema, midline sternotomy scar healing well Resp: Lungs CTA BL, no w/r/c GI: Abd soft, non-distended, non-tender, no r/r/g Rectal: Normal external examination. No evidence of hemorrhoids or fissures. Normal tone and sensation. No masses, fluctuance, or tenderness. No pain out of proportion. Brown stool. Musc: Full ROM, no deformity Skin: Warm, dry, pale Neuro: Alert, oriented, grossly intact, sensation intact Psych: Cooperative, appropriate mood and affect [facility] Medical History Elevated troponin Hyperlipidemia Hypertension COPD (chronic obstructive pulmonary disease) Non-ST elevated myocardial infarction (non-STEMI) Home Medications ?Medication ?Instructions ?Recorded ?Last Taken ?Type albuterol sulfate 90 mcg/actuation 2 puff inhalation Q4H PRN PRN 12/10/23 12/09/23 History aerosol inhaler shortness of breath or wheezing aspirin 81 mg capsule 81 mg PO DAILY heart disease 12/10/23 Unknown History cilostazol 100 mg tablet 100 mg PO BID for stents 12/10/23 12/09/23 History tamsulosin 0.4 mg capsule 0.4 mg PO DAILY urinary retention 12/10/23 12/09/23 History mupirocin 2 % topical ointment 1 applic topical TID surgery 01/25/24 Unknown History rosuvastatin 40 mg tablet 40 mg PO DAILY heart 01/25/24 Unknown History spironolactone 25 mg tablet 25 mg PO DAILY heart 01/25/24 Unknown History apixaban 5 mg tablet (Eliquis) 5 mg PO BID 04/30/24 Unknown History metoprolol succinate 25 mg 25 mg PO DAILY 04/30/24 Unknown History tablet,extended release 24 hr pantoprazole 20 mg tablet,delayed 20 mg PO DAILY 04/30/24 Unknown History release Allergy/AdvReac Type Severity Reaction Status Date / Time pseudoephedrine Allergy Mild Hives Verified 04/30/24 23:42 Family History Son Heart disease Surgical History H/O endovascular stent graft for abdominal aortic aneurysm Social History Smoking Status: Former smoker Tobacco: How many years used: 57 EXAM Physical Exam Const Vital Signs: 04/30/24 20:53 04/30/24 23:22 04/30/24 23:43 Temperature 98.4 F Temperature Source Temporal Pulse Rate 91 76 Respiratory Rate 20 H 17 Respiratory Effort Normal Non-Labored Respiratory Pattern Normal Blood Pressure 112/43 L 136/54 H Blood Pressure Mean 66 81 Pulse Ox 98 98 Oxygen Delivery Method Room Air Room Air MDM MDM MDM Narrative Medical decision making narrative: 78-year-old male with recent CABG and valvular surgery at [facility] 2 months ago on Eliquis, HTN, HLD presents for evaluation of anemia. Patient sta felicitas he had outpatient labs that showed a hemoglobin of 5. Currently asymptomatic other than fatigue of 2 months. On Eliquis. Differential diagnosis includes but is not limited to supratherapeutic coagulation studies, GI bleed, anemia. Rectal exam performed and showed brown stool. Laboratory workup ordered. INR 1.6. BMP shows renal insufficiency with creatinine of 1.45. Fecal occult negative. CBC without leukocytosis. Patient has anemia with hemoglobin of 5.5. Platelet count unremarkable. Patient will require transfusion and warrant admission for further anemia workup as there is no clear source at this time. 2 units packed red blood cells ordered. Patient was educated on all his results and the findings. He is agreement to transfusion and admission. Patient was discussed with the hospitalist Dr. Gomez who accepted admission. 30 minutes of critical care time utilized in managing the patient. This is due to high probability of deterioration of the patient based on the patient's condition and excludes any separately billable procedures. Impression: 1. Acute severe anemia requiring transfusion 2. Renal insufficiency 3. Anticoagulation on Eliquis Lab Data Labs: Laboratory Results - last 24 hr 04/30/24 23:34 WBC 9.3 RBC 2.15 L Hgb 5.5 L* Hct 18.4 L MCV 85.6 MCH 25.6 L MCHC 29.9 L RDW Std Deviation 47.5 H RDW Coeff of Mike 15.2 H Plt Count 234 MPV 10.7 Immature Gran % (Auto) PUNCHBOARD STUFFER Neut % (Auto) P[employer]CH[employer]ARD STUFFER Lymph % (Auto) P[employer]CHBOARD STUFFER [place] % (Auto) P[employer]CHBOARD STUFFER Eos % (Auto) PUNCHBOARD STUFFER Baso % (Auto) PUNCHBOARD STUFFER Absolute Neuts (auto) 5.4 Absolute Lymphs (auto) 2.71 Nucleated RBC % 0 Diff Path Review September foll PT 18.6 H INR 1.6 APTT 33.7 Sodium 139 Potassium 4.1 Chloride 109 H Carbon Dioxide 23.0 Anion Gap 7 BUN 31 H Creatinine 1.45 H Estim Creat Clear Calc 38.65 Est GFR (MDRD) Af Amer 61 Est GFR (MDRD) Non-Af 50 L BUN/Creatinine Ratio 21.4 H Glucose 109 H Calcium 8.7 Discharge Plan Triage Chief Complaint: Abn Labs ED Provider: Ebenezer Rodriguez Dx/Rx/DC Orders Prescriptions: No Action albuterol sulfate 90 mcg/actuation HFA aerosol inhaler 2 puff INHALATION Q4H PRN PRN (Reason: shortness of breath or wheezing) cilostazol 100 mg tablet 100 mg PO BID tamsulosin 0.4 mg capsule 0.4 mg PO DAILY aspirin 81 mg capsule 81 mg PO DAILY rosuvastatin 40 mg tablet 40 mg PO DAILY spironolactone 25 mg tablet 25 mg PO DAILY Patient Comments: just ordered not started yet mupirocin 2 % ointment 1 applic topical TID Patient Comments: ordered by didn't medicinal plant picker yet. Dr marcos metoprolol succinate 25 mg tablet extended release 24 hr 25 mg PO DAILY Eliquis 5 mg tablet 5 mg PO BID pantoprazole 20 mg tablet,delayed release (/EC) 20 mg PO DAILY Primary Care Provider: Rex Lizama Referrals: Rex Lizama MD [Primary Care Provider] - Print Language: Persian
[2024-05-01 00:18] LABS: Hemoglobin 5.5 g/dL (13.0-16.5)
[2024-05-01 00:19] LABS: Differential Indicated SCAN CRITERIA MET
--- NOTE | 2024-05-01 00:32 | PCM.HP.STD ---
HPI - General General Date of Admission: 05/01/24 HPI Narrative TERRANCE RODRIGUEZ, is a 78 M who presents to the hospital with anemia. He had outpatient lab work done by his PCP who told him to present to the hospital because his hemoglobin was 5. On recheck here in the ER is 5.5. Hemoccult was negative and currently the etiology of his anemia is unclear. He denies any abdominal pain and denies any dark stools or bloody stools. Denies any nausea or vomiting or hematemesis. He is a little bit fatigued. No recent illnesses and no family history of anemia that he can recall. Recently underwent of 5 vessel CABG as well as replacement of his aortic and mitral valves though is unclear whether or not he has mechanical valve or not. No clicks were heard on exam. [facility] Medical History Elevated troponin Hyperlipidemia Hypertension COPD (chronic obstructive pulmonary disease) Non-ST elevated myocardial infarction (non-STEMI) Home Medications ?Medication ?Instructions ?Recorded ?Last Taken ?Type albuterol sulfate 90 mcg/actuation 2 puff inhalation Q4H PRN PRN 12/10/23 12/09/23 History aerosol inhaler shortness of breath or wheezing aspirin 81 mg capsule 81 mg PO DAILY heart disease 12/10/23 Unknown History cilostazol 100 mg tablet 100 mg PO BID for stents 12/10/23 12/09/23 History tamsulosin 0.4 mg capsule 0.4 mg PO DAILY urinary retention 12/10/23 12/09/23 History rosuvastatin 40 mg tablet 40 mg PO DAILY heart 01/25/24 Unknown History apixaban 5 mg tablet (Eliquis) 5 mg PO BID 04/30/24 Unknown History metoprolol succinate 25 mg 25 mg PO DAILY 04/30/24 Unknown History tablet,extended release 24 hr pantoprazole 20 mg tablet,delayed 20 mg PO DAILY 04/30/24 Unknown History release empagliflozin 10 mg tablet 10 mg PO DAILY dm 05/01/24 Unknown History (Jardiance) valsartan 40 mg tablet 20 mg PO BID bp 05/01/24 Unknown History Allergy/AdvReac Type Severity Reaction Status Date / Time pseudoephedrine Allergy Mild Hives Verified 04/30/24 23:42 Family History Son Heart disease Surgical History H/O endovascular stent graft for abdominal aortic aneurysm Social History Smoking Status: Former smoker Tobacco: How many years used: 57 ROS Constitutional Constitutional: Reports fatigue; Denies chills, fever(s) or malaise Eyes Eyes: Denies blurry vision ENT HEENT: Denies headache(s) or nasal discharge Cardiovascular Cardiovascular: Denies chest pain, dyspnea on exertion or syncope Respiratory/Chest Respiratory/Chest: Denies cough, shortness of breath at rest or shortness of breath with exertion Gastrointestinal Gastrointestinal: Denies coffee ground emesis, constipation, diarrhea, hematemesis, hematochezia, melena, nausea or vomiting Genitourinary Genitourinary: Denies dysuria Neurologic Neurologic: Denies focal weakness, numbness or tremor(s) Psychiatric Psychiatric: Denies anxiety or depression Vital Signs Vital Signs Vital Signs: 04/30/24 20:53 04/30/24 23:22 04/30/24 23:43 Temperature 98.4 F Temperature Source Temporal Pulse Rate 91 76 Respiratory Rate 20 H 17 Respiratory Effort Normal Non-Labored Respiratory Pattern Normal Blood Pressure 112/43 L 136/54 H Blood Pressure Mean 66 81 Pulse Ox 98 98 Oxygen Delivery Method Room Air Room Air Weight Weight: 141 lb 3.2 oz Body Mass Index (BMI) 21.4 Physical Exam Narrative General: Alert, Oriented x3, Cooperative, No apparent distress HEENT: Atraumatic, PERRLA, EOMI, Normocephalic Oral: Moist Mucosa Neck: Supple, No JVD Lungs: Diminished, Normal air movement, No rhonchi, No wheeze, No rales Cardiovascular: Regular rate, Regular Rhythm, Normal S1, Normal S2, No murmurs Abdomen: Soft, Non Tender, Non-Distended, No Hepato-splenomegaly Extremities: No edema, Capillary Refill Less than 3 Seconds Skin: No rashes, No breakdown, pale Musculoskeletal: No Tenderness to Palpation of Joints or Extremities Neurological: No focal neurological deficits, Motor Exam 5/5 strength throughout, Sensory exam intact to light touch and pain Psych/Mental Status: Normal Affect, Appropriate Results Lab / Micro Data 04/30/24 23:34 04/30/24 23:34 Labs: Laboratory Results - last 24 hr 04/30/24 23:34: WBC 9.3, RBC 2.15 L, Hgb 5.5 L*, Hct 18.4 L, MCV 85.6, MCH 25.6 L, MCHC 29.9 L, RDW Std Deviation 47.5 H, RDW Coeff of Mike 15.2 H, Plt Count 234, MPV 10.7, Immature Gran % (Auto) POULTRY PACKER, Neut % (Auto) POULTRY PACKER, Lymph % (Auto) POULTRY PACKER, [place] % (Auto) POULTRY PACKER, Eos % (Auto) POULTRY PACKER, Baso % (Auto) POULTRY PACKER, Absolute Neuts (auto) 5.4, Absolute Lymphs (auto) 2.71, Nucleated RBC % 0, Diff Path Review September, PT 18.6 H, INR 1.6, APTT 33.7, Sodium 139, Potassium 4.1, Chloride 109 H, Carbon Dioxide 23.0, Anion Gap 7, BUN 31 H, Creatinine 1.45 H, Estim Creat Clear Calc 38.65, Est GFR (MDRD) Af Amer 61, Est GFR (MDRD) Non-Af 50 L, BUN/Creatinine Ratio 21.4 H, Glucose 109 H, Calcium 8.7 Micro: Microbiology 04/30/24 23:30 Stool Stool Occult Blood (ZEINAB) - Final Assessment & Plan Assessment/Plan (1) Anemia: PLAN: Plan 1. Anemia/GERD ? Unclear etiology ? Will place him on a clear liquid diet and start him on IV Protonix 40 mg twice daily ? Will obtain an iron panel as well as an LDH and haptoglobin ? Will add on the liver panel tomorrow for bilirubin ? Will transfuse 2 units and recheck hemoglobin in the morning 2. Severe aortic stenosis status post valve replacement/CAD status post 5 vessel CABG/essential HTN/HLD/peripheral artery disease ? Will hold his home Eliquis and aspirin given the possibility of a bleed despite a negative fecal occult ? Continue with cilostazol as well as metoprolol and Crestor ? He has had stents placed in his femoral arteries 3. BPH ? Stable ? Continue with Flomax DVT: SCDs 75 minutes was spent on direct patient care, including documentation as well as chart review and collaboration with colleagues Charges/Coding Visit Charges Inpatient E&M: 59356 Init Hosp L3
[2024-05-01 00:54] LABS: AST(SGOT) 13 U/L (15-37); Alanine Aminotransfer ALT/SGPT 16 U/L (16-61); Albumin, Serum 3.4 g/dL (3.2-5.0); Alkaline Phosphatase 59 U/L (45-117); Bilirubin, Direct 0.09 mg/dL (0.00-0.30); Globulin 3.4 g/dL (2.2-4.2); LDH 186 U/L (87-241); Protein, Total 6.8 g/dL (6.4-8.2)
[2024-05-01 01:00] LABS: Ferritin 10 ng/mL (26-388); Iron 166 ug/dL (65-175); Iron Binding Capacity,Total 426 ug/dL (250-450)
[2024-05-01 01:37] LABS: Platelet Count 231 K/mm3 (150-450); RET-HE 19.9 pg (30-35)
[2024-05-01] MEDS: Metoprolol(XL)Succ 25 MG Tablet PO (07:39)
[2024-05-01] MEDS: Cilostazol 50 MG Tablet 100 MG PO ×2 (07:40→21:50)
[2024-05-01] MEDS: Tamsulosin HCl 0.4 MG Capsule PO (07:40)
--- NOTE | 2024-05-01 08:06 | PN.HOSP_ITS ---
Reason for Visit Reason for Visit: Diagnoses Anemia, unspecified (05/01/24) Subjective Subjective Denies any shortness of breath. Objective Data Objective Data Vital Signs: Vital Signs Temp Pulse Resp BP Pulse Ox O2 Del Method 36.4 C L 75 16 125/51 H 99 Room Air 05/01/24 07:32 05/01/24 07:39 05/01/24 07:32 05/01/24 07:32 05/01/24 07:32 05/01/24 07:32 Oxygen Delivery Method Room Air Weight: 62.1 kg Body Mass Index (BMI) 20.8 Intake & Output: Intake and Output for Last 24 Hours 04/29/24 04/30/24 05/01/24 23:59 23:59 23:59 Intake Total 500 / 500 Balance 500 / 500 Lab / Micro Data 05/01/24 10:31 05/01/24 10:31 Labs: Laboratory Results - last 24 hr 04/30/24 23:34: WBC 9.3, RBC 2.15 L, Hgb 5.5 L*, Hct 18.4 L, MCV 85.6, MCH 25.6 L, MCHC 29.9 L, RDW Std Deviation 47.5 H, RDW Coeff of Mike 15.2 H, Plt Count 234, MPV 10.7, Immature Gran % (Auto) TYPEWRITER ASSEMBLER, Neut % (Auto) TYPEWRITER ASSEMBLER, Lymph % (Auto) TYPEWRITER ASSEMBLER, [place] % (Auto) TYPEWRITER ASSEMBLER, Eos % (Auto) TYPEWRITER ASSEMBLER, Baso % (Auto) TYPEWRITER ASSEMBLER, Absolute Neuts (auto) 5.4, Absolute Lymphs (auto) 2.71, Nucleated RBC % 0, Diff Path Review September, Retic Count 3.30 H, Immature Retic Fraction 31.50 H, Retic Hgb Equivalent 19.9 L, PT 18.6 H, INR 1.6, APTT 33.7, Sodium 139, Potassium 4.1, Chloride 109 H, Carbon Dioxide 23.0, Anion Gap 7, BUN 31 H, Creatinine 1.45 H, Estim Creat Clear Calc 38.65, Est GFR (MDRD) Af Amer 61, Est GFR (MDRD) Non-Af 50 L, BUN/Creatinine Ratio 21.4 H, Glucose 109 H, Calcium 8.7, Iron 166, TIBC 426, Iron Saturation 39.0, Ferritin 10 L, Total Bilirubin 0.20, Direct Bilirubin 0.09, AST 13 L, ALT 16, Alkaline Phosphatase 59, Lactate Dehydrogenase 186, Total Protein 6.8, Albumin 3.4, Globulin 3.4, Blood Type A POSITIVE, Antibody Screen NEGATIVE, Crossmatch See Detail Micro: Microbiology 04/30/24 23:30 Stool Stool Occult Blood (ZEINAB) - Final Physical Exam Const alert and no apparent distress HEENT head/scalp atraumatic and moist oral mucous membranes Resp normal respiratory effort, no retractions, no use of accessory muscles and clear to auscultation bilaterally Cardio regular rate, regular rhythm, S1 normal heart sound and S2 normal heart sound GI normal to inspection, nondistended, normoactive bowel sounds, soft to palpation, non-tender and non-distended Assessment & Plan Assessment/Plan (1) Anemia: PLAN: Plan acute blood loss anemia * Hg 5.5, down from 11.5 on 01/26/24 * transfused 2 units PRBCs * Iron normal, but ferritin low. Normocytic. * LDH WNL, haptoglobin pending. Check B12, folate, TSH, hemoccult * Start iron gluconate. * Patient was asymptomatic just had some routine blood work that showed his anemia. Unclear if patient has GI losses but will follow-up on those studies. This could also related with his extensive surgery (CABG) that he had just few months ago. Severe aortic stenosis status post valve replacement/CAD status post 5 vessel CABG/essential HTN/HLD/peripheral artery disease * Will hold his home Eliquis and aspirin given the possibility of a bleed despite a negative fecal occult * Continue with cilostazol as well as metoprolol and Crestor * He has had stents placed in his femoral arteries BPH? Stable? Continue with Flomax DVT: SCDs Charges/Coding Visit Charges Inpatient E&M: 82243 Subs Hosp L2
[2024-05-01] MEDS: Pantoprazole Sodium 40 MG in 0.9% Normal Saline (100mL MB+) 100 ML 330 MG IV ×2 (09:24→22:13)
[2024-05-01] MEDS: Sodium Ferric Gluconat 125 MG in 0.9% Normal Saline 100 ML 110 MG IV (09:49)
[2024-05-01 10:40] LABS: Absolute Lymphocyte Count 2.27 X10^3/uL (0.83-4.51); Basophil# 0.07 X10^3/uL; Basophil% 0.7 % (0-1); Eosinophil# 0.27 X10^3/uL; Eosinophils% 2.9 % (0-5); Hematocrit 23.9 % (40-54); Hemoglobin 7.6 g/dL (13.0-16.5); Lymphocyte # 2.27 X10^3/ul (0.83-4.51); Lymphocyte % 24.1 % (19-41); Mean Corp Hgb Conc 31.8 g/dL (32-36); Mean Corpuscular Hgb 26.7 pg (27.0-32.0); Mean Corpuscular Volume 83.9 fL (80-94); Mean Platelet Vol. 9.8 fl (6.2-12.0); Monocyte# 0.76 X10^3/uL; Monocyte% 8.1 % (0-10); NRBC Flagged by Analyzer 0.2 % (0-5); Neutrophil % 63.6 % (47-70); Platelet Count 211 K/mm3 (150-450); RBC Distribution Width CV 14.6 % (11.6-14.6); RBC Distribution Width SD 44.8 fl (35.1-43.9); Red Blood Count 2.85 M/mm3 (4.6-6.2); White Blood Count 9.4 K/mm3 (4.4-11.0)
[2024-05-01 11:06] LABS: Anion Gap 4 (5-15); BUN 21 mg/dL (7-18); BUN/Creat Ratio 15.7 RATIO (10-20); Calcium,Total 8.6 mg/dL (8.5-10.1); Chloride 111 mmol/L (98-107); Creatinine, Serum 1.34 mg/dL (0.70-1.30); EST Glomerular Filtration Rate 55 mL/min (>60); Est Glom Filt Rate - Afr Amer 66 mL/min (>60); Estimated Creatinine Clearance 40.55 ml/min; Glucose 105 mg/dL (74-106); Sodium Level 139 mmol/L (136-145)
[2024-05-01 11:13] LABS: Vitamin B12 485 pg/mL (211-911)
--- NOTE | 2024-05-01 13:00 | CASEMGMT ---
RN CM Face to Face with patient for initial transition planning/care coordination assessment. RN CM introduced self and role at [facility]. Patient lying in bed, alert and oriented. Patient willing to participate in assessment and is able to answer all questions appropriately. Care providers, pharmacy, and demographics verified. Strata: 3 PCP: Dl Specialists: none Preferred Pharmacy: [facility] Insurance: Devoted Prescription Benefit: yes Living Will/HPOA: none LNOK: sons Living Arrangements: Patient states he lives with his 2 sons in a 2 story home with bed and bath on first floor. No steps to enter. Patient states he is independent at home. Transportation: self, son DME/HHC: Patient has shower chair. No previous HHC or SNF Patient wishes to discharge home, denies need for home health at this time. Patient states he has no further needs or concerns at this time. CM to follow for discharge planning needs that may arise. Disposition Plan: Patient to discharge home with family support and follow-up plans in place. Martine RODRIGUEZ, RN, CM
[2024-05-01 15:18] LABS: Pathologist Review Reviewed
[2024-05-01] MEDS: Atorvastatin Calcium 80 MG Tablet PO (21:50)
[2024-05-02 02:10] VITALS: BP 109/56; PULSE 76; RESP 16; TEMP 36.5; O2SAT 96
[2024-05-02 05:06] LABS: Haptoglobin 122 mg/dL (34-355)
[2024-05-02 07:30] LABS: Absolute Lymphocyte Count 1.76 X10^3/uL (0.83-4.51); Absolute Neutrophil Count 9.9 X10^3/uL (2.0-7.7); Basophil# 0.09 X10^3/uL; Basophil% 0.7 % (0-1); Eosinophil# 0.36 X10^3/uL; Eosinophils% 2.8 % (0-5); Hematocrit 24.7 % (40-54); Hemoglobin 7.7 g/dL (13.0-16.5); Lymphocyte # 1.76 X10^3/ul (0.83-4.51); Lymphocyte % 13.4 % (19-41); Mean Corp Hgb Conc 31.2 g/dL (32-36); Mean Corpuscular Hgb 26.4 pg (27.0-32.0); Mean Corpuscular Volume 84.6 fL (80-94); Mean Platelet Vol. 10.5 fl (6.2-12.0); Monocyte# 0.98 X10^3/uL; Monocyte% 7.5 % (0-10); NRBC Flagged by Analyzer 0 % (0-5); Neutrophil # 9.85 X10^3/uL (2.7-7.7); Neutrophil % 75.2 % (47-70); Platelet Count 235 K/mm3 (150-450); RBC Distribution Width CV 15.1 % (11.6-14.6); RBC Distribution Width SD 46.7 fl (35.1-43.9); Red Blood Count 2.92 M/mm3 (4.6-6.2); White Blood Count 13.1 K/mm3 (4.4-11.0)
--- NOTE | 2024-05-02 07:58 | PN.HOSP_ITS ---
Reason for Visit Reason for Visit: Diagnoses Anemia, unspecified (05/01/24) Subjective Subjective Feels well. No new events. Objective Data Objective Data Vital Signs: Vital Signs Temp Pulse Resp BP Pulse Ox O2 Del Method 36.5 C L 76 16 109/56 L 96 Room Air 05/02/24 02:10 05/02/24 02:10 05/02/24 02:10 05/02/24 02:10 05/02/24 02:10 05/02/24 02:10 Oxygen Delivery Method Room Air Weight: 62.1 kg Body Mass Index (BMI) 20.8 Intake & Output: Intake and Output for Last 24 Hours 04/30/24 05/01/24 05/02/24 23:59 23:59 23:59 Intake Total 1421 / 1421 110 / 110 Balance 1421 / 1421 110 / 110 Lab / Micro Data 05/02/24 06:29 05/01/24 10:31 Labs: Laboratory Results - last 24 hr 04/30/24 23:34: Diff Path Review Reviewed, Crossmatch See Detail 05/01/24 00:04: Haptoglobin 122 05/01/24 10:31: WBC 9.4, RBC 2.85 L, Hgb 7.6 L, Hct 23.9 L, MCV 83.9, MCH 26.7 L , MCHC 31.8 L D, RDW Std Deviation 44.8 H, RDW Coeff of Mike 14.6, Plt Count 211, MPV 9.8, Immature Gran % (Auto) 0.600, Neut % (Auto) 63.6, Lymph % (Auto) 24.1, [place] % (Auto) 8.1, Eos % (Auto) 2.9, Baso % (Auto) 0.7, Absolute Neuts (auto) 6.0, Absolute Lymphs (auto) 2.27, Nucleated RBC % 0.2, Sodium 139, Potassium 4.0, Chloride 111 H, Carbon Dioxide 24.0, Anion Gap 4 L, BUN 21 H, Creatinine 1.34 H, Estim Creat Clear Calc 40.55, Est GFR (MDRD) Af Amer 66, Est GFR (MDRD) Non-Af 55 L, BUN/Creatinine Ratio 15.7, Glucose 105, Calcium 8.6, Vitamin B12 485, Folate 33.50, TSH 1.120 05/02/24 06:29: WBC 13.1 H, RBC 2.92 L, Hgb 7.7 L, Hct 24.7 L, MCV 84.6, MCH 26.4 L, MCHC 31.2 L, RDW Std Deviation 46.7 H, RDW Coeff of Mike 15.1 H, Plt Count 235, MPV 10.5, Immature Gran % (Auto) 0.400, Neut % (Auto) 75.2 H, Lymph % (Auto) 13.4 L, [place] % (Auto) 7.5, Eos % (Auto) 2.8, Baso % (Auto) 0.7, Absolute Neuts (auto) 9.9 H, Absolute Lymphs (auto) 1.76, Nucleated RBC % 0 Micro: Microbiology 04/30/24 23:30 Stool Stool Occult Blood (ZEINAB) - Final Physical Exam Const alert and no apparent distress Resp normal respiratory effort, no retractions, no use of accessory muscles and clear to auscultation bilaterally Cardio regular rate, regular rhythm, S1 normal heart sound and S2 normal heart sound GI normal to inspection, nondistended, normoactive bowel sounds, soft to palpation, non-tender and non-distended Neuro oriented x3, CN's II-XII intact bilaterally, moves all extremities and no focal motor deficits Assessment & Plan Assessment/Plan (1) Anemia: PLAN: Plan acute blood loss anemia * Hg 5.5, down from 11.5 on 01/26/24. Stable x2 after 2 units of PRBCs. * Iron normal, but ferritin low. Normocytic. * LDH WNL, haptoglobin pending. Check B12, folate, TSH, WNL. hemoccult negative. * Start iron gluconate. * Patient was asymptomatic just had some routine blood work that showed his anemia. This could also related with his extensive surgery (CABG) that he had just few months ago. * Discharge with Ferrous sulfate. * Recommend that he have follow-up CBC in about a week's time Severe aortic stenosis status post valve replacement/CAD status post 5 vessel CABG/essential HTN/HLD/peripheral artery disease * Continue with cilostazol as well as metoprolol and Crestor * He has had stents placed in his femoral arteries * Resume his apixaban and aspirin. BPH? Stable? Continue with Flomax DVT: SCDs
[2024-05-02 08:00] VITALS: BP 111/49; PULSE 75; RESP 16; TEMP 36.6; O2SAT 97
[2024-05-02] MEDS: Sodium Ferric Gluconat 125 MG in 0.9% Normal Saline 100 ML 110 MG IV (08:58)
[2024-05-02 09:00] VITALS: PULSE 75
[2024-05-02] MEDS: Metoprolol(XL)Succ 25 MG Tablet PO (09:00)
[2024-05-02] MEDS: Tamsulosin HCl 0.4 MG Capsule PO (09:00)
[2024-05-02] MEDS: 0.9% Saline Lock 10 ML Syringe IV (09:00)
[2024-05-02] MEDS: Cilostazol 50 MG Tablet 100 MG PO (09:00)
[2024-05-02] MEDS: Pantoprazole Sodium 40 MG in 0.9% Normal Saline (100mL MB+) 100 ML 330 MG IV (11:06)
--- NOTE | 2024-05-02 11:10 | DS.PCM_ITS ---
Providers Date of Admission: 05/01/24 Primary Care Physician: Dr. Rex Lizama MD Reason For Visit: ANEMIA Diagnosis Discharge Diagnosis (1) Anemia: Status: Acute Code(s): D64.9 - Anemia, unspecified Plan acute blood loss anemia * Hg 5.5, down from 11.5 on 01/26/24. Stable x2 after 2 units of PRBCs. * Iron normal, but ferritin low. Normocytic. * LDH WNL, haptoglobin pending. Check B12, folate, TSH, WNL. hemoccult negative. * Start iron gluconate. * Patient was asymptomatic just had some routine blood work that showed his anemia. This could also related with his extensive surgery (CABG) that he had just few months ago. * Discharge with Ferrous sulfate. * Recommend that he have follow-up CBC in about a week's time Severe aortic stenosis status post valve replacement/CAD status post 5 vessel CABG/essential HTN/HLD/peripheral artery disease * Continue with cilostazol as well as metoprolol and Crestor * He has had stents placed in his femoral arteries * Resume his apixaban and aspirin. BPH? Stable? Continue with Flomax DVT: SCDs Medications at Discharge Home Medications albuterol sulfate 90 mcg/actuation aerosol inhaler 2 puff inhalation Q4H PRN PRN shortness of breath or wheezing 12/10/23 aspirin 81 mg capsule 81 mg PO DAILY heart disease 12/10/23 cilostazol 100 mg tablet 100 mg PO BID for stents 12/10/23 tamsulosin 0.4 mg capsule 0.4 mg PO DAILY urinary retention 12/10/23 rosuvastatin 40 mg tablet 40 mg PO DAILY heart 01/25/24 apixaban 5 mg tablet (Eliquis) 5 mg PO BID 04/30/24 metoprolol succinate 25 mg tablet,extended release 24 hr 25 mg PO DAILY 04/30/24 pantoprazole 20 mg tablet,delayed release 20 mg PO DAILY 04/30/24 empagliflozin 10 mg tablet (Jardiance) 10 mg PO DAILY dm 05/01/24 valsartan 40 mg tablet 20 mg PO BID bp 05/01/24 ferrous sulfate 325 mg (65 mg iron) tablet 325 mg PO QODAY #30 tabs 05/02/24 Hospital Course Operations None Procedures None Summary of Care Provided Minutes Spent on Discharge: 35 Hospital Course: Patient presents with abnormal blood work. His hemoglobin is 5.5. His workup showed that his ferritin was low but the remainder of his anemia workup was unremarkable. Patient received 2 units of blood and did receive IV iron while he was here. Patient be discharged with ferrous sulfate every other day dosing and instructed to have follow-up lab work in about a week's time. Weight / BMI Weight Weight: 62.1 kg Body Mass Index (BMI) 20.8 ABG / Lab / Microbiology Data 05/02/24 06:29 05/01/24 10:31 Laboratory: Laboratory Results - last 24 hr 04/30/24 23:34: Diff Path Review Reviewed 05/01/24 00:04: Haptoglobin 122 05/01/24 10:31: Vitamin B12 485, Folate 33.50, TSH 1.120 05/02/24 06:29: WBC 13.1 H, RBC 2.92 L, Hgb 7.7 L, Hct 24.7 L, MCV 84.6, MCH 26.4 L, MCHC 31.2 L, RDW Std Deviation 46.7 H, RDW Coeff of Mike 15.1 H, Plt Count 235, MPV 10.5, Immature Gran % (Auto) 0.400, Neut % (Auto) 75.2 H, Lymph % (Auto) 13.4 L, Mcmullen % (Auto) 7.5, Eos % (Auto) 2.8, Baso % (Auto) 0.7, Absolute Neuts (auto) 9.9 H, Absolute Lymphs (auto) 1.76, Nucleated RBC % 0 Microbiology: Microbiology 04/30/24 23:30 Stool Stool Occult Blood (ZEINAB) - Final D/C Instructions Discharge Diet: Low fat / Low cholesterol DC O2, CPAP, BIPAP Needs Additional Home O2 Discharge instructions: No DC home with Oxygen: No Meaningful Use Info Meaningful Use Meaningful Use Diagnoses (Choose all that apply): None applicable Ischemic Stroke Statin Dosing Therapy Reference: STATIN DOSE THERAPY REFERENCE: * Patients > 75 years receive moderate or high dose statin therapy. * Patients 75 years or YOUNGER should receive HIGH intensity statin dose unless contraindicated. You will be required to document reason for non-treatment if statin daily dose does not meet guidelines. HIGH DOSE STATIN THERAPY DAILY Atorvastatin > than or = to 40 mg Rosuvastatin > than or = to 20 mg Amlodipine + Atorvastatin > than or = to 2.5/40 mg Ezetimibe + Simvastatin 10/80 mg Simvastatin 80mg Discharge Plan Admission Admit Date/Time: 05/01/24 00:59 Primary Reason for Your Visit: anemia Attending Provider: Pablo Noel Primary Care Provider: Rex Lizama Consulting Providers: Joe Gomez Instructions Additional Instructions / Restrictions: You were anemic. You required 2 units of blood while you were here. Follow up with your primary care doctor and have follow up blood work in about 1 week. Discharge Orders/Prescriptions Prescriptions: New ferrous sulfate 325 mg (65 mg iron) tablet 325 mg PO QODAY Qty: 30 0RF Continued albuterol sulfate 90 mcg/actuation HFA aerosol inhaler 2 puff INHALATION Q4H PRN PRN (Reason: shortness of breath or wheezing) cilostazol 100 mg tablet 100 mg PO BID tamsulosin 0.4 mg capsule 0.4 mg PO DAILY aspirin 81 mg capsule 81 mg PO DAILY rosuvastatin 40 mg tablet 40 mg PO DAILY metoprolol succinate 25 mg tablet extended release 24 hr 25 mg PO DAILY Eliquis 5 mg tablet 5 mg PO BID pantoprazole 20 mg tablet,delayed release (DR/EC) 20 mg PO DAILY Jardiance 10 mg tablet 10 mg PO DAILY valsartan 40 mg tablet 20 mg PO BID Referrals / Follow Up: Brisa Cruz NP-C [Non-Staff] - Within 2 Weeks Disposition Disposition (needs filled in before D/C Order can be placed): Home, Self Care Charges/Coding Visit Charges Inpatient E&M: 87232 Disch Hosp >30min
--- NOTE | 2024-05-02 13:11 | CASEMGMT ---
Patient has order for discharge. RN CM in to discuss needs at discharge. Patient denies needs or help at discharge. Patient had no further questions or concerns.
[2024-05-02 14:00] VITALS: BP 118/56; PULSE 72; RESP 16; TEMP 36.6; O2SAT 98
== END 2024-05-02 14:56 | disposition home or self-care (01) | DRG 812 ==
LOC: ED 05-01 00:36 → PCU 05-01 01:18
PROVIDERS: Admitting Provider Family Medicine; Emergency Provider Surgery; PCP Family Medicine
DX: D62 Acute posthemorrhagic anemia (principal); E78.5 Hyperlipidemia, unspecified; J44.9 Chronic obstructive pulmonary disease, unspecified; I10 Essential (primary) hypertension; I73.9 Peripheral vascular disease, unspecified; I35.0 Nonrheumatic aortic (valve) stenosis; I25.10 Atherosclerotic heart disease of native coronary artery without angina pectoris; K21.9 Gastro-esophageal reflux disease without esophagitis; I25.2 Old myocardial infarction; Z79.02 Long term (current) use of antithrombotics/antiplatelets; Z87.891 Personal history of nicotine dependence; Z79.82 Long term (current) use of aspirin; Z79.01 Long term (current) use of anticoagulants; Z95.1 Presence of aortocoronary bypass graft; N40.0 Benign prostatic hyperplasia without lower urinary tract symptoms; Z95.2 Presence of prosthetic heart valve
CPT/HCPCS: 36415; 80048; 80076; 82274; 82607; 82728; 82746; 83010; 83540; 83550; 83615; 84443; 85025; 85045; 85610; 85730; 86850; 86900; 86901; 86920; 86922; 93005; 99285; 99406; P9016; A4216; J2916